=== PATIENT | female | born 1940 | race Caucasian/White ===

== ENCOUNTER 2019-01-04 10:35 | Outpatient (CLI) | payer MEDICARE, OTHER, SELFPAY ==
--- NOTE | 2019-01-04 10:29 | DI.RAD_ITS ---
SYMPTOMS/DIAGNOSIS: RT KNEE PAIN, LT KNEE PAIN LEFT KNEE: Three views. There is moderately severe narrowing of the medial femoral tibial joint space. Periarticular spurring is seen involving all three joint compartments. There is moderate narrowing of the patellofemoral joint. The bones are intact. No suspicious lytic or sclerotic lesions are seen. There does appear to be a small joint effusion. Vascular calcifications are present. IMPRESSION: Moderately severe osteoarthritis of the left knee. RIGHT KNEE: Three views. There is mild periarticular spurring seen in the femoral tibial joints. The joint spaces are otherwise well maintained. The bones are intact and normally mineralized. Vascular calcifications are seen in the soft tissues. IMPRESSION: Mild osteoarthritis of the right knee.
== END 2019-01-04 10:55 ==
PROVIDERS: PCP Physician Assistant; Referring Provider Physician Assistant; Visit Provider Student in an Organized Health Care Education/Training Program
DX: M25.561 Pain in right knee (principal); M17.11 Unilateral primary osteoarthritis, right knee; M25.562 Pain in left knee; M17.12 Unilateral primary osteoarthritis, left knee
CPT/HCPCS: 73562; 99203; 99213

== ENCOUNTER → 2019-02-01 10:21 | Outpatient (BNVA) | payer MEDICARE, OTHER, SELFPAY | PROVIDERS: PCP Physician Assistant; Referring Provider Physician Assistant; Visit Provider Student in an Organized Health Care Education/Training Program | DX: M25.562 Pain in left knee (principal); M17.12 Unilateral primary osteoarthritis, left knee | CPT/HCPCS: 20610; 99213; J1040 ==

== ENCOUNTER 2019-12-18 15:04 | Inpatient (IN) | payer MEDICARE, OTHER, SELFPAY ==
[2019-12-18] VITALS (28 sets, daily range): BP systolic 120–175; BP diastolic 63–95; PULSE 75–111; RESP 16–32; TEMP 36.7–40.2; O2SAT 93–97
[2019-12-18] MEDS: Normal Saline 250 ML IV (15:54)
[2019-12-18 15:56] LABS: Abs Immature Grans 0.02 k/cumm (0.0-0.09); Absolute Basophil Count 0.02 k/cumm (0.0-0.2); Absolute Lymphocyte Count 0.44 k/cumm (1.2-3.4); Absolute Monocyte Count 0.95 k/cumm (0.11-0.7); Basophils % 0.2; HCT 42.2 % (36.0-46.0); Immature Grans % 0.2 %; Lymphocytes % 3.8; Mean Corp. HGB Concentration 33.2 g/dL (32.0-36.0); Mean Corpuscular Hemoglobin 32.2 pg (27.0-33.0); Mean Platelet Volume 10.6 fL (8.0-11.0); Monocytes % 8.2; Neutrophils % 87.6; Platelet Count 177 x1000/uL (130-400); RBC 4.35 m/cumm (4.00-5.20); RBC Distribution Width 13.3 % (11.7-14.6); White Blood Cell Count 11.64 k/cumm (4.4-10.8)
--- NOTE | 2019-12-18 16:06 | ED.GENADUL_ITS ---
Discharge Plan Discharge Details Chief Complaint: Nk/Back Pain Primary Care Provider: Unknown,Unknown ED Provider: Bk Mancia Home Meds and New Rx's Prescriptions: No Action levothyroxine [Synthroid] 50 MCG tablet 50 mcg PO DAILY AM RF: 0 simvastatin 20 MG tablet 20 mg PO HS RF: 0 nitroglycerin [Nitrostat] 0.4 MG tablet, sublingual 0.4 mg Sublingual DIRECTED PRNRF: 0 omeprazole 20 MG capsule,delayed release(DR/EC) 20 mg PO DAILY AM RF: 0 aspirin 81 MG tablet,chewable 81 mg PO DAILY AM RF: 0 timolol maleate 15 ML drops 5 ml Ophthalmic DAILY AM RF: 0 mometasone 45 GM cream 15 gm Topical DAILY PRN PRNRF: 0 Gerber Multivitamin with Mineral 1 EACH tablet 1 ea PO HS RF: 0 celecoxib [Celebrex] 200 MG capsule 200 mg PO DAILY AM RF: 0 oxybutynin chloride 5 MG tablet extended release 24hr 5 mg PO HS RF: 0 venlafaxine 75 mg Tablet 75 mg PO DAILY AM RF: 0 acetaminophen [Tylenol Extra Strength] 500 mg Tablet 1,000 mg PO HS RF: 0 lisinopril 5 mg Tablet 5 mg PO HS RF: 0 metoclopramide HCl [Reglan] 10 mg Tablet 10 mg PO DAILY AM RF: 0 Medical Decision Making 79-year-old female presents complaining of low back pain for 4 days time. Worsened today while she was on route back to her home where she lives alone. She arrives afebrile, interactive, well-appearing. She has normal motor and sensory function of the lower extremity. She denies trauma or recent illness. After approximately 90 minutes in the emergency department, the patient appeared less responsive to the nurses and they found her to have spiked a temperature to 104 degrees. Differential diagnosis includes urinary tract infection, colitis, occult presentation of diverticulitis, as well as occult presentation of respiratory infection. Patient referred for laboratory testing, chest x-ray, CT scan of the abdomen. Urinalysis is notable for large leuk esterase, greater than 50 white blood cells per high-powered field and no epithelial cells. Consistent with pyuria. CT images: Reveal bilateral hydronephrosis, the left side appears chronic with some atrophic changes of the kidney. 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 See formal report. Labs HPI General Mode of arrival: ambulatory . Date/Time Provider Initiated Documentation: 12/18/19 15:05 . Limitations to Documentation: no limitations . Information obtained by: patient . History of Present Illness 79 year old F presents to the emergency department with the chief complaint of Low back pain for 4 days, worse when seated., described as moderate, Quality is described as dull and constant, and is localized to the back. Patient reports no radiation. Patient started experiencing this day(s) and it has been constant. Rest improves symptom(s), Other factors that worsen symptoms (Seems to be worse while sitting) . Patient notes other (No numbness, weakness, change to bowel or bladder habits). Patient did receive the following treatments prior to arrival, none Related Data Home Medications Medication Instructions Recorded Confirmed aspirin 81 mg PO DAILY AM 02/14/16 12/18/19 celecoxib [CeleBREX] 200 mg PO DAILY AM 02/14/16 12/18/19 levothyroxine [Synthroid] 50 mcg PO DAILY AM 02/14/16 12/18/19 mometasone 15 gm TOPICAL DAILY PRN PRN 02/14/16 12/18/19 mv,with [id number] 1 ea PO HS 02/14/16 12/18/19 [Gerber Multivit For Women Caplet] nitroglycerin [Nitrostat] 0.4 mg SUBLINGUAL DIRECTED PRN 02/14/16 12/18/19 omeprazole 20 mg PO DAILY AM 02/14/16 12/18/19 oxybutynin chloride 5 mg PO HS 02/14/16 12/18/19 simvastatin 20 mg PO HS 02/14/16 12/18/19 timolol maleate 5 ml OPHTHALMIC DAILY AM 02/14/16 12/18/19 acetaminophen [Tylenol Extra 1,000 mg PO HS 12/18/19 12/18/19 Strength] lisinopril 5 mg PO HS 12/18/19 12/18/19 metoclopramide HCl [Reglan] 10 mg PO DAILY AM 12/18/19 12/18/19 venlafaxine 75 mg PO DAILY AM 12/18/19 12/18/19 Allergies Allergy/AdvReac Type Severity Reaction Status Date / Time ibuprofen AdvReac Intermediate abd pain Unverified 12/18/19 15:19 General Stated Complaint: Nk/Back Pain HOLLAND: 3 Review of Systems Narrative: 6 systems reviewed and otherwise negative [facility] Social History Smoking/Tobacco Use Status: Never Alcohol Intake: current Alcohol Intake frequency: 3 or more drinks per day Alcohol type: wine Drug use: Never Substance use type: does not use Do you feel safe at home: Yes Do you feel safe in your relationship?: Yes Exam Narrative Exam Narrative: GEN: awake, alert, oriented 3. Pleasant, well groomed, interactive. HEAD: Normocephalic, atraumatic ENT: Mucous membranes moist, oropharynx unremarkable, External ear exam unremarkable EYES: PERRL, EOMI NECK: Full ROM, no LORRAINE, no menigismus CHEST/RESP: Nontender, clear to auscultation bilateral, no wheeze/rhonchi/rales CARDIOVASCULAR: RRR, no murmur, rub pramod. 2+ Rad pulse bilateral ABDOMEN: Soft, nontender, no mass. +Bowel sound Back: No midline step-off, tenderness, deformity, there is skin discoloration at the right superior gluteal cleft without fluctuance or tenderness EXT: Full ROM, no edema, no rash. Motor 5 out of 5, sensation intact throughout. Neuro: Grossly normal neurologic exam, conversant, interactive. Psych: Speech fluent, thoughts congruent, affect normal Course Vital Signs Vital signs: Vital Signs Temperature 36.7 C 12/18/19 15:15 Pulse 75 12/18/19 15:15 Respiratory Rate 18 12/18/19 15:15 Blood Pressure 144/88 H 12/18/19 15:15 Pulse Oximetry 95 12/18/19 15:15 Temperature 36.7 C 12/18/19 15:15 Temperature Source Temporal Artery Scan 12/18/19 15:15 Pulse 75 12/18/19 15:15 Respiratory Rate 18 12/18/19 15:15 Respiratory Effort Non-Labored 12/18/19 15:20 Blood Pressure 144/88 H 12/18/19 15:15 Blood Pressure Position Supine 12/18/19 15:15 Pulse Oximetry 95 12/18/19 15:15 Oxygen Delivery Method Room Air 12/18/19 15:15 Oxygen Flow Rate 0 12/18/19 15:15 Pain Level 5 12/18/19 15:15 Lab/Test Results Lab/Test Results: Laboratory Tests Range/Units 12/18/19 15:35 WBC (4.4-10.8) k/cumm 11.64 H RBC (4.00-5.20) m/cumm 4.35 Hgb (12.0-15.5) g/dL 14.0 Hct (36.0-46.0) % 42.2 MCV (80-95) fL 97.0 H MCH (27.0-33.0) pg 32.2 MCHC (32.0-36.0) g/dL 33.2 RDW (11.7-14.6) % 13.3 Plt Count (130-400) x1000/uL 177 MPV (8.0-11.0) fL 10.6 Immature Gran % % 0.2 Neutrophils % 87.6 Lymphocytes % 3.8 Monocytes % 8.2 Eosinophils % 0.0 Basophils % 0.2 Absolute Neutrophils (1.2-6.7) k/cumm 10.20 H Absolute Lymphocytes (1.2-3.4) k/cumm 0.44 L Absolute Monocytes (0.11-0.7) k/cumm 0.95 H Absolute Eosinophils (0.0-0.7) k/cumm 0.00 Absolute Basophils (0.0-0.2) k/cumm 0.02
[2019-12-18 16:09] LABS: ALT 38 U/L (14-59); AST 32 U/L (15-37); Albumin 3.6 g/dL (3.4-5.0); Alkaline Phosphatase 73 U/L (46-116); Anion Gap 8.4 mmol/L (3-11); BUN 27 mg/dL (7-18); Bilirubin, Total 0.4 mg/dL (0.2-1.0); CO2 26.6 mmol/L (21.0-32.0); CREATININE 1.67 mg/dL (0.55-1.02); Calcium 9.1 mg/dL (8.5-10.1); Chloride 104 mmol/L (98-107); Estimated GFR 29.67 (mL/min/1.73m2); Glucose 154 mg/dL (74-106); Potassium 4.2 mmol/L (3.5-5.1); Sodium 139 mmol/L (136-145)
--- NOTE | 2019-12-18 16:13 | DI.CT_ITS ---
EXAM: CT ABDOMEN PELVIS WO CLINICAL HISTORY: low back and groin pain. TECHNIQUE: Imaging Protocol: Axial computed tomography images with coronal and sagittal reformatted images were created and reviewed. Exam is limited by patient motion. The patient was unable to follow directions. There is artifact i n the pelvis from a right hip prosthesis. Oral: no COMPARISON: No exams were available for comparison FINDINGS: ABDOMEN: Lung Bases: Normal where visualized. Liver: Fatty infiltration. No measurable mass. Gallbladder and biliary tract: Status post cholecystectomy. No biliary dilation. Pancreas: Normal density, no abnormal calcifications or inflammatory process. Spleen: Normal. Kidneys: There is a 9 millimeter stone in the right ureteropelvic junction causing moderate hydroneph rosis. The right kidney is mildly edematous. There is mild perinephric stranding. There is a stone at the left ureteropelvic junction measuring 14 x 18 millimeters. There is mild left hydronephrosis . There are 2 nonobstructing stones seen at the lower pole of the left kidney. No masses seen. Adrenal glands: No masses seen. Lymph nodes: Within normal limits. Abdominal Aorta: Abdominal portion non-dilated. PELVIS: Bladder: Small amount of air is seen within the bladder which may be secondary to recent catheterizat ion. Symmetric distention, no gross wall thickening. Bowel: No obstruction or bowel wall thickening. Peritoneal cavity: No ascites, collection or mesenteric inflammatory response. Reproductive organs: Within normal limits. Bones: Degenerative changes, greatest at L5-S1. IMPRESSION: 9 millimeter stone at the right ureteropelvic junction causing moderate hydronephrosis.. [address] stone at the left ureteropelvic junction causing mild hydronephrosis. RADIATION DOSE DELIVERED: 900.68mGy.cm Total DLP DATA REPOSITORY: All CT scans at this facility are submitted to the National Radiology Data Registry (NRDR) Dose Index Registry (DIR) with the [employer] (ACR). RADIATION OPTIMIZATION: All CT scans at this facility use at least one of these dose optimization te chniques: automated exposure control; mA and/or kV adjustment per patient size (includes targeted exa ms where dose is matched to clinical indication); or iterative reconstruction.
[2019-12-18] MEDS: ACETAMINOPHEN 1,000 MG/100 ML BTL 400 MG IVPB (16:34)
--- NOTE | 2019-12-18 16:52 | DI.RAD_ITS ---
EXAM: XR CHEST 2V PA LATERAL CLINICAL HISTORY: fever TECHNIQUE: 2D digital imaging was performed. COMPARISON: CT CT ABDOMEN PELVIS WO from 12/18/2019 FINDINGS: The heart size is within normal limits. The aorta is ectatic. The right diaphragm is mildly elevat ed. The lungs appear clear. No infiltrate or effusion is seen. There are no thoracic compression f ractures. IMPRESSION: No acute abnormality.
[2019-12-18 17:19] LABS: Bilirubin Negative (Negative); Blood Moderate (Negative); Clarity Clear (Clear); Glucose Negative (Negative); Ketones Negative (Negative); Leukocyte Esterase Large (Negative); Nitrite Negative (Negative); Urobilinogen 0.2 EU/dL (Up TO 0.2); pH 7.5 (5-8)
[2019-12-18] MEDS: Normal Saline 1,000 ML 125 ML IV ×2 (17:21→23:16)
[2019-12-18 17:22] LABS: C & S Indicated? Yes
[2019-12-18 17:23] LABS: Bacteria Negative HPF (Negative); Crystals Negative HPF (Negative); Epithelial Cells Negative HPF (Negative); Mucus Negative (Negative); Other Cells Few Renal (Negative); RBC Negative HPF (0-2); WBC >50 HPF (0-5)
--- NOTE | 2019-12-18 18:11 | DI.VRAD_ITS ---
Addendum created by Howard Prince MD on 12/18/2019 6:14:21 PM EDT Findings were discussed with RACHEL PINA at 12/18/2019 6:14 PM EDT. Initial report created on 12/18/2019 6:10:59 PM EDT PROCEDURE INFORMATION: Exam: CT Abdomen And Pelvis Without Contrast Exam date and time: 12/18/2019 5:44 PM Age: 79 years old Clinical indication: Fever; Patient HX: PT AMS TECHNIQUE: Imaging protocol: Computed tomography of the abdomen and pelvis without contrast. COMPARISON: No relevant prior studies available. FINDINGS: Heart: There is some minimal pericardial thickening anteriorly likely representing a small pericardial effusion. Lungs: There is mild dependent atelectasis. Liver: There is a diffuse decrease in hepatic parenchymal density, consistent with severe fatty infiltration. Gallbladder and bile ducts: There has been a cholecystectomy. Pancreas: Normal. No ductal dilation. Spleen: The spleen is normal. Adrenals: Normal. No mass. Kidneys and ureters: There is mild right hydronephrosis with an obstructing 9 mm calculus (423 Hounsfield units) in the ureteropelvic junction. This calculus is faintly visualized on the plan checker view. There is a stone in the left ureteropelvic junction which measures 14 mm in maximal axial diameter and 18 mm longitudinally. This does not appear to be causing obstruction although there is minimal left hydronephrosis and proximal hydroureter. A stricture more distal in the left ureter cannot be excluded. This calculus is also visible on the plan checker view. There are tiny calculi and likely some gravel in the dependent calices of both kidneys. Stomach and bowel: Unremarkable. No obstruction. No mucosal thickening. Appendix: No evidence of appendicitis. Intraperitoneal space: Unremarkable. No free air. No significant fluid collection. Vasculature: Unremarkable. No abdominal aortic aneurysm. Lymph nodes: Unremarkable. No enlarged lymph nodes. Bladder: There is a small amount of gas in the urinary bladder. If there has not been recent instrumentation, gas-forming organism or, less likely fistula cannot be excluded. Reproductive: Unremarkable as visualized. Bones/joints: There is a partially visualized total right hip replacement. There is moderate to marked degenerative disc disease at L5-S1. There is mild anterior spondylolisthesis of L4 on L5 likely due to degenerative changes of the facet joints. No fracture is seen. The bones are diffusely demineralized. Soft tissues: There are periumbilical abdominal coils suggesting prior hernia repair. IMPRESSION: 1. Mild bilateral hydronephrosis. On the right this appears to be due to an obstructing 9 mm UPJ calculus. On the left there is also a UPJ calculus although for it does not appear to be obstructing. 2. Small amount of air in the urinary bladder which could reflect recent instrumentation, gas-forming organism, or less likely fistula. No apparent fistula is visible. 3. Marked fatty infiltration of the liver. Dictated and Authenticated by: Howard Prince MD. Ordering:RAYMUNDO Bourgeois MD
--- NOTE | 2019-12-18 18:18 | DI.VRAD_ITS ---
PROCEDURE INFORMATION: Exam: XR Chest, 2 Views Exam date and time: 12/18/2019 5:51 PM Age: 79 years old Clinical indication: Fever TECHNIQUE: Imaging protocol: XR of the chest Views: 2 views. COMPARISON: No relevant prior studies available. FINDINGS: Lungs: Unremarkable. No consolidation. Pleural space: Unremarkable. No pleural effusion. No pneumothorax. Heart/Mediastinum: Unremarkable. No cardiomegaly. Vasculature: The thoracic aorta is tortuous and ectatic. Prominent aortic shadow in the medial right lung base and posteriorly on the lateral view is shown to partly represent periaortic fat on earlier CT abdomen. Bones/joints: Unremarkable for age. IMPRESSION: No acute findings. Dictated and Authenticated by: Howard Prince MD. Ordering:RAYMUNDO Bourgeois MD
--- NOTE | 2019-12-18 19:08 | W.PM.HP.N ---
Date of service: 12/18/19 Time of Service: 19:08 Assessment and Plan Assessment and plan (1) UTI (urinary tract infection): Start date: 12/18/19 Status: Acute Assessment and plan: This is a 79-year-old lady presented to the ED with back pain and eventually having a significant fever spike while in the ED and found to have an obstructing ureteral stone on the right with hydronephrosis and possible pyelonephritis. Started on IV Rocephin after urine and blood cultures. Dr. Holman the urologist did consult from the ED and then placed a right ureteral stent brother patient coming to the [facility] floor. We will continue on IV Rocephin with increased oral hydration with follow-up on cultures and adjustment of medical therapy to oral therapy as appropriate. Dr. Holman will remain in consultation. Qualifiers: Urinary tract infection type: acute pyelonephritis Qualified Code(s): N10 - Acute pyelonephritis (2) Ureteral calculus: Start date: 12/18/19 Status: Acute Assessment and plan: Radiology no history of renal stones in the past but has chronic hydronephrosis with evidence of some scarring on the left. She was treated acutely by Dr. Holman the urologist in consultation and he will continue to follow with hospice. We may initiate IV hydration of the patient doing well with oral hydration. I will place her on Flomax. History of Present Illness History of Present Illness Chief Complaint: Low back pain for 4 days with acute onset fever Narrative: This is a 79-year-old female patient recently living alone brought in by her daughter who is a ICU nurse at this hospital. She had a 4-day history of low back pain which is not improving and was worse with sitting. In the ED she spiked a temperature up to 104 ?F and her urinalysis was positive for UTI as well as CT scan revealing hydronephrosis bilaterally but acutely on the right with a UPJ junction 9 mm renal stone obstructing the right side with some evidence of pyelonephritis. Patient was started on Rocephin after urine and blood cultures and Dr. Holman the urologist was consulted from the ED and brought the patient to the OR for stent into the right ureter prior to me seeing the patient. At the time I saw the patient she was slightly confused and a poor historian but comfortable appearing though she had diffuse sweating appeared to have just spiked another temperature. She was vague about her back pain and did not complain of any abdominal pain, nausea or vomiting. She denied any urinary symptoms. As stated she is a poor historian. She was not attended by her daughter at the time of my visit. Review of Systems Narrative: 13 point review of systems otherwise unrevealing or stable as best can be ascertained with patient being a poor historian. I am unsure whether she has early dementia but has had some stressors recently reported by the ED physician that she lost her within the last weeks. She does have a history of depression. She is not on any medications indicating dementia. [facility] Medical History (Updated 12/19/19 @ 00:18 by Grover Castro) CAD (coronary artery disease), elem coronary artery (Acute) Depression (Chronic) GERD (gastroesophageal reflux disease) (Chronic) Glaucoma (Chronic) HTN (hypertension) (Chronic) Hyperlipidemia (Acute) Hypothyroid (Chronic) OAB (overactive bladder) (Acute) Osteoarthritis (Chronic) Social History Smoking/Tobacco Use Status: Never Alcohol Intake: current Alcohol Intake frequency: 3 or more drinks per day Alcohol type: wine Drug use: Never Substance use type: does not use Do you feel safe at home: Yes Do you feel safe in your relationship?: Yes Meds Home Medications and Allergies Home Medications Medication Instructions Recorded Confirmed Type aspirin 81 mg PO DAILY AM 02/14/16 12/18/19 History celecoxib [CeleBREX] 200 mg PO DAILY AM 02/14/16 12/18/19 History levothyroxine [Synthroid] 50 mcg PO DAILY AM 02/14/16 12/18/19 History mometasone 15 gm TOPICAL DAILY PRN PRN 02/14/16 12/18/19 History mv,with [id number] 1 ea PO HS 02/14/16 12/18/19 History [Gerber Multivit For Women Caplet] nitroglycerin [Nitrostat] 0.4 mg SUBLINGUAL DIRECTED PRN 02/14/16 12/18/19 History omeprazole 20 mg PO DAILY AM 02/14/16 12/18/19 History oxybutynin chloride 5 mg PO HS 02/14/16 12/18/19 History simvastatin 20 mg PO HS 02/14/16 12/18/19 History timolol maleate 5 ml OPHTHALMIC DAILY AM 02/14/16 12/18/19 History acetaminophen [Tylenol Extra 1,000 mg PO HS 12/18/19 12/18/19 History Strength] lisinopril 5 mg PO HS 12/18/19 12/18/19 History metoclopramide HCl [Reglan] 10 mg PO DAILY AM 12/18/19 12/18/19 History venlafaxine 75 mg PO DAILY AM 12/18/19 12/18/19 History Allergies Allergy/AdvReac Type Severity Reaction Status Date / Time ibuprofen AdvReac Intermediate abd pain Unverified 12/18/19 15:19 Exam Narrative Exam Narrative: General: Patient has a flattened affect with fair eye contact and no variation. She is alert and oriented to place and person, not to time or purpose. She appears appropriate for age and is in no acute distress. Skin: Pale, warm and diaphoretic appearing to have just broken a fever. HEENT: Normocephalic, eyes with pupils equal and reactive light symmetrically, extraocular movement intact and sclera anicteric. Oral mucosa with pink moist mucosa. Neck: Supple without JVD. Lungs: Fair aeration, clear to auscultation and percussion. Back: Kyphotic with no CVA tenderness. Decreased range of motion. Heart: Regular rate and rhythm with quite systolic murmur left sternal border variable with inspiration. No gallops or rubs. Breast: Exam deferred. Abdomen: Obese contour, soft with no focalizing tenderness or guarding. No palpable hepatosplenomegaly. Bowel sounds positive all quadrants. Genitalia/rectal: Exam deferred. Extremities: Without clubbing, cyanosis or edema with diffuse bony osteoarthritic changes. Neuro: No focalizing motor deficits, cranial nerves II through XII grossly intact except for decreased hearing acuity, no tremors. Psych: Flattened affect with depressed mood at the time of visit the patient. Remote memory intact. Recent memory may have some deficits. Patient is a poor historian. Results Imaging Imaging Studies: PROCEDURE INFORMATION: Exam: CT Abdomen And Pelvis Without Contrast Exam date and time: 12/18/2019 5:44 PM Age: 79 years old Clinical indication: Fever; Patient HX: PT AMS TECHNIQUE: Imaging protocol: Computed tomography of the abdomen and pelvis without contrast. COMPARISON: No relevant prior studies available. FINDINGS: Heart: There is some minimal pericardial thickening anteriorly likely representing a small pericardial effusion. Lungs: There is mild dependent atelectasis. Liver: There is a diffuse decrease in hepatic parenchymal density, consistent with severe fatty infiltration. Gallbladder and bile ducts: There has been a cholecystectomy. Pancreas: Normal. No ductal dilation. Spleen: The spleen is normal. Adrenals: Normal. No mass. Kidneys and ureters: There is mild right hydronephrosis with an obstructing 9 mm calculus (423 Hounsfield units) in the ureteropelvic junction. This calculus is faintly visualized on the construction job cost estimator view. There is a stone in the left ureteropelvic junction which measures 14 mm in maximal axial diameter and 18 mm longitudinally. This does not appear to be causing obstruction although there is minimal left hydronephrosis and proximal hydroureter. A stricture more distal in the left ureter cannot be excluded. This calculus is also visible on the construction job cost estimator view. There are tiny calculi and likely some gravel in the dependent calices of both kidneys. Stomach and bowel: Unremarkable. No obstruction. No mucosal thickening. Appendix: No evidence of appendicitis. Intraperitoneal space: Unremarkable. No free air. No significant fluid collection. Vasculature: Unremarkable. No abdominal aortic aneurysm. Lymph nodes: Unremarkable. No enlarged lymph nodes. Bladder: There is a small amount of gas in the urinary bladder. If there has not been recent instrumentation, gas-forming organism or, less likely fistula cannot be excluded. Reproductive: Unremarkable as visualized. Bones/joints: There is a partially visualized total right hip replacement. There is moderate to marked degenerative disc disease at L5-S1. There is mild anterior spondylolisthesis of L4 on L5 likely due to degenerative changes of the facet joints. No fracture is seen. The bones are diffusely demineralized. Soft tissues: There are periumbilical abdominal coils suggesting prior hernia repair. IMPRESSION: 1. Mild bilateral hydronephrosis. On the right this appears to be due to an obstructing 9 mm UPJ calculus. On the left there is also a UPJ calculus although for it does not appear to be obstructing. 2. Small amount of air in the urinary bladder which could reflect recent instrumentation, gas-forming organism, or less likely fistula. No apparent fistula is visible. 3. Marked fatty infiltration of the liver. Dictated and Authenticated by: Howard Prince MD PROCEDURE INFORMATION: Exam: XR Chest, 2 Views Exam date and time: 12/18/2019 5:51 PM Age: 79 years old Clinical indication: Fever TECHNIQUE: Imaging protocol: XR of the chest Views: 2 views. COMPARISON: No relevant prior studies available. FINDINGS: Lungs: Unremarkable. No consolidation. Pleural space: Unremarkable. No pleural effusion. No pneumothorax. Heart/Mediastinum: Unremarkable. No cardiomegaly. Vasculature: The thoracic aorta is tortuous and ectatic. Prominent aortic shadow in the medial right lung base and posteriorly on the lateral view is shown to partly represent periaortic fat on earlier CT abdomen. Bones/joints: Unremarkable for age. IMPRESSION: No acute findings. Dictated and Authenticated by: Howard Prince MD. Labs Result diagrams: 12/18/19 15:35 12/18/19 15:35 Labs: Laboratory Results - last 24 hr 12/18/19 12/18/19 12/18/19 15:35 15:35 17:00 WBC 11.64 H RBC 4.35 Hgb 14.0 Hct 42.2 MCV 97.0 H MCH 32.2 MCHC 33.2 RDW 13.3 Plt Count 177 MPV 10.6 Immature Gran % 0.2 Neutrophils % 87.6 Lymphocytes % 3.8 Monocytes % 8.2 Eosinophils % 0.0 Basophils % 0.2 Absolute Neutrophils 10.20 H Absolute Lymphocytes 0.44 L Absolute Monocytes 0.95 H Absolute Eosinophils 0.00 Absolute Basophils 0.02 Sodium 139 Potassium 4.2 Chloride 104 Carbon Dioxide 26.6 Anion Gap 8.4 BUN 27 H Creatinine 1.67 H Estimated GFR/1.73 m2 29.67 Glucose 154 H Calcium 9.1 Total Bilirubin 0.4 AST 32 ALT 38 Alkaline Phosphatase 73 Total Protein 8.0 Albumin 3.6 Urine Color Yellow Urine Clarity Clear Urine pH 7.5 Ur Specific [place] 1.020 Urine Protein 100 H Urine Ketones Negative Urine Blood Moderate H Urine Nitrite Negative Urine Bilirubin Negative Urine Urobilinogen 0.2 Ur Leukocyte Esterase Large H Urine RBC Negative Urine WBC >50 H Ur Epithelial Cells Negative Urine Crystals Negative Urine Bacteria Negative Urine Mucus Negative Urine Other Few renal Ur Culture Indicated? Yes Urine Glucose Negative Last Vital Signs Temp 36.7 C 12/18/19 18:16 Pulse 106 H 12/18/19 18:16 Resp 31 H 12/18/19 18:20 BP 175/90 H 12/18/19 18:16 Pulse Ox 95 12/18/19 18:16 COVID-19 Screening In the past 14 days, have you traveled outside of [place] or [place]?: NO Had IN PERSON contact w/suspected or confirmed C-19 person: No
[2019-12-18] MEDS: cefTRIAXone 1 GM/50 ML BAG IVPB (19:11)
--- NOTE | 2019-12-18 19:32 | W.UROLOGYCON ---
Date of service: 12/18/19 Time of Service: 19:32 Assessment and Plan Assessment and plan (1) Sepsis syndrome: Status: Acute Assessment and plan: We will plan on placing a right ureteral stent to allow any infected urine to drain while awaiting her blood and urine cultures and giving her broad-spectrum antibiotics. Once her infection has been cleared, we will be able to plan ureteroscopy with holmium laser of the stone on an elective basis rather than an emergent one. (2) Ureteral calculus: Status: Acute History of Present Illness History of Present Illness Chief Complaint: Ureteral stones Narrative: This is a 79-year-old woman who has been complaining of back pain for the past 5 to 7 days. This morning, she began having pain in the lower quadrants as well. She describes an overall feeling of just not feeling well. She was visiting with her daughter when she asked to be brought back home. On the way home, since she was feeling poorly, she asked to be brought to the emergency room. While in the emergency room, she spiked a temperature over 40. She [address] scanning which showed a right proximal ureteral stone with marked hydronephrosis and perinephric stranding. There is a left UPJ stone with some renal atrophy on the left and dilation. There is no stranding on the left side. She is being admitted for IV antibiotics and drainage of her presumed infected right kidney. She has no prior history of kidney stones. Review of Systems Constitutional Constitutional: Reports chills, Reports fever(s) and Reports weakness Cardiovascular Cardiovascular: Denies chest pain, Denies irregular heart rhythm and Denies dyspnea Respiratory Respiratory: Denies cough and Denies dyspnea Gastrointestinal Gastrointestinal: Reports abdominal pain and Denies vomiting Musculoskeletal Musculoskeletal: Reports myalgias Neurologic Neurologic: Denies convulsions and Reports weakness Hematologic/Lymphatic Hematologic/Lymphatic: Denies easy bleeding and Denies easy bruising [facility] Social History Smoking/Tobacco Use Status: Never Alcohol Intake: current Alcohol Intake frequency: 3 or more drinks per day Alcohol type: wine Drug use: Never Substance use type: does not use Do you feel safe at home: Yes Do you feel safe in your relationship?: Yes Exam Narrative Exam Narrative: She is cooperative. She does not look flushed at this time. Neck Neck: supple Resp Effort & Inspection: normal respiratory effort Auscultation: clear to auscultation bilaterally Cardio Rate: regular rate Rhythm: regular rhythm GI Palpation: soft and no guarding Neuro General: patient alert and patient awake Results Last Vital Signs Temp 36.7 C 12/18/19 18:16 Pulse 106 H 12/18/19 18:16 Resp 31 H 12/18/19 18:20 BP 175/90 H 12/18/19 18:16 Pulse Ox 95 12/18/19 18:16 Labs Result diagrams: 12/18/19 15:35 12/18/19 15:35 Labs: Laboratory Results - last 24 hr 12/18/19 12/18/19 12/18/19 15:35 15:35 17:00 WBC 11.64 H RBC 4.35 Hgb 14.0 Hct 42.2 MCV 97.0 H MCH 32.2 MCHC 33.2 RDW 13.3 Plt Count 177 MPV 10.6 Immature Gran % 0.2 Neutrophils % 87.6 Lymphocytes % 3.8 Monocytes % 8.2 Eosinophils % 0.0 Basophils % 0.2 Absolute Neutrophils 10.20 H Absolute Lymphocytes 0.44 L Absolute Monocytes 0.95 H Absolute Eosinophils 0.00 Absolute Basophils 0.02 Sodium 139 Potassium 4.2 Chloride 104 Carbon Dioxide 26.6 Anion Gap 8.4 BUN 27 H Creatinine 1.67 H Estimated GFR/1.73 m2 29.67 Glucose 154 H Calcium 9.1 Total Bilirubin 0.4 AST 32 ALT 38 Alkaline Phosphatase 73 Total Protein 8.0 Albumin 3.6 Urine Color Yellow Urine Clarity Clear Urine pH 7.5 Ur Specific [place] 1.020 Urine Protein 100 H Urine Ketones Negative Urine Blood Moderate H Urine Nitrite Negative Urine Bilirubin Negative Urine Urobilinogen 0.2 Ur Leukocyte Esterase Large H Urine RBC Negative Urine WBC >50 H Ur Epithelial Cells Negative Urine Crystals Negative Urine Bacteria Negative Urine Mucus Negative Urine Other Few renal Ur Culture Indicated? Yes Urine Glucose Negative
[2019-12-18 19:51] LABS: TSH (W/Ref FT4) 2.74 uIU/mL (0.36-3.74)
--- NOTE | 2019-12-18 20:00 | DI.RAD_ITS ---
EXAM: XR RETROGRADE IN OR CLINICAL HISTORY: Ureteral calculus, sepsis. TECHNIQUE: 2D and realtime digital imaging was performed. CONTRAST MATERIAL: Please see procedure note COMPARISON: No exams were available for comparison FINDINGS: Fluoroscopy was provided in the OR. Some contrast is seen within the left kidney. A stent is seen. Please see procedure note for details. FLUORO TIME: 30.9 seconds RADIATION DOSE DELIVERED:
[2019-12-18] MEDS: Lidocaine 2% Jelly 6 ML SYR (20:46)
[2019-12-18] MEDS: Omnipaque 300 MG/ML 50 ML BTL (20:54)
--- NOTE | 2019-12-18 21:05 | ROE_ITS ---
Date of service: 12/18/19 Time of Service: 21:05 Operative Note Operative Note DATE OF PROCEDURE: 12/18/19 PRE-OP DIAGNOSIS: Right ureteral stone, left kidney stone POST-OP DIAGNOSIS: same PROCEDURE: Cystoscopy, bilateral retrograde pyelogram, insert bilateral ureteral stents SURGEON: Kiran Holman ANESTHESIA: MAC ESTIMATED BLOOD LOSS: 0 PATHOLOGY: none sent COMPLICATIONS: None Patient was transported to: floor Patient's condition: stable Implants: Bilateral 6 [place] 22 x 30 cm stents Indications: This is a 79-year-old woman who presented to the emergency room with back pain and weakness. While she was in the emergency room, she spiked a fever to [address] scan she was found to have bilateral urolithiasis. The right stone was in the proximal ureter and there was associated hydronephrosis and perinephric stranding. The left stone was at the ureteropelvic junction and had some atrophic changes in the kidney along with dilation of the collecting system but no perinephric stranding. Because of her presumed sepsis and obstructing stone, she presents for stent placement Procedure Description: The patient was brought to the operating room on 12/18/2019. She is placed in the dorsal lithotomy position and given monitored anesthesia care. Her genitalia is prepped and draped. 2% Xylocaine jelly was instilled into the urethra to act as a local anesthetic. A 22 [place] rigid cystoscope was passed through the urethra into the bladder. The bladder was inspected with a 30 degree lens. The bladder mucosa appeared somewhat hyperemic. The right ureteral orifice was visualized and a 6 [place] access catheter was passed through the cystoscope into the right ureteral orifice. Retrograde film was obtained by injecting Omnipaque through the access catheter under fluoroscopic guidance. Large filling defect was seen in the proximal ureter. The guidewire was then passed through the access catheter and maneuvered up the right ureter. The access catheter was removed and a 6 [place] variable length stent was advanced over the wire. The proximal end of the stent was seen curled in the renal pelvis and the distal end was seen curled within the bladder. Murky urine was seen draining from the right kidney. The same procedure was then performed on the patient's left side. The left orifice was cannulated and a retrograde film showed a filling defect in the renal pelvis. A Glidewire was advanced and the access catheter was removed. A 6 [place] variable length stent was then advanced over the wire. In this case, the proximal end of the stent was placed into the upper pole calyx and the distal end was curled within the bladder. The positioning of the stents was confirmed both fluoroscopically and cystoscopically. The cystoscope was removed a 16 [place] Oropeza catheter was then passed through the urethra into the bladder. The catheter balloon was inflated with 10 cc of sterile water and the catheter was hooked to gravity drainage. The patient tolerated this procedure well. She will be taken upstairs to her room [facility] unit.
[2019-12-18] MEDS: Acetaminophen 500 MG TAB 1000 MG PO (22:11)
[2019-12-18] MEDS: Oxybutynin-CR 5 MG TABCR PO (22:11)
[2019-12-18] MEDS: Heparin 5,000 UNITS/ML VIAL 5000 UNITS SC (22:12)
[2019-12-18] MEDS: Simvastatin 20 MG TAB PO (22:12)
[2019-12-18] MEDS: Lisinopril 5 MG TAB PO (22:12)
[2019-12-19] VITALS (8 sets, daily range): BP systolic 104–136; BP diastolic 67–74; PULSE 58–88; RESP 17–20; TEMP 36.8–38; O2SAT 95–98
[2019-12-19] MEDS: Levothyroxine 50 MCG TAB PO (06:16)
[2019-12-19] MEDS: Omeprazole 20 MG CAPCR PO (06:16)
[2019-12-19] MEDS: Heparin 5,000 UNITS/ML VIAL 5000 UNITS SC ×3 (06:17→20:17)
[2019-12-19 07:25] LABS: HCT 36.4 % (36.0-46.0); HGB 11.9 g/dL (12.0-15.5); Mean Corp. HGB Concentration 32.7 g/dL (32.0-36.0); Mean Corpuscular Hemoglobin 32.2 pg (27.0-33.0); Mean Corpuscular Volume 98.4 fL (80-95); Platelet Count 186 x1000/uL (130-400); RBC Distribution Width 13.7 % (11.7-14.6); White Blood Cell Count 12.78 k/cumm (4.4-10.8)
[2019-12-19] MEDS: Normal Saline 1,000 ML 100 ML IV ×2 (07:39→20:04)
[2019-12-19 07:40] LABS: ALT 44 U/L (14-59); AST 49 U/L (15-37); Albumin 2.7 g/dL (3.4-5.0); Alkaline Phosphatase 70 U/L (46-116); Anion Gap 9.5 mmol/L (3-11); BUN 25 mg/dL (7-18); Bilirubin, Total 0.3 mg/dL (0.2-1.0); CO2 24.5 mmol/L (21.0-32.0); CREATININE 1.51 mg/dL (0.55-1.02); Chloride 107 mmol/L (98-107); Estimated GFR 33.33 (mL/min/1.73m2); Glucose 144 mg/dL (74-106); Potassium 3.7 mmol/L (3.5-5.1); Sodium 141 mmol/L (136-145); Total Protein 6.5 g/dL (6.4-8.2)
[2019-12-19] MEDS: Venlafaxine 75 MG TAB PO (08:20)
[2019-12-19] MEDS: Tamsulosin 0.4 MG CAPCR PO (08:21)
[2019-12-19] MEDS: Celecoxib 200 MG CAP PO (08:21)
[2019-12-19] MEDS: Aspirin 81 MG CHEW PO (08:21)
[2019-12-19 09:18] LABS: C-Reactive Protein 17.05 mg/dL (0.0-0.3)
[2019-12-19] MEDS: cefTRIAXone 1 GM/50 ML BAG IVPB (09:32)
[2019-12-19 09:35] LABS: Procalcitonin 35.8 ng/mL
--- NOTE | 2019-12-19 11:45 | PGE_ITS ---
Date of Service Date of service: 12/19/19 Time of Service: 11:45 Assessment and Plan Assessment and plan (1) UTI (urinary tract infection): Start date: 12/19/19 Start time: 11:56 Status: Acute Assessment and plan: Pain is improved. Blood cultures growing gram negative bacteria. Afebrile, leukocytosis. urine cx with gram negative rods Increase ceftriaxone to 2 gm q 24 hours. Echo for Friday d/ hol weekend Urology to follow patient. Continue whitaker Qualifiers: Urinary tract infection type: acute pyelonephritis Qualified Code(s): N10 - Acute pyelonephritis (2) Ureteral calculus: Start date: 12/19/19 Start time: 11:58 Status: Acute Assessment and plan: Radiology no history of renal stones in the past but has chronic hydronephrosis with evidence of some scarring on the left. She was treated acutely by Dr. Holman the urologist in consultation and he will continue to follow. initiate IV hydration of the patient doing well with oral hydration. continue Flomax. (3) Esophageal abnormality: Start date: 12/19/19 Start time: 11:59 Status: Acute Assessment and plan: Vomited this morning after drinking water. Also states vomits after eating foods when trying to understand history of this she states it depends on the situation, if I am eating fast. However she then states she has had two esophegeal dilations in the past the last one being last month. Will obtain records from [facility]. consider consulting surgery if continues overnight. (4) Hyperlipidemia: Start date: 12/19/19 Start time: 11:59 Status: Acute Assessment and plan: Continue simivastitin (5) HTN (hypertension): Start date: 12/19/19 Start time: 12:03 Status: Chronic Assessment and plan: Elevated upon admission, likely from pain, normotensive today. Hold lisinopril at this time due to possible DACIA, unsure without previous labs but given severity of UTI with pyleo likely. Will monitor bp and consider alternatives. (6) Hypothyroid: Start date: 12/19/19 Start time: 12:05 Status: Chronic Assessment and plan: continue levothyroxine (7) DVT prophylaxis: Start date: 12/19/19 Start time: 12:05 Status: Acute Assessment and plan: Heparin subcu. Above case discussed with Dr. Hu who is in agreement. Subjective Subjective Patient reports: no new complaints and feels better Interval history since last seen: Sitting up in bed. AAOx3. Vague in answers. States she only drinks every couple of days because she does not want to become addicted. Denies pain. She is feeling better today. She does states she has had two esophegeal dilations in the past the last one being last month. Concern she continues to choke and vomit when drinking water. She states she drinks nagi lovely and apple juice fine but struggles with water. Will consult surgery is she continues to choke for possible dilitation, will also request records from [facility]. She denies SOB, and chest pain. Exam Narrative Exam Narrative: General: Patient has a flattened affect with fair eye contact and no variation. She is alert and oriented to place and person, not to time or purpose. She appears appropriate for age and is in no acute distress. Skin: Pale, warm and diaphoretic appearing to have just broken a fever. HEENT: Normocephalic, eyes with pupils equal and reactive light symmetrically, extraocular movement intact and sclera anicteric. Oral mucosa with pink moist mucosa. Neck: Supple without JVD. Lungs: Fair aeration, clear to auscultation and percussion. Back: Kyphotic with no CVA tenderness. Decreased range of motion. Heart: Regular rate and rhythm with quite systolic murmur left sternal border variable with inspiration. No gallops or rubs. Breast: Exam deferred. Abdomen: Obese contour, soft with no focalizing tenderness or guarding. No palpable hepatosplenomegaly. Bowel sounds positive all quadrants. Genitalia/rectal: Exam deferred. Extremities: Without clubbing, cyanosis or edema with diffuse bony osteoarthritic changes. Neuro: No focalizing motor deficits, cranial nerves II through XII grossly intact except for decreased hearing acuity, no tremors. Psych: Flattened affect with depressed mood at the time of visit the patient. Remote memory intact. Recent memory may have some deficits. Patient is a poor historian. Objective Objective Clinical Data: Abnormal lab results 12/18/19 12/18/19 12/18/19 Range/Units 15:35 15:35 17:00 WBC 11.64 H (4.4-10.8) k/cumm RBC (4.00-5.20) m/cumm Hgb (12.0-15.5) g/dL MCV 97.0 H (80-95) fL Absolute Neutrophils 10.20 H (1.2-6.7) k/cumm Absolute Lymphocytes 0.44 L (1.2-3.4) k/cumm Absolute Monocytes 0.95 H (0.11-0.7) k/cumm BUN 27 H (7-18) mg/dL Creatinine 1.67 H (0.55-1.02) mg/dL Glucose 154 H (74-106) mg/dL Calcium (8.5-10.1) mg/dL AST (15-37) U/L C-Reactive Protein (0.0-0.3) mg/dL Albumin (3.4-5.0) g/dL Urine Protein 100 H (Negative) mg/dL Urine Blood Moderate H (Negative) Ur Leukocyte Esterase Large H (Negative) Urine WBC >50 H (0-5) HPF 12/19/19 12/19/19 Range/Units 06:28 06:28 WBC 12.78 H (4.4-10.8) k/cumm RBC 3.70 L (4.00-5.20) m/cumm Hgb 11.9 L D (12.0-15.5) g/dL MCV 98.4 H (80-95) fL Absolute Neutrophils (1.2-6.7) k/cumm Absolute Lymphocytes (1.2-3.4) k/cumm Absolute Monocytes (0.11-0.7) k/cumm BUN 25 H (7-18) mg/dL Creatinine 1.51 H (0.55-1.02) mg/dL Glucose 144 H (74-106) mg/dL Calcium 8.0 L (8.5-10.1) mg/dL AST 49 H (15-37) U/L C-Reactive Protein 17.05 H (0.0-0.3) mg/dL Albumin 2.7 L (3.4-5.0) g/dL Urine Protein (Negative) mg/dL Urine Blood (Negative) Ur Leukocyte Esterase (Negative) Urine WBC (0-5) HPF Vital Signs Temperature 37.4 C 12/19/19 07:30 Temperature Source Tympanic 05/24/20 07:30 Pulse 68 12/19/19 07:30 Pulse Rhythm Regular 12/19/19 08:00 Pulse 88 12/18/19 20:01 Respiratory Rate 20 12/19/19 07:30 Respiratory Effort Non-Labored 12/19/19 08:00 Respiratory Depth Normal 12/19/19 08:00 Respiratory Pattern Normal 12/19/19 08:00 Blood Pressure 118/74 12/19/19 07:30 Blood Pressure Mean 79 12/18/19 20:01 Blood Pressure Position Supine 12/18/19 15:15 Pulse Oximetry 98 12/19/19 07:30 Oxygen Delivery Method Room Air 12/19/19 07:30 Oxygen Flow Rate 0 12/19/19 07:30 Pain Level 0 12/19/19 02:50 Intake & Output 12/18/19 12/18/19 12/19/19 11:59 23:59 11:59 Intake Total 1664.583 / 8025.225 6981.500 / 1077.500 Output Total 750 / 750 Balance 1664.583 / 1664.583 327.500 / 327.500 Weight 75.296 kg Intake: IV 1314.583 / 1314.583 877.500 / 877.500 Oral 350 / 350 200 / 200 Output: Urine 750 / 750 Other: Urine Color Light Rose [place] Urine Appearance Hematuria Clear Comment placed in OR Alyssa colored urine, some small clots present. Laboratory Results WBC 12.78 k/cumm (4.4-10.8) H 12/19/19 06:28 RBC 3.70 m/cumm (4.00-5.20) L 12/19/19 06:28 Hgb 11.9 g/dL (12.0-15.5) L D 12/19/19 06:28 Hct 36.4 % (36.0-46.0) 12/19/19 06:28 MCV 98.4 fL (80-95) H 12/19/19 06:28 MCH 32.2 pg (27.0-33.0) 12/19/19 06:28 MCHC 32.7 g/dL (32.0-36.0) 12/19/19 06:28 RDW 13.7 % (11.7-14.6) 12/19/19 06:28 Plt Count 186 x1000/uL (130-400) 12/19/19 06:28 MPV 11.0 fL (8.0-11.0) 12/19/19 06:28 Immature Gran % 0.2 % 12/18/19 15:35 Neutrophils % 87.6 12/18/19 15:35 Lymphocytes % 3.8 12/18/19 15:35 Monocytes % 8.2 12/18/19 15:35 Eosinophils % 0.0 12/18/19 15:35 Basophils % 0.2 12/18/19 15:35 Absolute Neutrophils 10.20 k/cumm (1.2-6.7) H 12/18/19 15:35 Absolute Lymphocytes 0.44 k/cumm (1.2-3.4) L 12/18/19 15:35 Absolute Monocytes 0.95 k/cumm (0.11-0.7) H 12/18/19 15:35 Absolute Eosinophils 0.00 k/cumm (0.0-0.7) 12/18/19 15:35 Absolute Basophils 0.02 k/cumm (0.0-0.2) 12/18/19 15:35 Sodium 141 mmol/L (136-145) 12/19/19 06:28 Potassium 3.7 mmol/L (3.5-5.1) 12/19/19 06:28 Chloride 107 mmol/L (98-107) 12/19/19 06:28 Carbon Dioxide 24.5 mmol/L (21.0-32.0) 12/19/19 06:28 Anion Gap 9.5 mmol/L (3-11) 12/19/19 06:28 BUN 25 mg/dL (7-18) H 12/19/19 06:28 Creatinine 1.51 mg/dL (0.55-1.02) H 12/19/19 06:28 Estimated GFR/1.73 m2 33.33 (mL/min/1.73m2) 12/19/19 06:28 Glucose 144 mg/dL (74-106) H 12/19/19 06:28 Calcium 8.0 mg/dL (8.5-10.1) L 12/19/19 06:28 Total Bilirubin 0.3 mg/dL (0.2-1.0) 12/19/19 06:28 AST 49 U/L (15-37) H 12/19/19 06:28 ALT 44 U/L (14-59) 12/19/19 06:28 Alkaline Phosphatase 70 U/L (46-116) 12/19/19 06:28 C-Reactive Protein 17.05 mg/dL (0.0-0.3) H 12/19/19 06:28 Total Protein 6.5 g/dL (6.4-8.2) 12/19/19 06:28 Albumin 2.7 g/dL (3.4-5.0) L 12/19/19 06:28 Procalcitonin 35.8 ng/mL 12/19/19 06:28 TSH 2.74 uIU/mL (0.36-3.74) 12/18/19 15:30 Urine Color Yellow (Yellow) 12/18/19 17:00 Urine Clarity Clear (Clear) 12/18/19 17:00 Urine pH 7.5 (5-8) 12/18/19 17:[address] 1.020 (1.005-1.025) 12/18/19 17:00 Urine Protein 100 mg/dL (Negative) H 12/18/19 17:00 Urine Ketones Negative mg/dL (Negative) 12/18/19 17:00 Urine Blood Moderate (Negative) H 12/18/19 17:00 Urine Nitrite Negative (Negative) 12/18/19 17:00 Urine Bilirubin Negative (Negative) 12/18/19 17:00 Urine Urobilinogen 0.2 EU/dL (Up TO 0.2) 12/18/19 17:00 Ur Leukocyte Esterase Large (Negative) H 12/18/19 17:00 Urine RBC Negative HPF (0-2) 12/18/19 17:00 Urine WBC >50 HPF (0-5) H 12/18/19 17:00 Ur Epithelial Cells Negative HPF (Negative) 12/18/19 17:00 Urine Crystals Negative HPF (Negative) 12/18/19 17:00 Urine Bacteria Negative HPF (Negative) 12/18/19 17:00 Urine Mucus Negative (Negative) 12/18/19 17:00 Urine Other Few renal (Negative) 12/18/19 17:00 Ur Culture Indicated? Yes 12/18/19 17:00 Urine Glucose Negative mg/dL (Negative) 12/18/19 17:00
--- NOTE | 2019-12-19 11:58 | PDOC.CMIN ---
- If Service Date Differs Date of service: 12/19/19 Time of Service: 11:58 Care Management Initial Assess REASON FOR HOSPITALIZATION:: Obstructing ureteral stone on the right with hydronephrosis and possible pyelonephritis. PAST MEDICAL HISTORY/PAST SURGICAL HISTORY:: CAD (coronary artery disease), [place] coronary artery (Acute). Depression (Chronic). GERD (gastroesophageal reflux disease) (Chronic). Glaucoma (Chronic). HTN (hypertension) (Chronic). Hyperlipidemia (Acute). Hypothyroid (Chronic). OAB (overactive bladder) (Acute). Osteoarthritis (Chronic) PREVIOUS FUNCTIONAL STATUS/SOCIAL/FAMILY SUPPORTS:: Charity lives at home in [place], [place] her daughter Kristy is her primary support person. Charity's spouse October 2016. Charity can be forgetful per her daughters report. She has difficulty managing her own medications. Charity does continue to drive however over the past three weeks she has driven much less due to blind spots in her eyes. She had a workup by her primary care over the last thirty days including carotid ultra sound, head CT, and Echo all per report negitive. She has a cardiology consult pending with . Her primary care is at [facility] and her primary is JOHNY Elliott. CURRENT FUNCTIONAL STATUS:: Charity is sitting up in bed she is alert and engaged. She is confused at times per her daugther this is her baseline. CM contacted her daughter and reviewed home and supports. Charity is pretty independent. Her daughter states she has difficulty with her medications at times. Recently she found that she was taking 225mg of Venlafaxine and she was only support to be taking 75 mg. She also was just recently started on Lisinopril for HTN by the primary care. ADVANCE DIRECTIVES:: None on file Kristy states she has a copy however would like Charity to see for palliative care and compelte a COLST or new Advance Directive with her. CM will request consult. Has patient been provided with information about the portal?: Yes Did the patient sign up for the portal?: No CODE STATUS:: Full Code INSURANCE COVERAGE / FINANCIAL ISSUES:: [employer], Medicaid, [employer] CURRENT HOME/COMMUNITY SERVICES/EQUIPMENT:: No current services, Charity has the support of her daughter at home. PRIMARY CARE PHYSICIAN:: Maximilian Elliott NP at [facility] [phone] POTENTIAL DISCHARGE NEEDS:: Follow up with [facility] and urology as directed. PATIENT/FAMILY EDUCATION NEEDS:: Discharge education, limitations and follow up plan of care including ask me three. ANTICIPATED BARRIERS TO DISCHARGE:: No anticipated barriers identified. TRANSPORTATION:: Via private car with daughter at time of discharge. PLAN:: Charity is receiving IV abx, for positive blood cultures, status post right uretral stent placement on 12/18/19 by . Anticipate she will be discharged home when medically ready with continue support by her daughter and family. CM to continue to assess for ongoing discharge needs and services.
--- NOTE | 2019-12-19 13:35 | PHA.REVIEW ---
Pharmacy Admission Review - Admission Clinical Review (Last Updated 12/19/19 @ 00:18 by Grover Castro) Esophageal abnormality (Acute) DVT prophylaxis (Acute) Hyperlipidemia (Acute) Sepsis syndrome (Acute) UTI (urinary tract infection) (Acute) Ureteral calculus (Acute) ibuprofen Adverse Reaction (Intermediate, Unverified 12/18/19 15:19) abd pain Height 5 ft 3 in Weight 75.296 kg - Renal Dosing Renal Dosing: BUN 25 mg/dL (7-18) H 12/19/19 06:28 Creatinine 1.51 mg/dL (0.55-1.02) H 12/19/19 06:28 Medications needing adjustments: Reviewed (crcl ~25ml/min) - Anticoagulation Anticoagulation: Hgb 11.9 g/dL (12.0-15.5) L D 12/19/19 06:28 Hct 36.4 % (36.0-46.0) 12/19/19 06:28 Plt Count 186 x1000/uL (130-400) 12/19/19 06:28 Creatinine 1.51 mg/dL (0.55-1.02) H 12/19/19 06:28 DVT Prohphylaxis: Reviewed Medications: Heparin Therapeutic Anticoagulation: N/A - Opiate Usage Scheduled Bowel Reg ordered if on Opiates?: No - Relevant Labs Sodium 141 mmol/L (136-145) 12/19/19 06:28 Potassium 3.7 mmol/L (3.5-5.1) 12/19/19 06:28 Chloride 107 mmol/L (98-107) 12/19/19 06:28 C-Reactive Protein 17.05 mg/dL (0.0-0.3) H 12/19/19 06:28 Electrolytes, C-Reactive P, ESR: Reviewed - DM Control DM Control: Glucose 144 mg/dL (74-106) H 12/19/19 06:28 - BP Control BP Control: Blood Pressure 120/71 Blood Pressure 118/74 Blood Pressure 104/67 If elevated: N/A - IV to PO Switch IV Medications: Reviewed (iv antibiotics, IVF) - Home Meds Home Med List reviewed: Reviewed - Current meds Current Medication Order Review: Intervened (from home med rx list venlafaxine order updated to the xr formulation , ceftriaxone order for 2 gram q12h clarified and changed to q24h) - Comments Comments/Follow Ups: UTI. septic from kidney stone, surgery last night. repeat BC ordered for tomorrow
[2019-12-19] MEDS: Acetaminophen 325 MG TAB 650 MG PO ×2 (15:24→20:04)
[2019-12-19] MEDS: cefTRIAXone 2 GM/50 ML BAG IVPB (20:14)
[2019-12-19] MEDS: Polyethylene Glycol 3350 17 GM PACKET PO (20:15)
[2019-12-19] MEDS: Simvastatin 20 MG TAB PO (20:15)
[2019-12-19] MEDS: Oxybutynin-CR 5 MG TABCR PO (20:16)
[2019-12-19 22:44] LABS: COVID-19 RT-PCR UVMMC Result Negative (Negative)
[2019-12-19] MEDS: Acetaminophen 500 MG TAB 1000 MG PO (23:42)
[2019-12-20 04:05] VITALS: BP 121/68; PULSE 60; RESP 17; TEMP 37.5; O2SAT 96
[2019-12-20] MEDS: Heparin 5,000 UNITS/ML VIAL 5000 UNITS SC ×3 (05:36→21:02)
[2019-12-20] MEDS: Levothyroxine 50 MCG TAB PO (05:36)
[2019-12-20] MEDS: Normal Saline 1,000 ML 100 ML IV ×2 (05:40→17:33)
[2019-12-20 06:05] LABS: Abs Immature Grans 0.02 k/cumm (0.0-0.09); Absolute Basophil Count 0.01 k/cumm (0.0-0.2); Absolute Eosinophil Count 0.05 k/cumm (0.0-0.7); Absolute Lymphocyte Count 0.51 k/cumm (1.2-3.4); Absolute Monocyte Count 0.69 k/cumm (0.11-0.7); Absolute Neutrophil Count 6.55 k/cumm (1.2-6.7); Basophils % 0.1; Eosinophils % 0.6; HGB 11.3 g/dL (12.0-15.5); Immature Grans % 0.3 %; Lymphocytes % 6.5; Mean Corp. HGB Concentration 33.2 g/dL (32.0-36.0); Mean Corpuscular Hemoglobin 32.4 pg (27.0-33.0); Mean Corpuscular Volume 97.4 fL (80-95); Monocytes % 8.8; Neutrophils % 83.7; Platelet Count 160 x1000/uL (130-400); RBC 3.49 m/cumm (4.00-5.20); RBC Distribution Width 13.5 % (11.7-14.6); White Blood Cell Count 7.83 k/cumm (4.4-10.8)
[2019-12-20 06:17] LABS: Anion Gap 6.8 mmol/L (3-11); BUN 19 mg/dL (7-18); CO2 25.2 mmol/L (21.0-32.0); CREATININE 1.23 mg/dL (0.55-1.02); Calcium 8.1 mg/dL (8.5-10.1); Chloride 107 mmol/L (98-107); Estimated GFR 42.23 (mL/min/1.73m2); Glucose 127 mg/dL (74-106); Magnesium 1.7 mg/dL (1.8-2.4); Potassium 3.7 mmol/L (3.5-5.1); Sodium 139 mmol/L (136-145)
[2019-12-20 07:21] VITALS: BP 136/76; PULSE 61; RESP 17; TEMP 36.1; O2SAT 95
[2019-12-20] MEDS: Celecoxib 200 MG CAP PO (08:15)
[2019-12-20] MEDS: Aspirin 81 MG CHEW PO (08:15)
[2019-12-20] MEDS: Multivitamin TAB 1 TAB PO (08:15)
[2019-12-20] MEDS: Thiamine 100 MG TAB PO (08:15)
[2019-12-20] MEDS: Folic Acid 1 MG TAB PO (08:15)
[2019-12-20] MEDS: Venlafaxine 37.5 MG CAPCR 75 MG PO (08:15)
[2019-12-20] MEDS: Omeprazole 20 MG CAPCR PO (08:15)
[2019-12-20] MEDS: Tamsulosin 0.4 MG CAPCR PO (08:15)
--- NOTE | 2019-12-20 09:26 | CMPROGNOTE_ITS ---
- If Service Date Differs Date of service: 12/20/19 Time of Service: 09:26 Care Management Progress Note S/O: Charity was reviewed at interdisciplinary rounds. Per provider, additional records have been requested regarding her previous esophegeal dilations. She awaits an echo, as well as a palliative care consult, which was faxed to the palliative office by CM. Charity was sleeping when CM attempted to meet with her. As her plan has not changed, CM did not disturb her. CM will continue to follow. A: Charity is a 79 year old female admitted to [facility] on 12/18/19 for Obstructing ureteral stone on the right with hydronephrosis and possible pyelonephritis. P: Anticipate Charity will return home with continued support from her daughter and family once medically cleared. Evaluations needed to determine additional support/services upon discharge. She will be transported by family via private vehicle, when ready. She will follow up with her PCP, and Urology, as recommended. CM will continue to follow and support discharge planning considerations.
[2019-12-20] MEDS: MAGNESIUM SULFATE 2 GM/50 ML BAG IVPB (09:41)
--- NOTE | 2019-12-20 10:03 | PGE_ITS ---
Date of Service Date of service: 12/20/19 Time of Service: 10:03 Assessment and Plan Assessment and plan (1) UTI (urinary tract infection): Start date: 12/20/19 Start time: 10:12 Status: Acute Assessment and plan: Pain is improved. Blood cultures growing gram negative chavo bacteria. Febrile over night no leukocytosis. urine cx with gram negative rods Cont ceftriaxone 2 gm q 24 hours. Echo for Friday d/ hol weekend Urology to follow patient. Continue whitaker Qualifiers: Urinary tract infection type: acute pyelonephritis Qualified Code(s): N10 - Acute pyelonephritis (2) Ureteral calculus: Start date: 12/20/19 Start time: 10:20 Status: Acute Assessment and plan: Radiology no history of renal stones in the past but has chronic hydronephrosis with evidence of some scarring on the left. She was treated acutely by Dr. Holman the urologist in consultation and he will continue to follow. initiate IV hydration of the patient doing well with oral hydration. continue Flomax. (3) Esophageal abnormality: Start date: 12/20/19 Start time: 10:20 Status: Acute Assessment and plan: Currently on reglan, possible dismotility, requesting charts from [facility], states she thought esophegeal dilation last month, however unsure. Await records. As long as she drinks slow she is able to swallow ok. Possible surgery consult for dilitation (4) Hyperlipidemia: Start date: 12/20/19 Start time: 10:22 Status: Acute Assessment and plan: Continue simivastitin (5) HTN (hypertension): Start date: 12/20/19 Start time: 10:23 Status: Chronic Assessment and plan: Elevated upon admission, likely from pain, normotensive today. Hold lisinopril at this time due to possible DACIA, unsure without previous labs but given severity of UTI with pyleo likely. Will monitor bp and consider alternatives. BUN and creatinine improving. Continue to monitor. (6) DACIA (acute kidney injury): Start date: 12/20/19 Start time: 10:24 Status: Acute Assessment and plan: In setting of pyleo. Improving continue to monitor. (7) Hypothyroid: Start date: 12/20/19 Start time: 10:25 Status: Chronic Assessment and plan: continue levothyroxine (8) DVT prophylaxis: Start date: 12/20/19 Start time: 10:25 Status: Acute Assessment and plan: Heparin subcu. Above case discussed with Dr. Hu who is in agreement. Subjective Subjective Patient reports: no new complaints Interval history since last seen: States she is feeling better. Sitting up in chair. Wants to go home. Catheter in place. Denies CP, SOB, N/V/D. Exam Const General: cooperative and healthy appearing Nutritional Appearance: overweight Orientation: alert, awake and oriented x3 Eyes Pupils: PERRL EOM: EOM intact bilaterally Neck Thyroid: thyroid normal Resp Effort & Inspection: normal respiratory effort and able to speak in complete sentences Auscultation: clear to auscultation bilaterally Cardio Jugular venous pressure: no JVD Rate: regular rate Rhythm: regular rhythm Heart Sounds: S1 normal and S2 normal GI Inspection: normal to inspection Palpation: soft and no hepatosplenomegaly Auscultation: normal bowel sounds Skin General skin exam: no rashes or lesions noted Neuro General: patient alert, patient awake and patient oriented x3 Extrem General: normal to inspection, full ROM and no clubbing, cyanosis or edema Objective Objective Clinical Data: Abnormal lab results 12/20/19 12/20/19 Range/Units 05:30 05:30 RBC 3.49 L (4.00-5.20) m/cumm Hgb 11.3 L (12.0-15.5) g/dL Hct 34.0 L (36.0-46.0) % MCV 97.4 H (80-95) fL Absolute Lymphocytes 0.51 L (1.2-3.4) k/cumm BUN 19 H D (7-18) mg/dL Creatinine 1.23 H (0.55-1.02) mg/dL Glucose 127 H (74-106) mg/dL Calcium 8.1 L (8.5-10.1) mg/dL Magnesium 1.7 L (1.8-2.4) mg/dL Vital Signs Temperature 36.1 C L 12/20/19 07:21 Temperature Source Tympanic 12/20/19 07:21 Pulse 61 12/20/19 07:21 Pulse Rhythm Regular 12/20/19 05:35 Pulse 88 12/18/19 20:01 Respiratory Rate 17 12/20/19 07:21 Respiratory Effort Non-Labored 12/20/19 05:35 Respiratory Depth Normal 12/20/19 05:35 Respiratory Pattern Normal 12/20/19 05:35 Blood Pressure 136/76 12/20/19 07:21 Blood Pressure Mean 79 12/18/19 20:01 Blood Pressure Position Supine 12/18/19 15:15 Pulse Oximetry 95 12/20/19 07:21 Oxygen Delivery Method Room Air 12/20/19 07:21 Oxygen Flow Rate 0 12/20/19 07:21 Pain Level 0 12/20/19 07:21 Intake & Output 12/19/19 12/19/19 12/20/19 11:59 23:59 11:59 Intake Total 1077.500 / 2097.500 1020 / 2097.500 798.333 / 798.333 Output Total 750 / 1450 700 / 1450 450 / 450 Balance 327.500 / 647.500 320 / 647.500 348.333 / 348.333 Weight 79.3 kg Intake: IV 877.500 / 5684.356 4647 / 1897.500 798.333 / 798.333 Oral 200 / 200 Output: Urine 750 / 1450 700 / 1450 450 / 450 Other: Urine Color [place] Yellow [place] Rose Urine Appearance Clear Clear Clear Comment Alyssa colored urine, some small clots present. Laboratory Results WBC 7.83 k/cumm (4.4-10.8) D 12/20/19 05:30 RBC 3.49 m/cumm (4.00-5.20) L 12/20/19 05:30 Hgb 11.3 g/dL (12.0-15.5) L 12/20/19 05:30 Hct 34.0 % (36.0-46.0) L 12/20/19 05:30 MCV 97.4 fL (80-95) H 12/20/19 05:30 MCH 32.4 pg (27.0-33.0) 12/20/19 05:30 MCHC 33.2 g/dL (32.0-36.0) 12/20/19 05:30 RDW 13.5 % (11.7-14.6) 12/20/19 05:30 Plt Count 160 x1000/uL (130-400) 12/20/19 05:30 MPV 11.0 fL (8.0-11.0) 12/20/19 05:30 Immature Gran % 0.3 % 12/20/19 05:30 Neutrophils % 83.7 12/20/19 05:30 Lymphocytes % 6.5 12/20/19 05:30 Monocytes % 8.8 12/20/19 05:30 Eosinophils % 0.6 12/20/19 05:30 Basophils % 0.1 12/20/19 05:30 Absolute Neutrophils 6.55 k/cumm (1.2-6.7) 12/20/19 05:30 Absolute Lymphocytes 0.51 k/cumm (1.2-3.4) L 12/20/19 05:30 Absolute Monocytes 0.69 k/cumm (0.11-0.7) 12/20/19 05:30 Absolute Eosinophils 0.05 k/cumm (0.0-0.7) 12/20/19 05:30 Absolute Basophils 0.01 k/cumm (0.0-0.2) 12/20/19 05:30 Sodium 139 mmol/L (136-145) 12/20/19 05:30 Potassium 3.7 mmol/L (3.5-5.1) 12/20/19 05:30 Chloride 107 mmol/L (98-107) 12/20/19 05:30 Carbon Dioxide 25.2 mmol/L (21.0-32.0) 12/20/19 05:30 Anion Gap 6.8 mmol/L (3-11) 12/20/19 05:30 BUN 19 mg/dL (7-18) H D 12/20/19 05:30 Creatinine 1.23 mg/dL (0.55-1.02) H 12/20/19 05:30 Estimated GFR/1.73 m2 42.23 (mL/min/1.73m2) 12/20/19 05:30 Glucose 127 mg/dL (74-106) H 12/20/19 05:30 Calcium 8.1 mg/dL (8.5-10.1) L 12/20/19 05:30 Magnesium 1.7 mg/dL (1.8-2.4) L 12/20/19 05:30 Total Bilirubin 0.3 mg/dL (0.2-1.0) 12/19/19 06:28 AST 49 U/L (15-37) H 12/19/19 06:28 ALT 44 U/L (14-59) 12/19/19 06:28 Alkaline Phosphatase 70 U/L (46-116) 12/19/19 06:28 C-Reactive Protein 17.05 mg/dL (0.0-0.3) H 12/19/19 06:28 Total Protein 6.5 g/dL (6.4-8.2) 12/19/19 06:28 Albumin 2.7 g/dL (3.4-5.0) L 12/19/19 06:28 Procalcitonin 35.8 ng/mL 12/19/19 06:28 TSH 2.74 uIU/mL (0.36-3.74) 12/18/19 15:30 Urine Color Yellow (Yellow) 12/18/19 17:00 Urine Clarity Clear (Clear) 12/18/19 17:00 Urine pH 7.5 (5-8) 12/18/19 17:00 Ur Specific [place] 1.020 (1.005-1.025) 12/18/19 17:00 Urine Protein 100 mg/dL (Negative) H 12/18/19 17:00 Urine Ketones Negative mg/dL (Negative) 12/18/19 17:00 Urine Blood Moderate (Negative) H 12/18/19 17:00 Urine Nitrite Negative (Negative) 12/18/19 17:00 Urine Bilirubin Negative (Negative) 12/18/19 17:00 Urine Urobilinogen 0.2 EU/dL (Up TO 0.2) 12/18/19 17:00 Ur Leukocyte Esterase Large (Negative) H 12/18/19 17:00 Urine RBC Negative HPF (0-2) 12/18/19 17:00 Urine WBC >50 HPF (0-5) H 12/18/19 17:00 Ur Epithelial Cells Negative HPF (Negative) 12/18/19 17:00 Urine Crystals Negative HPF (Negative) 12/18/19 17:00 Urine Bacteria Negative HPF (Negative) 12/18/19 17:00 Urine Mucus Negative (Negative) 12/18/19 17:00 Urine Other Few renal (Negative) 12/18/19 17:00 Ur Culture Indicated? Yes 12/18/19 17:00 Urine Glucose Negative mg/dL (Negative) 12/18/19 17:00 Salicylates Cancelled 12/20/19 09:14 COVID-19 PCR Negative (Negative) 12/18/19 19:46 Nasopharyn COVID-19 PCR Not Applicable 12/18/19 19:46 Ref Test Perform Site [facility] lab 12/18/19 19:46
[2019-12-20] MEDS: Metoclopramide 10 MG TAB PO (10:11)
[2019-12-20 11:23] VITALS: BP 131/82; PULSE 64; RESP 18; TEMP 37.5; O2SAT 98
[2019-12-20 16:30] VITALS: BP 138/81; PULSE 57; RESP 18; TEMP 36.7; O2SAT 97
[2019-12-20] MEDS: Acetaminophen 325 MG TAB 650 MG PO (20:38)
[2019-12-20] MEDS: cefTRIAXone 2 GM/50 ML BAG IVPB (20:39)
[2019-12-20] MEDS: Normal Saline Flush 10 ML SYR IVP (20:39)
[2019-12-20 20:49] VITALS: BP 174/84; PULSE 71; RESP 16; TEMP 36.7; O2SAT 97
[2019-12-20] MEDS: Simvastatin 20 MG TAB PO (21:02)
[2019-12-20] MEDS: Oxybutynin-CR 5 MG TABCR PO (21:02)
[2019-12-20 23:42] VITALS: BP 148/72; PULSE 65; RESP 19; TEMP 37.2; O2SAT 98
[2019-12-21] VITALS (9 sets, daily range): BP systolic 130–179; BP diastolic 74–89; PULSE 64–76; RESP 16–18; TEMP 36.7–37.7; O2SAT 94–99
[2019-12-21] MEDS: Normal Saline 1,000 ML 100 ML IV (02:07)
[2019-12-21] MEDS: Levothyroxine 50 MCG TAB PO (05:43)
[2019-12-21] MEDS: Heparin 5,000 UNITS/ML VIAL 5000 UNITS SC ×3 (05:44→22:46)
[2019-12-21] MEDS: Acetaminophen 325 MG TAB 650 MG PO ×2 (05:44→18:00)
--- NOTE | 2019-12-21 06:47 | PGE_ITS ---
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 Struvite stones would also explain why the patient has had recurrent UTI s over the past 2 years or so. I would not be surprised if each of her previous cultures also grew Proteus. Because this type of stone harbors bacteria, I would prefer to wait until the end of her antibiotic course before attempting any type of stone manipulation. Given the size and location of the stones, I would propose flexible ureteroscopy with holmium laser lithotripsy. I would expect that the patient would need a general anesthetic and that the procedure would take 2 hours or so. The patient's daughter describes the patient having some issues with temporary loss of vision in the past month or so. Apparently, she has had a head CT, carotid ultrasound and echocardiogram up in [facility]. There was talk of doing a stress test. The patient was referred to a optics manufacturing technician in [place] but the appointment has not yet been accomplished. We will attempt to get a hold of her records. We will talk to our anesthesia providers to gauge their level of comfort providing a general anesthetic for this patient and whether or not she will need additional testing prior to a longer, elective surgery. Subjective Subjective Interval history since last seen: She tells me she is feeling much better than on admission. She no longer has flank pain. She has been able to ambulate but feels a bit weak when she gets back to her room. Exam Narrative Exam Narrative: She does not appear septic or toxic Her vital signs are documented elsewhere She is awake and alert Objective Objective Clinical Data: Vital Signs Temperature 37.5 C 12/21/19 05:42 Temperature Source Temporal Artery Scan 12/21/19 05:42 Pulse 72 12/21/19 05:42 Pulse Rhythm Regular 12/21/19 05:46 Pulse 88 12/18/19 20:01 Respiratory Rate 18 12/21/19 05:42 Respiratory Effort Non-Labored 12/21/19 05:46 Respiratory Depth Normal 12/21/19 05:46 Respiratory Pattern Normal 12/21/19 05:46 Blood Pressure 179/81 H 12/21/19 05:42 Blood Pressure Mean 79 12/18/19 20:01 Blood Pressure Position Supine 12/18/19 15:15 Pulse Oximetry 96 12/21/19 05:42 Oxygen Delivery Method Room Air 12/21/19 05:42 Oxygen Flow Rate 0 12/21/19 05:42 Pain Level 5 12/21/19 05:42 Comment 12/21/19 05:42 Intake & Output 12/20/19 12/20/19 12/21/19 11:59 23:59 11:59 Intake Total 1038.333 / 2328.333 1290 / 2328.333 856.667 / 856.667 Output Total 450 / 1900 1450 / 1900 1150 / 1150 Balance 588.333 / 428.333 -160 / 428.333 -293.333 / -293.333 Weight 79.3 kg Intake: IV 798.333 / 8623.387 3523 / 1848.333 856.667 / 856.667 Oral 240 / 480 240 / 480 Output: Urine 450 / 1900 1450 / 1900 1150 / 1150 Other: Urine Color Light Rose Light Rose Light Rose Urine Appearance Clear Clear Cloudy Stool Size Copious Large Stool Characteristics Soft Soft Formed Brown Brown Laboratory Results WBC 7.83 k/cumm (4.4-10.8) D 12/20/19 05:30 RBC 3.49 m/cumm (4.00-5.20) L 12/20/19 05:30 Hgb 11.3 g/dL (12.0-15.5) L 12/20/19 05:30 Hct 34.0 % (36.0-46.0) L 12/20/19 05:30 MCV 97.4 fL (80-95) H 12/20/19 05:30 MCH 32.4 pg (27.0-33.0) 12/20/19 05:30 MCHC 33.2 g/dL (32.0-36.0) 12/20/19 05:30 RDW 13.5 % (11.7-14.6) 12/20/19 05:30 Plt Count 160 x1000/uL (130-400) 12/20/19 05:30 MPV 11.0 fL (8.0-11.0) 12/20/19 05:30 Immature Gran % 0.3 % 12/20/19 05:30 Neutrophils % 83.7 12/20/19 05:30 Lymphocytes % 6.5 12/20/19 05:30 Monocytes % 8.8 12/20/19 05:30 Eosinophils % 0.6 12/20/19 05:30 Basophils % 0.1 12/20/19 05:30 Absolute Neutrophils 6.55 k/cumm (1.2-6.7) 12/20/19 05:30 Absolute Lymphocytes 0.51 k/cumm (1.2-3.4) L 12/20/19 05:30 Absolute Monocytes 0.69 k/cumm (0.11-0.7) 12/20/19 05:30 Absolute Eosinophils 0.05 k/cumm (0.0-0.7) 12/20/19 05:30 Absolute Basophils 0.01 k/cumm (0.0-0.2) 12/20/19 05:30 Sodium 139 mmol/L (136-145) 12/20/19 05:30 Potassium 3.7 mmol/L (3.5-5.1) 12/20/19 05:30 Chloride 107 mmol/L (98-107) 12/20/19 05:30 Carbon Dioxide 25.2 mmol/L (21.0-32.0) 12/20/19 05:30 Anion Gap 6.8 mmol/L (3-11) 12/20/19 05:30 BUN 19 mg/dL (7-18) H D 12/20/19 05:30 Creatinine 1.23 mg/dL (0.55-1.02) H 12/20/19 05:30 Estimated GFR/1.73 m2 42.23 (mL/min/1.73m2) 12/20/19 05:30 Glucose 127 mg/dL (74-106) H 12/20/19 05:30 Calcium 8.1 mg/dL (8.5-10.1) L 12/20/19 05:30 Magnesium 1.7 mg/dL (1.8-2.4) L 12/20/19 05:30 Total Bilirubin 0.3 mg/dL (0.2-1.0) 12/19/19 06:28 AST 49 U/L (15-37) H 12/19/19 06:28 ALT 44 U/L (14-59) 12/19/19 06:28 Alkaline Phosphatase 70 U/L (46-116) 12/19/19 06:28 C-Reactive Protein 17.05 mg/dL (0.0-0.3) H 12/19/19 06:28 Total Protein 6.5 g/dL (6.4-8.2) 12/19/19 06:28 Albumin 2.7 g/dL (3.4-5.0) L 12/19/19 06:28 Procalcitonin 35.8 ng/mL 12/19/19 06:28 TSH 2.74 uIU/mL (0.36-3.74) 12/18/19 15:30 Urine Color Yellow (Yellow) 12/18/19 17:00 Urine Clarity Clear (Clear) 12/18/19 17:00 Urine pH 7.5 (5-8) 12/18/19 17:00 Ur Specific [place] 1.020 (1.005-1.025) 12/18/19 17:00 Urine Protein 100 mg/dL (Negative) H 12/18/19 17:00 Urine Ketones Negative mg/dL (Negative) 12/18/19 17:00 Urine Blood Moderate (Negative) H 12/18/19 17:00 Urine Nitrite Negative (Negative) 12/18/19 17:00 Urine Bilirubin Negative (Negative) 12/18/19 17:00 Urine Urobilinogen 0.2 EU/dL (Up TO 0.2) 12/18/19 17:00 Ur Leukocyte Esterase Large (Negative) H 12/18/19 17:00 Urine RBC Negative HPF (0-2) 12/18/19 17:00 Urine WBC >50 HPF (0-5) H 12/18/19 17:00 Ur Epithelial Cells Negative HPF (Negative) 12/18/19 17:00 Urine Crystals Negative HPF (Negative) 12/18/19 17:00 Urine Bacteria Negative HPF (Negative) 12/18/19 17:00 Urine Mucus Negative (Negative) 12/18/19 17:00 Urine Other Few renal (Negative) 12/18/19 17:00 Ur Culture Indicated? Yes 12/18/19 17:00 Urine Glucose Negative mg/dL (Negative) 12/18/19 17:00 Salicylates Cancelled 12/20/19 09:14 COVID-19 PCR Negative (Negative) 12/18/19 19:46 Nasopharyn COVID-19 PCR Not Applicable 12/18/19 19:46 Ref Test Perform Site [facility] lab 12/18/19 19:46
[2019-12-21 07:14] LABS: Abs Immature Grans 0.01 k/cumm (0.0-0.09); Absolute Basophil Count 0.01 k/cumm (0.0-0.2); Absolute Eosinophil Count 0.15 k/cumm (0.0-0.7); Absolute Lymphocyte Count 0.74 k/cumm (1.2-3.4); Absolute Neutrophil Count 5.14 k/cumm (1.2-6.7); Basophils % 0.1; Eosinophils % 2.2; HCT 34.8 % (36.0-46.0); HGB 11.3 g/dL (12.0-15.5); Immature Grans % 0.1 %; Mean Corp. HGB Concentration 32.5 g/dL (32.0-36.0); Mean Corpuscular Hemoglobin 31.3 pg (27.0-33.0); Mean Corpuscular Volume 96.4 fL (80-95); Mean Platelet Volume 11.6 fL (8.0-11.0); Monocytes % 10.4; Neutrophils % 76.2; Platelet Count 168 x1000/uL (130-400); RBC 3.61 m/cumm (4.00-5.20); RBC Distribution Width 13.5 % (11.7-14.6); White Blood Cell Count 6.75 k/cumm (4.4-10.8)
[2019-12-21 07:20] LABS: Anion Gap 6.6 mmol/L (3-11); BUN 14 mg/dL (7-18); CO2 26.4 mmol/L (21.0-32.0); CREATININE 1.09 mg/dL (0.55-1.02); Calcium 8.7 mg/dL (8.5-10.1); Chloride 104 mmol/L (98-107); Estimated GFR 48.55 (mL/min/1.73m2); Glucose 104 mg/dL (74-106); Magnesium 1.9 mg/dL (1.8-2.4); Potassium 3.8 mmol/L (3.5-5.1); Sodium 137 mmol/L (136-145)
[2019-12-21] MEDS: Celecoxib 200 MG CAP PO (09:05)
[2019-12-21] MEDS: Venlafaxine 37.5 MG CAPCR 75 MG PO (09:05)
[2019-12-21] MEDS: Aspirin 81 MG CHEW PO (09:05)
[2019-12-21] MEDS: Omeprazole 20 MG CAPCR PO (09:05)
[2019-12-21] MEDS: Multivitamin TAB 1 TAB PO (09:05)
[2019-12-21] MEDS: Folic Acid 1 MG TAB PO (09:06)
[2019-12-21] MEDS: Tamsulosin 0.4 MG CAPCR PO (09:06)
[2019-12-21] MEDS: Thiamine 100 MG TAB PO (09:06)
[2019-12-21] MEDS: Metoclopramide 10 MG TAB PO (09:06)
--- NOTE | 2019-12-21 09:30 | DI.US_ITS ---
APPROVED REPORT EXAM: Comprehensive 2D, Doppler, and color-flow Echocardiogram Patient Location: In-Patient Room/Bed: [facility] [employer] Manager: Kelly Downs RDCS (AE) Indications: Bacteremia Other Information Study Quality: Adequate Conclusion Left Ventricle : The left ventricle is normal size. The left ventricular systolic function is normal. The left ventricular ejection fraction is within the normal range. There is normal left ventricular wall thickness. There is normal LV segmental wall motion. The left ventricular diastolic function is normal. LVEF is 60%. Right Ventricle : The right ventricle is normal size. The right ventricular systolic function is norm al. The RVSP is 29.6mmHg. Atria : The left atrium size is normal. The right atrium size is normal. Valves: There are no hemodynamically significant valvular lesions. There is no evidence of valvular vegetation. Great Vessels : IVC is normal in size and collapses >50% with inspiration. There is no prior study available for comparison. Wall motion Left Ventricle The left ventricle is normal size. The left ventricular systolic function is normal. The left ventric ular ejection fraction is within the normal range. There is normal left ventricular wall thickness. T here is normal LV segmental wall motion. The left ventricular diastolic function is normal. There is no ventricular septal defect visualized. LVEF is 60%. Right Ventricle The right ventricle is normal size. The right ventricular systolic function is normal. The RVSP is 29 .6mmHg. Atria The left atrium size is normal. The right atrium size is normal. The interatrial septum is intact wit h no evidence for an atrial septal defect. Aortic Valve The Aortic valve is sclerotic. Aortic valve is trileaflet. There is no aortic valvular stenosis. Trac e aortic regurgitation. There is no aortic valvular vegetation. Mitral Valve There is mitral annular calcification. No evidence of mitral valve stenosis. Mild mitral regurgitatio n. There is no evidence of mitral valve vegetations. Tricuspid Valve The tricuspid valve is normal in structure. There is no tricuspid valve stenosis. Mild tricuspid regu rgitation. There is no tricuspid valve vegetations. Pulmonic Valve Pulmonic valve is not well visualized. There is no pulmonic valvular stenosis. Trace pulmonic regurgi tation. Great Vessels The aortic root is normal in size. The ascending aorta is mildly dilated. Aortic arch is not well vis ualized. IVC is normal in size and collapses >50% with inspiration. Pericardium There is no pericardial effusion. There is no pleural effusion. 2D Dimensions IVSD d PLAX 1.00 cm F: 0.6-1.0 LV Vol A2C d MOD 54.7 mL LVPW d PLAX 1.04 cm F: 0.6 - 1.0 LV Vol A4C d MOD 68.5 mL LVID d PLAX 4.45 cm F: 3.8 - 5.2 LA vol/ BSA A2C s A-L 16.4 mL/m2 LVDs 2.85 cm F: 2.2 - 3.5 LA vol/ BSA A4C s A-L 22.9 mL/m2 Ao Root d 2.24 cm F: 2.7 - 3.3 LA Vol/ BSA Biplane s A-L 19.5 mL/m2 RA Area A4C 14.13 cm2 LA Area A4C s MOD 15.44 cm2 RA Vol/ BSA A4C s A-L 19.2 mL/m2 LA Area A2C s MOD 12.94 cm2 Ao Asc Diam d 3.62 cm F: 2.3 - 3.1 LV EF A4C MOD 60.7 % LV EF Teichholz 64.4 % LV EF A2C MOD 63.7 % LVEF (Goldberg's) 62.60 % F: 54 - 74 LV EF Biplane MOD 62.6 % LV Volume 48.38 mL F: 46 - 106 SV 39.11 mL LV Volume Index 26.58 mL/m2 F: 29 - 61 SV Index 21.46 mL/m2 LV Vol Biplane MOD 62.5 mL FS 34.95 % M-Mode TAPSE 2.17 cm (M/F) >1.7 LV Diastology MV E' medial 0.097 (>0.07 m/s) E/A Ratio 1.0 LV E/e MED 9.50 (<14) MV E Vmax 0.92 (0.4-1.3 m/s) MV E' lateral 0.100 (>0.1 m/s) MV A Vmax 0.95 (0.4-1.3 m/s) LV E/e LAT 9.15 (<14) MV E/A Ratio 0.94 MV E/E' medial 9.52 MV E/E' lateral 9.17 Aortic Valve LVOT Area 2.81 cm2 AoV Area Vmax 2.47 cm2 LVOT Vmax 1.53 m/s AoV Area/ BSA (Vmax) 1.35 cm2/m2 LVOT Mean Jovon. 0.98 m/s AMILCAR Mean Jovon. 2.43 cm2 LVOT Peak Grad 9.4 mmHg AMILCAR Mean Jovon. Index 1.33 cm2/m2 LVOT Mean Grad 4.5 mmHg AR DT 2110 msec LVOT VTI 0.297 m AR PHT 612 msec LVOT Diam s 1.85 cm AoV Vmax 1.74 m/s Velocity Ratio 0.87 AoV Mean Jovon. 1.13 m/s AoV Peak Grad 12.2 mmHg LVOT SV 83.54 mL AoV Mean Grad 5.8 mmHg AoV VTI 0.316 m AoV Area VTI 2.64 cm2 AoV Area/ BSA (VTI) 1.45 cm/m2 Mitral Valve MV DT 188 (160-240 msec) MR PISA Radius 0.40 cm MV PHT 55 msec MR Aliasing Velocity 0.35 m/s MV Area PHT 4.04 cm2 MR PISA 1.02 cm2 Pulmonary Valve PV Vmax 1.26 (0.5-1.5 m/s) RVOT Peak Gr. 2.75 mmHg PV Peak Grad 6.4 mmHg RVOT Mean Gr. 1.45 mmHg PV Mean Grad 3.3 mmHg RVOT VTI 0.148 m PV VTI 0.228 m RVOT Vmax 0.83 m/s Tricuspid Valve TR Peak Grad 26.6 mmHg TR Vmax 2.58 m/s RA Pressure 3.00 mmHg RVSP (TR) 29.6 mmHg
--- NOTE | 2019-12-21 13:10 | PGE_ITS ---
Date of Service Date of service: 12/21/19 Time of Service: 13:10 Assessment and Plan Assessment and plan (1) UTI (urinary tract infection): Start date: 12/21/19 Start time: 13:23 Status: Acute Assessment and plan: Pain is improved. Blood cultures growing gram negative chavo bacteria. aFebrile over night no leukocytosis. urine cx with gram negative rods revealing proteus mirabilis sensitive to ceftrixone, second set blood cx with NGTD Cont ceftriaxone 2 gm q 24 hours per ID recommendations, receive 5 day course of IV antbx then recommend keflex x 1 week after stone retrieval. Unfortunately patient is forget full with taking medications and would benefit from a twice daily regimen. Will discuss with Dr. Holman. Also Option to keep on IV as well and place in swingbed until stone retrieval. Echo done 60% EF. no valvular lesions or vegetation Urology to follow patient. Continue whitaker Qualifiers: Urinary tract infection type: acute pyelonephritis Qualified Code(s): N10 - Acute pyelonephritis (2) Ureteral calculus: Start date: 12/21/19 Start time: 13:27 Status: Acute Assessment and plan: Radiology no history of renal stones in the past but has chronic hydronephrosis with evidence of some scarring on the left. She was treated acutely by Dr. Holman the urologist in consultation and he will continue to follow. initiate IV hydration of the patient doing well with oral hydration. continue Flomax. (3) Esophageal abnormality: Start date: 12/21/19 Start time: 13:27 Status: Acute Assessment and plan: Currently on reglan, possible dismotility, requesting charts from [facility], states she thought esophegeal dilation last month, however unsure. As long as she drinks slow she is able to swallow ok. Possible surgery consult for dilitation Speech to evaluate (4) Hyperlipidemia: Start date: 12/21/19 Start time: 13:28 Status: Acute Assessment and plan: Continue simivastitin (5) HTN (hypertension): Start date: 12/21/19 Start time: 13:28 Status: Chronic Assessment and plan: Elevated upon admission, likely from pain, normotensive today. Hold lisinopril at this time due to possible DACIA, unsure without previous labs but given severity of UTI with pyleo likely. Will monitor bp and consider alternatives. BUN and creatinine improving. Continue to monitor BP (6) DACIA (acute kidney injury): Start date: 12/21/19 Start time: 13:28 Status: Acute Assessment and plan: In setting of pyleo. Improving continue to monitor. (7) Hypothyroid: Start date: 12/21/19 Start time: 13:29 Status: Chronic Assessment and plan: continue levothyroxine (8) DVT prophylaxis: Start date: 12/21/19 Start time: 13:29 Status: Acute Assessment and plan: Heparin subcu. Above case discussed with Dr. Hu who is in agreement. Subjective Subjective Patient reports: feels better Interval history since last seen: Sitting up in chair doing well. Spoke with ID at [facility], recommends 5 days of IV ceftriaxone with oral of keflex up to 1 week after stone retrieval. Will speak with Dr. Holman regarding recommendations. Last day of IV for 5 day administration would be 12/22/2019. She is eating and drinking without difficulty. Denies CP, SOB, N/V/D. Exam Const General: cooperative and healthy appearing Nutritional Appearance: overweight Orientation: alert, awake and oriented x3 Eyes Pupils: PERRL EOM: EOM intact bilaterally Neck Thyroid: thyroid normal Resp Effort & Inspection: normal respiratory effort and able to speak in complete sentences Auscultation: clear to auscultation bilaterally Cardio Jugular venous pressure: no JVD Rate: regular rate Rhythm: regular rhythm Heart Sounds: S1 normal and S2 normal GI Inspection: normal to inspection Palpation: soft and no hepatosplenomegaly Auscultation: normal bowel sounds Skin General skin exam: no rashes or lesions noted Neuro General: patient alert, patient awake and patient oriented x3 Extrem General: normal to inspection, full ROM and no clubbing, cyanosis or edema Objective Objective Clinical Data: Abnormal lab results 12/21/19 12/21/19 Range/Units 06:05 06:05 RBC 3.61 L (4.00-5.20) m/cumm Hgb 11.3 L (12.0-15.5) g/dL Hct 34.8 L (36.0-46.0) % MCV 96.4 H (80-95) fL MPV 11.6 H (8.0-11.0) fL Absolute Lymphocytes 0.74 L (1.2-3.4) k/cumm Creatinine 1.09 H (0.55-1.02) mg/dL Vital Signs Temperature 36.7 C 12/21/19 11:32 Temperature Source Tympanic 12/21/19 11:32 Pulse 72 12/21/19 11:32 Pulse Rhythm Regular 12/21/19 05:46 Pulse 88 12/18/19 20:01 Respiratory Rate 17 12/21/19 11:32 Respiratory Effort Non-Labored 12/21/19 05:46 Respiratory Depth Normal 12/21/19 05:46 Respiratory Pattern Normal 12/21/19 05:46 Blood Pressure 130/84 12/21/19 11:32 Blood Pressure Mean 79 12/18/19 20:01 Blood Pressure Position Supine 12/18/19 15:15 Pulse Oximetry 98 12/21/19 11:32 Oxygen Delivery Method Room Air 12/21/19 11:32 Oxygen Flow Rate 0 12/21/19 11:32 Pain Level 0 12/21/19 11:32 Comment 12/21/19 05:42 Intake & Output 12/20/19 12/21/19 12/21/19 23:59 11:59 23:59 Intake Total 1530 / 2568.333 1546.667 / 1786.667 240 / 1786.667 Output Total 1450 / 1900 1150 / 1150 Balance 80 / 668.333 396.667 / 636.667 240 / 636.667 Weight 76.4 kg Intake: IV 1050 / 1848.333 856.667 / 856.667 Oral 480 / 720 690 / 930 240 / 930 Output: Urine 1450 / 1900 1150 / 1150 Other: Urine Color Light [place] Urine Appearance Clear Cloudy Stool Size Copious Large Stool Characteristics Soft Soft Formed Brown Brown Laboratory Results WBC 6.75 k/cumm (4.4-10.8) 12/21/19 06:05 RBC 3.61 m/cumm (4.00-5.20) L 12/21/19 06:05 Hgb 11.3 g/dL (12.0-15.5) L 12/21/19 06:05 Hct 34.8 % (36.0-46.0) L 12/21/19 06:05 MCV 96.4 fL (80-95) H 12/21/19 06:05 MCH 31.3 pg (27.0-33.0) 12/21/19 06:05 MCHC 32.5 g/dL (32.0-36.0) 12/21/19 06:05 RDW 13.5 % (11.7-14.6) 12/21/19 06:05 Plt Count 168 x1000/uL (130-400) 12/21/19 06:05 MPV 11.6 fL (8.0-11.0) H 12/21/19 06:05 Immature Gran % 0.1 % 12/21/19 06:05 Neutrophils % 76.2 12/21/19 06:05 Lymphocytes % 11.0 12/21/19 06:05 Monocytes % 10.4 12/21/19 06:05 Eosinophils % 2.2 12/21/19 06:05 Basophils % 0.1 12/21/19 06:05 Absolute Neutrophils 5.14 k/cumm (1.2-6.7) 12/21/19 06:05 Absolute Lymphocytes 0.74 k/cumm (1.2-3.4) L 12/21/19 06:05 Absolute Monocytes 0.70 k/cumm (0.11-0.7) 12/21/19 06:05 Absolute Eosinophils 0.15 k/cumm (0.0-0.7) 12/21/19 06:05 Absolute Basophils 0.01 k/cumm (0.0-0.2) 12/21/19 06:05 Sodium 137 mmol/L (136-145) 12/21/19 06:05 Potassium 3.8 mmol/L (3.5-5.1) 12/21/19 06:05 Chloride 104 mmol/L (98-107) 12/21/19 06:05 Carbon Dioxide 26.4 mmol/L (21.0-32.0) 12/21/19 06:05 Anion Gap 6.6 mmol/L (3-11) 12/21/19 06:05 BUN 14 mg/dL (7-18) 12/21/19 06:05 Creatinine 1.09 mg/dL (0.55-1.02) H 12/21/19 06:05 Estimated GFR/1.73 m2 48.55 (mL/min/1.73m2) 12/21/19 06:05 Glucose 104 mg/dL (74-106) 12/21/19 06:05 Calcium 8.7 mg/dL (8.5-10.1) 12/21/19 06:05 Magnesium 1.9 mg/dL (1.8-2.4) 12/21/19 06:05 Total Bilirubin 0.3 mg/dL (0.2-1.0) 12/19/19 06:28 AST 49 U/L (15-37) H 12/19/19 06:28 ALT 44 U/L (14-59) 12/19/19 06:28 Alkaline Phosphatase 70 U/L (46-116) 12/19/19 06:28 C-Reactive Protein 17.05 mg/dL (0.0-0.3) H 12/19/19 06:28 Total Protein 6.5 g/dL (6.4-8.2) 12/19/19 06:28 Albumin 2.7 g/dL (3.4-5.0) L 12/19/19 06:28 Procalcitonin 35.8 ng/mL 12/19/19 06:28 TSH 2.74 uIU/mL (0.36-3.74) 12/18/19 15:30 Urine Color Yellow (Yellow) 12/18/19 17:00 Urine Clarity Clear (Clear) 12/18/19 17:00 Urine pH 7.5 (5-8) 12/18/19 17:00 Ur Specific [place] 1.020 (1.005-1.025) 12/18/19 17:00 Urine Protein 100 mg/dL (Negative) H 12/18/19 17:00 Urine Ketones Negative mg/dL (Negative) 12/18/19 17:00 Urine Blood Moderate (Negative) H 12/18/19 17:00 Urine Nitrite Negative (Negative) 12/18/19 17:00 Urine Bilirubin Negative (Negative) 12/18/19 17:00 Urine Urobilinogen 0.2 EU/dL (Up TO 0.2) 12/18/19 17:00 Ur Leukocyte Esterase Large (Negative) H 12/18/19 17:00 Urine RBC Negative HPF (0-2) 12/18/19 17:00 Urine WBC >50 HPF (0-5) H 12/18/19 17:00 Ur Epithelial Cells Negative HPF (Negative) 12/18/19 17:00 Urine Crystals Negative HPF (Negative) 12/18/19 17:00 Urine Bacteria Negative HPF (Negative) 12/18/19 17:00 Urine Mucus Negative (Negative) 12/18/19 17:00 Urine Other Few renal (Negative) 12/18/19 17:00 Ur Culture Indicated? Yes 12/18/19 17:00 Urine Glucose Negative mg/dL (Negative) 12/18/19 17:00 Salicylates Cancelled 12/20/19 09:14 COVID-19 PCR Negative (Negative) 12/18/19 19:46 Nasopharyn COVID-19 PCR Not Applicable 12/18/19 19:46 Ref Test [facility] 12/18/19 19:46
--- NOTE | 2019-12-21 14:22 | PDOC.CMPRO ---
- If Service Date Differs Date of service: 12/21/19 Time of Service: 14:22 Care Management Progress Note S/O: Charity was sitting up in her chair when CM met with her. She reported that she is feeling better today. Per provider, Charity will need to finish her abx course prior to having the stone removed. She may be able to return home to complete oral abx vs SWB for IV abx. Charity reported that CM should talk to her daughter, Kristy when deciding on a plan of care, as she relies on her to assist with medical decisions. CM will continue to follow. A: Charity is a 79 year old female admitted to [facility] on 12/18/19 for Obstructing ureteral stone on the right with hydronephrosis and possible pyelonephritis. P: Anticipate Charity will return home with continued support from her daughter and family once medically cleared. Evaluations needed to determine additional support/services upon discharge. She will be transported by family via private vehicle, when ready. She will follow up with her PCP, and Urology, as recommended. CM will continue to follow and support discharge planning considerations.
--- NOTE | 2019-12-21 14:49 | TELEFU_ITS ---
Date of service: 12/21/19 Time of Service: 14:49 Nutritional Follow up NOTE: 79 year old female admitted with UTI, DACIA with esophageal abnormality leading to frequent coughing at meals. PMH: HTN, CAD, hyperlipidemia. VETERINARY MEDICINE DOCTOR consult pending. Met with Charity today, she appears well nourished, BMI indicates mild obesity, following Heart Healthy Diet with excellent intake (>75% of meals ), not at risk for nutritional decline at this time. Diet texture to be adjusted per VETERINARY MEDICINE DOCTOR recommendations. Time Spent in Nutritional Counseling and Treatment: 10 min spent face to face
[2019-12-21] MEDS: cefTRIAXone 2 GM/50 ML BAG IVPB (19:40)
[2019-12-21] MEDS: Normal Saline Flush 10 ML SYR IVP (19:41)
[2019-12-21] MEDS: Oxybutynin-CR 5 MG TABCR PO (22:46)
[2019-12-21] MEDS: Simvastatin 20 MG TAB PO (22:46)
[2019-12-22] VITALS (8 sets, daily range): BP systolic 161–190; BP diastolic 81–106; PULSE 38–96; RESP 18–19; TEMP 36.3–37.6; O2SAT 95–97
--- NOTE | 2019-12-22 | DI.MRI_ITS ---
CLINICAL HISTORY: CVA. TECHNIQUE: Multiplanar multisequence MRA of the brain was performed. IV Contrast: mL of Magnevist contrast administered. COMPARISON: None. FINDINGS: Carotid Arteries: Petrous: Normal. Cavernous: Normal. Cerebral: Normal. Middle Cerebral Arteries: Right: No aneurysm or significant stenosis. Left: No aneurysm or significant stenosis. Anterior Cerebral Arteries: Right: No aneurysm or significant stenosis. Left: No aneurysm or significant stenosis. Vertebral Arteries: Right: No aneurysm or significant stenosis. Left: No aneurysm or significant stenosis. . Basilar Artery: No aneurysm or significant stenosis. Small Vessels: No evidence of beading. IMPRESSION: Normal MRA examination of the [place]. DATA REPOSITORY:
--- NOTE | 2019-12-22 | DI.MRI_ITS ---
EXAM: MR ANGIO NECK WO CLINICAL HISTORY: CVA. TECHNIQUE: 2D and 3D time of flight sequences were performed. COMPARISON: No exams were available for comparison FINDINGS: Common Carotid: There is artifact at the proximal common carotid arteries. Right: Normal. Left: Normal. External Carotid: Right: Normal. Left: Normal. Internal Carotid: There is tortuosity of the distal internal carotid arteries and some flow artifact. No significant plaque is identified. Vertebral Artery: Right: Normal. Left: Normal. IMPRESSION: Somewhat limited exam due to pulsation artifact and vascular tortuosity. No significant plaque or st enosis is visible.. DATA REPOSITORY:
--- NOTE | 2019-12-22 | DI.MRI_ITS ---
EXAM: MR BRAIN WO CLINICAL HISTORY: CVA. TECHNIQUE: Multiplanar multisequence MRI of the brain was performed. CONTRAST MATERIAL: Noncontrast COMPARISON: CT CT HEAD WO from 12/22/2019 FINDINGS: VENTRICLES AND EXTRA AXIAL SPACES: Normal in size and morphology for the patient's age. HEMORRHAGE: None. CEREBRAL PARENCHYMA: There is mild to moderate atrophy. There are patchy areas of high signal in the white matter consistent with sequela of chronic microvascular ischemia. There is a small focus of r estricted diffusion in the posterior right frontal lobe near the right lateral ventricle consistent w ith an acute infarct. No additional areas of restricted diffusion are seen. No space-occupying lesi on identified. MIDLINE SHIFT: None. BRAINSTEM/CEREBELLUM: Normal. VISUALIZED PARANASAL SINUSES/MASTOIDS: Mild mucous retention in the sphenoid sinuses.. OTHER FINDINGS: The vascular flow voids appear intact. The orbits are unremarkable as visualized. T he pituitary is normal in size. IMPRESSION: Small area of acute or subacute an infarction in the periventricular white matter of the posterior ri ght frontal lobe. DATA REPOSITORY:
[2019-12-22] MEDS: Aspirin 81 MG CHEW PO ×2 (04:15→08:38)
--- NOTE | 2019-12-22 04:35 | DI.CT_ITS ---
EXAM: CT HEAD WO CLINICAL HISTORY: numbness L hand/arm. weakness legs. TECHNIQUE: Imaging Protocol: Axial computed tomography images with coronal and sagittal reformatted images were created and reviewed COMPARISON: No exams were available for comparison FINDINGS: Ventricles and Extra axial spaces: Normal in size and morphology for the patient's age. Hemorrhage: None. Cerebral parenchyma: Age-related atrophy and white matter changes microvascular disease are noted.. Midline shift: None. Brainstem/Cerebellum: Normal. Calvarium: Normal. Visualized Paranasal sinuses/Mastoids: Clear. Soft Tissues: Unremarkable. IMPRESSION: No acute intracranial process. RADIATION DOSE DELIVERED: 589.38mGy.cm Total DLP DATA REPOSITORY: All CT scans at this facility are submitted to the National Radiology Data Registry (NRDR) Dose Index Registry (DIR) with the [employer] (ACR). RADIATION OPTIMIZATION: All CT scans at this facility use at least one of these dose optimization te chniques: automated exposure control; mA and/or kV adjustment per patient size (includes targeted exa ms where dose is matched to clinical indication); or iterative reconstruction.
--- NOTE | 2019-12-22 04:47 | DI.VRAD_ITS ---
PROCEDURE INFORMATION: Exam: CT Head Without Contrast Exam date and time: 12/22/2019 4:35 AM Age: 79 years old Clinical indication: Weakness, extremity; Patient HX: Weakness in legs and numbness in left arm and hand, PT states she feels funny TECHNIQUE: Imaging protocol: Computed tomography of the head without contrast. Radiation optimization: All CT scans at this facility use at least one of these dose optimization techniques: automated exposure control; mA and/or kV adjustment per patient size (includes targeted exams where dose is matched to clinical indication); or iterative reconstruction. Other technique: STROKE PROTOCOL was implemented. COMPARISON: No relevant prior studies available. FINDINGS: Brain: Age- related chronic microvascular changes are noted within the white matter. Ventricles: The ventricles and sulci are prominent compatible with age-appropriate atrophy. Bones/joints: Unremarkable. No acute fracture. Sinuses: Visualized sinuses are unremarkable. No fluid levels. Mastoid air cells: Visualized mastoid air cells are well aerated. Soft tissues: Unremarkable. IMPRESSION: Age-appropriate atrophy and chronic microvascular change. ASSESSMENT: ASPECTS ([place] Stroke Program Early CT Score) is 10. Dictated and Authenticated by: Jamaal Burrell MD. Ordering:[facility] Ava Aparicio MD
--- NOTE | 2019-12-22 05:36 | PGE_ITS ---
Date of Service Date of service: 12/22/19 Time of Service: 05:36 Assessment and Plan Assessment and plan (1) Ischemic cerebrovascular accident (CVA): Status: Acute Assessment and plan: Patient seems to have some residual sensory and motor abnormalities on the left side. CT scan of the head was performed without contrast and showed age-appropriate atrophy and chronic microvascular changes but no cerebral bleed. Patient was given aspirin 81 mg when I got the phone call about her neurologic symptoms. She usually takes aspirin 81 mg daily. Charlene get an MRI and MRA of the brain and MRA of the cervical vessels. Patient already had an echocardiogram that showed no valvular abnormalities and no LV or RV wall motion abnormalities. I will also get a carotid duplex scan. I discussed her case with Dr. Estrada, neurology fellow on-call at [facility]. After she reviewed the CT scan and discussed the case with me she felt there is still possibility that her neurologic symptoms may be related to her gram-negative sepsis although I explained to Dr. Estrada that the acute septic picture seems to be resolving with repeat blood cultures from December 20, 2019 showing no growth and the patient being hemodynamically stable. She agreed with getting an MRI and MRA of the brain and cervical vessels. She recommended the addition of Plavix with a loading dose of 300 mg now on 75 mg daily. If the MRI is negative for acute CVA she recommend just keeping her on her aspirin. She agreed with checking glycohemoglobin A1c and lipid profile to try to work on reducing her risk factors for future cardiovascular events. At this time the patient is not a candidate for TPA secondary to recent surgery, i.e. her cystoscopy and ureteral stents. (2) HTN (hypertension): Status: Chronic Assessment and plan: Present time were going to allow the patient some passive hypertension for the next 48 hours and then gradually work on bringing her blood pressure under control with a goal of systolic blood pressure less than 140 over the next several days. In light of her stroke and her elevated blood pressures I am going to discontinue her Celebrex Qualifiers: Hypertension type: essential hypertension Qualified Code(s): I10 - Essential (primary) hypertension (3) Proteus septicemia: Status: Acute Assessment and plan: Continue current antibiotic treatment for her septicemia (4) Hyperlipidemia: Status: Acute Assessment and plan: Continue current Zocor dose but check her lipid levels and adjust medications accordingly Qualifiers: Hyperlipidemia type: unspecified Qualified Code(s): E78.5 - Hy perlipidemia, unspecified Subjective Subjective Interval history since last seen: 79-year-old female with history of hypertension, hypothyroidism, hyperlipidemia who is currently hospitalized for complicated UTI with by lateral nephrolithiasis underwent cystoscopy and bilateral ureteral stenting on December 18, 2019 with gram-negative bacteremia currently growing Proteus mirabilis in both her urine and blood cultures from December 17 but with repeat blood cultures from December 19 showing no growth. She is currently treated with ceftriaxone 2 g IV daily. Hyperlipidemia is treated with Zocor 20 mg nightly and she is on aspirin 81 mg daily. Yesterday evening around 630 she had a mechanical fall landing on her left knee but had no complaints of numbness or weakness and no acute mental status change. She did not hit her head and she was symptomatically treated with Tylenol and ice pack. Around 1:30 in the morning she had to get up to the bathroom and her nurse noticed that she seemed to be little unsteady on her gait but the patient was able to ambulate under her own power. Nurse attributed this due to her fall earlier in the evening. However her 330 this morning when the patient had to get up to the bathroom patient was a maximal assist of 2 people because she was unsteady in her gait and was listing to the left side and seemed to be dragging her left foot. At that time the patient was also complaining of numbness in her left forearm down to her left hand. No associated headaches or nausea or vomiting and no acute visual symptoms nor any dysarthric speech. I was notified of these changes at 4:06 AM and ordered a stat CT scan of her head without contrast and proceeded to come into the hospital to evaluate her. See my examination for details. At this time the patient denies any acute visual symptoms although she has chronic visual acuity problems her left eye from previous cataract surgery for which she had complications. She denies a headache at this time but continues to have numbness in her left forearm down to her left hand and she has some noticeable weakness in her left arm as well as her left leg. Exam Narrative Exam Narrative: Elderly obese female lying in bed in no apparent distress. She is alert and oriented person place and time and circumstance, HEENT reveals no facial asymmetry no dysarthric speech. Extraocular motion is intact. Pupils are asymmetric with the left pupil slanted and elliptical. Oropharynx is noninjected she has normal movement of her tongue or palate gag reflex is intact. Neck is supple nontender no appreciable bruits no JVD normal carotid pulses. Lungs are clear to auscultation Heart is regular rate and rhythm without murmur rub or gallop Abdomen is obese soft and nontender normal active bowel sounds. Neurologic exam: Cranial nerves grossly intact. Specifically visual acuity is intact to finger counting in all foley. No facial asymmetry. No dysarthric speech. Auditory grossly intact. Motor exam patient has difficulty holding her left arm up in the air and maintaining it with it drifting downward in less than 10 seconds. She also has drifting of her left leg but is able to hold up in the air. She has some slight but appreciable weakness in her left hand and left arm with hand band master strength and extension and flexion at the elbow with normal shoulder shrug. Strength in her left leg is 4 out of 5 with dorsiflexion and plantarflexion of the left foot and flexion extension at the knee and 5 out of 5 in the right side. Right upper extremity strength is normal. Sensation is slightly impaired to pinprick over the left humerus and left forearm compared to the right as well as of the left thigh and left lower leg compared to the right. Babinski exam was not able to be assessed secondary to withdrawal bilaterally. There was no extinction or inattention when bilateral testing of her upper and lower extremities. I scored her on the NIHSS scale is a 4 Objective Objective Clinical Data: Abnormal lab results 12/21/19 12/21/19 Range/Units 06:05 06:05 RBC 3.61 L (4.00-5.20) m/cumm Hgb 11.3 L (12.0-15.5) g/dL Hct 34.8 L (36.0-46.0) % MCV 96.4 H (80-95) fL MPV 11.6 H (8.0-11.0) fL Absolute Lymphocytes 0.74 L (1.2-3.4) k/cumm Creatinine 1.09 H (0.55-1.02) mg/dL Vital Signs Temperature 37.1 C 12/22/19 03:51 Temperature Source Tympanic 12/22/19 03:51 Pulse 69 12/22/19 03:51 Pulse Rhythm Regular 12/22/19 01:33 Pulse 88 12/18/19 20:01 Respiratory Rate 19 12/22/19 03:51 Respiratory Effort Non-Labored 12/22/19 01:33 Respiratory Depth Normal 12/22/19 01:33 Respiratory Pattern Normal 12/22/19 01:33 Blood Pressure 170/100 H 12/22/19 03:51 Blood Pressure Mean 79 12/18/19 20:01 Blood Pressure Position Supine 12/18/19 15:15 Pulse Oximetry 96 12/22/19 03:51 Oxygen Delivery Method Room Air 12/22/19 03:51 Oxygen Flow Rate 0 12/22/19 03:51 Pain Level 0 12/21/19 18:50 Comment 12/21/19 05:42 Intake & Output 12/21/19 12/21/19 12/22/19 11:59 23:59 11:59 Intake Total 1546.667 / 2906.667 1360 / 2906.667 480 / 480 Output Total 1650 / 2600 950 / 2600 450 / 450 Balance -103.333 / 306.667 410 / 306.667 30 / 30 Weight 76.4 kg Intake: IV 856.667 / 3022.751 3592 / 1856.667 Oral 690 / 1050 360 / 1050 480 / 480 Output: Urine 1650 / 2600 950 / 2600 450 / 450 Other: Urine Color [place] Yellow [place] Urine Appearance Hematuria Clear Clear Stool Size Large Moderate Stool Characteristics Soft Soft Brown Liquid Brown Laboratory Results WBC 6.75 k/cumm (4.4-10.8) 12/21/19 06:05 RBC 3.61 m/cumm (4.00-5.20) L 12/21/19 06:05 Hgb 11.3 g/dL (12.0-15.5) L 12/21/19 06:05 Hct 34.8 % (36.0-46.0) L 12/21/19 06:05 MCV 96.4 fL (80-95) H 12/21/19 06:05 MCH 31.3 pg (27.0-33.0) 12/21/19 06:05 MCHC 32.5 g/dL (32.0-36.0) 12/21/19 06:05 RDW 13.5 % (11.7-14.6) 12/21/19 06:05 Plt Count 168 x1000/uL (130-400) 12/21/19 06:05 MPV 11.6 fL (8.0-11.0) H 12/21/19 06:05 Immature Gran % 0.1 % 12/21/19 06:05 Neutrophils % 76.2 12/21/19 06:05 Lymphocytes % 11.0 12/21/19 06:05 Monocytes % 10.4 12/21/19 06:05 Eosinophils % 2.2 12/21/19 06:05 Basophils % 0.1 12/21/19 06:05 Absolute Neutrophils 5.14 k/cumm (1.2-6.7) 12/21/19 06:05 Absolute Lymphocytes 0.74 k/cumm (1.2-3.4) L 12/21/19 06:05 Absolute Monocytes 0.70 k/cumm (0.11-0.7) 12/21/19 06:05 Absolute Eosinophils 0.15 k/cumm (0.0-0.7) 12/21/19 06:05 Absolute Basophils 0.01 k/cumm (0.0-0.2) 12/21/19 06:05 Sodium 137 mmol/L (136-145) 12/21/19 06:05 Potassium 3.8 mmol/L (3.5-5.1) 12/21/19 06:05 Chloride 104 mmol/L (98-107) 12/21/19 06:05 Carbon Dioxide 26.4 mmol/L (21.0-32.0) 12/21/19 06:05 Anion Gap 6.6 mmol/L (3-11) 12/21/19 06:05 BUN 14 mg/dL (7-18) 12/21/19 06:05 Creatinine 1.09 mg/dL (0.55-1.02) H 12/21/19 06:05 Estimated GFR/1.73 m2 48.55 (mL/min/1.73m2) 12/21/19 06:05 Glucose 104 mg/dL (74-106) 12/21/19 06:05 Calcium 8.7 mg/dL (8.5-10.1) 12/21/19 06:05 Magnesium 1.9 mg/dL (1.8-2.4) 12/21/19 06:05 Total Bilirubin 0.3 mg/dL (0.2-1.0) 12/19/19 06:28 AST 49 U/L (15-37) H 12/19/19 06:28 ALT 44 U/L (14-59) 12/19/19 06:28 Alkaline Phosphatase 70 U/L (46-116) 12/19/19 06:28 C-Reactive Protein 17.05 mg/dL (0.0-0.3) H 12/19/19 06:28 Total Protein 6.5 g/dL (6.4-8.2) 12/19/19 06:28 Albumin 2.7 g/dL (3.4-5.0) L 12/19/19 06:28 Procalcitonin 35.8 ng/mL 12/19/19 06:28 TSH 2.74 uIU/mL (0.36-3.74) 12/18/19 15:30 Urine Color Yellow (Yellow) 12/18/19 17:00 Urine Clarity Clear (Clear) 12/18/19 17:00 Urine pH 7.5 (5-8) 12/18/19 17:00 Ur Specific [place] 1.020 (1.005-1.025) 12/18/19 17:00 Urine Protein 100 mg/dL (Negative) H 12/18/19 17:00 Urine Ketones Negative mg/dL (Negative) 12/18/19 17:00 Urine Blood Moderate (Negative) H 12/18/19 17:00 Urine Nitrite Negative (Negative) 12/18/19 17:00 Urine Bilirubin Negative (Negative) 12/18/19 17:00 Urine Urobilinogen 0.2 EU/dL (Up TO 0.2) 12/18/19 17:00 Ur Leukocyte Esterase Large (Negative) H 12/18/19 17:00 Urine RBC Negative HPF (0-2) 12/18/19 17:00 Urine WBC >50 HPF (0-5) H 12/18/19 17:00 Ur Epithelial Cells Negative HPF (Negative) 12/18/19 17:00 Urine Crystals Negative HPF (Negative) 12/18/19 17:00 Urine Bacteria Negative HPF (Negative) 12/18/19 17:00 Urine Mucus Negative (Negative) 12/18/19 17:00 Urine Other Few renal (Negative) 12/18/19 17:00 Ur Culture Indicated? Yes 12/18/19 17:00 Urine Glucose Negative mg/dL (Negative) 12/18/19 17:00 Salicylates Cancelled 12/20/19 09:14 COVID-19 PCR Negative (Negative) 12/18/19 19:46 Nasopharyn COVID-19 PCR Not Applicable 12/18/19 19:46 Ref Test Perform Site [facility] lab 12/18/19 19:46
[2019-12-22] MEDS: Heparin 5,000 UNITS/ML VIAL 5000 UNITS SC ×3 (05:42→21:35)
[2019-12-22] MEDS: Levothyroxine 50 MCG TAB PO (05:42)
[2019-12-22] MEDS: Normal Saline 1,000 ML 85 ML IV ×2 (06:12→21:36)
[2019-12-22] MEDS: Clopidogrel 300 MG TAB PO (06:12)
[2019-12-22 06:52] LABS: Abs Immature Grans 0.03 k/cumm (0.0-0.09); Absolute Basophil Count 0.01 k/cumm (0.0-0.2); Absolute Eosinophil Count 0.25 k/cumm (0.0-0.7); Absolute Lymphocyte Count 0.92 k/cumm (1.2-3.4); Absolute Monocyte Count 0.73 k/cumm (0.11-0.7); Absolute Neutrophil Count 4.54 k/cumm (1.2-6.7); Basophils % 0.2; Eosinophils % 3.9; HCT 34.5 % (36.0-46.0); HGB 11.6 g/dL (12.0-15.5); Immature Grans % 0.5 %; Lymphocytes % 14.2; Mean Corp. HGB Concentration 33.6 g/dL (32.0-36.0); Mean Platelet Volume 10.8 fL (8.0-11.0); Monocytes % 11.3; Neutrophils % 69.9; Platelet Count 198 x1000/uL (130-400); RBC 3.63 m/cumm (4.00-5.20); RBC Distribution Width 13.3 % (11.7-14.6); White Blood Cell Count 6.48 k/cumm (4.4-10.8)
[2019-12-22 07:05] LABS: Anion Gap 7.7 mmol/L (3-11); BUN 15 mg/dL (7-18); CO2 26.3 mmol/L (21.0-32.0); CREATININE 0.98 mg/dL (0.55-1.02); Calcium 8.9 mg/dL (8.5-10.1); Chloride 104 mmol/L (98-107); Estimated GFR 54.89 (mL/min/1.73m2); Glucose 111 mg/dL (74-106); Magnesium 1.7 mg/dL (1.8-2.4); Potassium 3.8 mmol/L (3.5-5.1); Sodium 138 mmol/L (136-145)
[2019-12-22 07:46] LABS: Procalcitonin 8.4 ng/mL
[2019-12-22] MEDS: Omeprazole 20 MG CAPCR PO (08:31)
[2019-12-22] MEDS: Metoclopramide 10 MG TAB PO (08:37)
[2019-12-22 08:38] LABS: Calculated LDL 87 mg/dL (<100); Cholesterol 141 mg/dL (<200); HDL Cholesterol 23 mg/dL (40-60); Triglyceride 155 mg/dL (<150)
[2019-12-22] MEDS: Thiamine 100 MG TAB PO (08:38)
[2019-12-22] MEDS: Venlafaxine 37.5 MG CAPCR 75 MG PO (08:38)
[2019-12-22] MEDS: Tamsulosin 0.4 MG CAPCR PO (08:38)
[2019-12-22] MEDS: Folic Acid 1 MG TAB PO (08:38)
[2019-12-22] MEDS: Multivitamin TAB 1 TAB PO (08:38)
[2019-12-22 08:43] LABS: Hemoglobin A1C 6.4 % (3.8-5.6)
--- NOTE | 2019-12-22 09:30 | IN_ITS ---
Date of service: 12/22/19 Time of Service: 09:30 PT Notes Visit Reasons: PYELONEPHRITIS POST OBSTRUCTIVE WITH URETEROLITHIA Physical Therapy Inpatient Initial Evaluation Date: 12/22/2019 Referring Doctor: Markus Figueredo MD PT Orders: PT CONSULT: Fall safety assessment. Evaluate and treat left hemiparesis, status post ischemic CVA. Precautions: Fall. Standard. Activity as tolerated. Patient Profile/Admitting Diagnosis: Charity is a 79-year-old female who presented to the ED on 12/18/2019 with chief complaints of low back pain that has worsened 4 days prior to admission. She developed acute fever while at the ED and became less responsive. Patient is diagnosed with urinary tract infection, ureteral calculus and is status post cystoscopy with bilateral retrograde pyelogram and insertion of bilateral ureteral stents. She is also found to have proteus septicemia, hyperlipidemia, and esophageal abnormality as of 12/19/2019. Patient had a fall the previous night and was also diagnosed with ischemic CVA with referral for skilled services in order to address functional mobility decline and facilitate discharge to home. PMHX: Medical History (Updated 12/22/19 @ 15:33 by Iman Brooke MD) Bilateral kidney stones (Acute) CAD (coronary artery disease), [place] coronary artery (Acute) Depression (Chronic) DNI (do not intubate) (Acute) DNR (do not resuscitate) (Acute) Fatty infiltration of liver (Acute) GERD (gastroesophageal reflux disease) (Chronic) Glaucoma (Chronic) Goals of care, counseling/discussion (Acute) HTN (hypertension) (Chronic) Hyperlipidemia (Acute) Hypothyroid (Chronic) OAB (overactive bladder) (Acute) Obesity (BMI 30.0-34.9) (Acute) Osteoarthritis (Chronic) Palliative care patient (Chronic) POLST (Physician Orders for Life-Sustaining Treatment) (Acute) done 12/22/19 Proteus septicemia (Acute) Right frontal lobe lesion (Chronic) stroke 12/21/19 Surgical History (Updated 12/22/19 @ 15:10 by Iman Brooke MD) Nephrostomy status (Acute) Social History/Home Situation: Patient lives alone in her private home in [place], [place]. She has 1 step to enter her house and has no other steps once inside as it is just 1 level. Daughter Hayde is an ICU nurse at this hospital. Charity is independent with all aspects of ADLs prior to admission. She stated that she has had more than 5 falls in the past 12 months due to some balance issues. Equipment Owned/DME: None Subjective: Patient reports being very tired from last night's events. She stated that she was trying to put on her shoes wanting to go use the bathroom. She stated that she ran for help but decided to go on her own as she could not wait. She denies hitting her head when she fell. Objective: General Observation: Telemetry monitoring in place. Oropeza catheter in place. Bilateral knee-high TEDS on. Mental Status: Alert and oriented as to person, place, time, and purpose Pain: None reported ROM: Right Upper Extremity: Shoulder Flexion WFL. Shoulder abduction WFL. Elbow flexion WFL. Wrist flexion WFL. Opening and closing of hand WFL. Left Upper Extremity: Shoulder Flexion allows about 0-30 degrees. Shoulder abduction allows about 0-30 degrees. Elbow flexion WFL. Unable to actively make a fist. Opening and closing of hand severely impaired. Right Lower Extremity: Hip flexion WFL. Hip abduction WFL. Knee flexion WFL. Ankle dorsiflexion WFL. Ankle plantarflexion WFL. Left Lower Extremity: Hip flexion about 10 degrees while seated at edge of bed. Hip abduction about 10 degrees on gravity?eliminated plane. Knee flexion about 30 degrees. Knee extension -20 degrees. Ankle dorsiflexion absent. Minimal foot slap seen during transfer activity. Strength: Right Upper Extremity: Shoulder flexors 4/5. Shoulder abductors 4/5. Elbow flexors 4/5. Elbow extensors 4/5. Privacy Manager strong. Left Upper Extremity: Shoulder flexors 3-/5. Shoulder abductors 3-/5. Elbow flexors 3/5. Elbow extensors 3-/5. Privacy Manager absent. Right Lower Extremity: Hip flexors 5/5. Hip abductors 5/5. Knee flexors 5/5. Knee extensors 5/5. Ankle dorsiflexors 5/5. Ankle plantarflexors 5/5. Left Lower Extremity:Hip flexors 3-/5. Hip abductors 3/5. Knee flexors 4/5. Knee extensors 4/5. Ankle dorsiflexors 4/5. Ankle plantarflexors 4/5. Sensation: Intact as to pain and pressure on R upper and lower extremities, diminished on L UE/LE. Bed Mobility/Transfers: Supine to sit moderate assist using right UEs for support Sit to supine moderate assist with support to B LE needed Sit to stand moderate assist with moderate verbal cueing for sequence and safety using front wheeled walker Stand to sit moderate assist with moderate verbal cueing for sequence and safety Bed to chair moderate assist with moderate verbal cueing for sequence and safety using front wheeled walker Chair to bed moderate assist with moderate verbal cueing for sequence and safety using front wheeled walker Gait: Patient tolerated short distance ambulation of only 5 steps using front wheeled walker with full weight bearing requiring moderate assist with moderate to maximal verbal cueing for sequence and overall safety. Hemiplegic gait seen. Balance: Static Sitting: Good Dynamic Sitting: Fair Static Standing: Poor Dynamic Standing: Poor Special Tests: Mobility Limitations Standardized Measure [facility] AM-PAC 6 clicks Basic Mobility Inpatient Short Form: Raw Score: 11 CMS Score: 73% deficit Informed Consent/Education: Patient instructed in purpose of PT consult and plan of care. Assessment: Patient demonstrates left-sided hemiparesis resulting to functional mobility decline, balance impairment, increased fall risk, and inability to thrive at home alone. She will highly benefit from skilled physical therapy services in order to mitigate existing impairment level finding and functional limitations listed below. Charity is a 79-year-old female who presented to the ED on 12/18/2019 with chief complaints of low back pain that has worsened 4 days prior to admission. She developed acute fever while at the ED and became less responsive. Patient is diagnosed with urinary tract infection, ureteral calculus and is status post cystoscopy with bilateral retrograde pyelogram and i nsertion of bilateral ureteral stents. She is also found to have pro to septicemia, hyperlipidemia, and esophageal abnormality as of 12/19/2019. Patient had a fall the previous night and was also diagnosed with ischemic CVA with referral for skilled services in order to address functional mobility decline and facilitate discharge to home. Patient presents with clinical signs and symptoms consistent with current/admitting diagnoses that have resulted to mobility limitations, gait instability, generalized weakness, and impairment of motor control as demonstrated by the following impairment level findings: 1. Decreased strength to L UE/LE major muscle groups 2. Impaired sitting/standing balance 3. Impaired activity tolerance 4. Limitation of joint range of motion in L UE/LE Impairments are contributing to the following functional limitations: 1. Dependent bed mobility skills 2. Increased dependence with transfers 3. Inability to safely ambulate without assistive device and physical assistance 4. Increase completion time for mobility ADL performance 5. Increased fall risk 6. Inability to negotiate steps alone safely Patient is assessed as a 31806 moderate complexity based on the following: History: 79-year-old female with impairment level findings, functional limitations, and past medical history as listed above Examination: Demonstrable impairment in strength, balance, and range of motion with underlying impairments and functional limitations as documented above Presentation: [id number] moderate complexity evolving Decision Making: Goals: Goals X1 week 1. Supine-Sit independent 2. Sit-Supine independent 3. Sit-Stand standby assist 4. Stand-Sit standby assist 5. Bed-Chair standby assist 6. Chair-Bed standby assist 7. Standby assist gait on level surface with use of least restrictive device for at least 300 feet without report of pain nor dyspnea 8. Standby assist stair negotiation while holding onto bilateral rails for at least 10 steps without report of pain nor dyspnea 9. Independent with home exercise program 10. Good static and dynamic standing balance/tolerance Plan of Care/Treatment Plan: 1-2x/day, 7 days/week x 1 week. Plan of care has been reviewed with the MECHANICAL ENGINEERING DIRECTOR providing the service under Physical Therapy direction. Initiate Physical Therapy intervention for strengthening, bed mobility, transfers, gait, stairs, balance training, use of assistive device. DISCHARGE RECOMMENDATIONS: Patient will benefit from detention facility placement for continued skilled physical therapy services in order to progress mobility level, strength, and balance in preparation for a safe discharge to home. TREATMENT CODE/TIME: [id number] x 27 minutes beginning at 9:30 AM. Thank you very much for this referral. Lyndsey Haile PT, DPT, CLT [facility] [place], [place]
--- NOTE | 2019-12-22 10:47 | W.PM.PROGNOT ---
Date of Service Date of service: 12/22/19 Time of Service: 08:00 Assessment and Plan Assessment and plan (1) Ischemic cerebrovascular accident (CVA): Status: Acute Assessment and plan: Suspected. Patient is on asa 81 mg PO daily, plavix, simvastatin 20 mg PO qhs. Awaiting MRI read, neurology consult, speech/PT/OT evals. Continue to monitor neurological status. Continue to monitor on tele. (2) HTN (hypertension): Status: Chronic Assessment and plan: Permissiver hypertension given new CVA Qualifiers: Hypertension type: essential hypertension Qualified Code(s): I10 - Essential (primary) hypertension (3) Proteus septicemia: Status: Acute Assessment and plan: Due to proteus UTI complicated by obstructive nephrolithiasis on R and nonobstructive on left, s/p cysto/B stent placement by Dr Holman on 12/18/2019. Repeat blood cultures negative. Case discussed with [facility] as well as with Dr Holman (not here today). Plan for now is to continue IV antibiotics through stone removal, planned for next week. Will discuss with both urology and anesthesia whether this should be done here considering this new suspected CVA and initiation of plavix - may require transfer to a tertiary care facility for this procedure. (4) Ureteral calculus: Status: Acute Assessment and plan: Bilateral. As above (5) Hyperlipidemia: Status: Acute Assessment and plan: Continue simvastatin Qualifiers: Hyperlipidemia type: unspecified Qualified Code(s): E78.5 - Hyperlipidemia, unspecified (6) Esophageal abnormality: Status: Chronic Assessment and plan: Patient has a history of esophageal dysmotility and esophageal stricture, previously requiring dilatation. It appears that in July of 2019, there was a dilatation performed at [facility]. It is unclear if the patient's dysphagia is oropharyngeal or esophageal-phase. In addition, she has a new R facial droop. Await speech consult. (7) Wenckebach block: Status: Acute Assessment and plan: While asleep, asymptomatic. Benign rhythm. Continue to monitor on tele. (8) DACIA (acute kidney injury): Status: Resolved Assessment and plan: Multifactorial - obstructive and due to sepsis. (9) DVT prophylaxis: Status: Acute Assessment and plan: Heparin SC (10) Discharge planning issues: Status: Acute Assessment and plan: Full code Palliative care consulted. Ultimately, further inpatient course depends on anesthesia/urology decision as to where the patient should have her stone retrieval. Subjective Subjective Interval history since last seen: Ms Joyner appears to have had an acute CVA overnight. I came to evaluate her this morning - she appears to have a subtle right facial droop. She has L hemiparesis, though I am more impressed with the sx in her LUE than LLE. On telemetry she was noted to be going from very prolonged 1st degree AV block into [facility] - reportedly, while resting with HR in high 30's-40s. Ms Joyner denies dizziness, headache, chest pain, shortness of breath, nausea, numbness/tingling. Exam Narrative Exam Narrative: General: Very pleasant obese female, laying comfortably in bed, A&Ox3, but elusive in her answers Neuro: A&Ox3, slight R facial droop, 4/5 strength LUE, 4+/5 strength LLE HEENT: EOMI, MMM, R facial droop Heart: RRR Lungs: CTAB Abdomen: soft, nontender, nondistended Extremities: no e/c/c BLE's Objective Objective Clinical Data: Abnormal lab results 12/22/19 12/22/19 12/22/19 Range/Units 06:40 06:40 06:40 RBC 3.63 L (4.00-5.20) m/cumm Hgb 11.6 L (12.0-15.5) g/dL Hct 34.5 L (36.0-46.0) % Absolute Lymphocytes 0.92 L (1.2-3.4) k/cumm Absolute Monocytes 0.73 H (0.11-0.7) k/cumm Glucose 111 H (74-106) mg/dL Hemoglobin A1c (3.8-5.6) % Magnesium 1.7 L (1.8-2.4) mg/dL C-Reactive Protein 9.70 H (0.0-0.3) mg/dL Triglycerides 155 H (<150) mg/dL HDL Cholesterol 23 L (40-60) mg/dL 12/22/19 Range/Units 06:40 RBC (4.00-5.20) m/cumm Hgb (12.0-15.5) g/dL Hct (36.0-46.0) % Absolute Lymphocytes (1.2-3.4) k/cumm Absolute Monocytes (0.11-0.7) k/cumm Glucose (74-106) mg/dL Hemoglobin A1c 6.4 H (3.8-5.6) % Magnesium (1.8-2.4) mg/dL C-Reactive Protein (0.0-0.3) mg/dL Triglycerides (<150) mg/dL HDL Cholesterol (40-60) mg/dL Vital Signs Temperature 37.1 C 12/22/19 09:31 Temperature Source Tympanic 12/22/19 09:31 Pulse 78 12/22/19 09:31 Pulse Rhythm Regular 12/22/19 03:31 Pulse 88 12/18/19 20:01 Respiratory Rate 18 12/22/19 09:31 Respiratory Effort 12/22/19 04:05 Respiratory Depth Normal 12/22/19 03:31 Respiratory Pattern Normal 12/22/19 03:31 Blood Pressure 170/87 H 12/22/19 09:31 Blood Pressure Mean 79 12/18/19 20:01 Blood Pressure Position Supine 12/18/19 15:15 Pulse Oximetry 97 12/22/19 09:31 Oxygen Delivery Method Room Air 12/22/19 09:31 Oxygen Flow Rate 0 12/22/19 09:31 Pain Level 0 12/22/19 09:31 Comment 12/21/19 05:42 Intake & Output 12/21/19 12/21/19 12/22/19 11:59 23:59 11:59 Intake Total 1546.667 / 2956.667 1410 / 2956.667 600 / 600 Output Total 1650 / 2600 950 / 2600 1125 / 1125 Balance -103.333 / 356.667 460 / 356.667 -525 / -525 Weight 76.4 kg 77 kg Intake: IV 856.667 / 1674.333 8534 / 1906.667 Oral 690 / 1050 360 / 1050 600 / 600 Output: Urine 1650 / 2600 950 / 2600 1125 / 1125 Other: Urine Color [place] Yellow Straw Urine Appearance [place]atur[place] Clear Cloudy Stool Size Large Large Stool Characteristics Soft Soft Brown Formed Brown Laboratory Results WBC 6.48 k/cumm (4.4-10.8) 12/22/19 06:40 RBC 3.63 m/cumm (4.00-5.20) L 12/22/19 06:40 Hgb 11.6 g/dL (12.0-15.5) L 12/22/19 06:40 Hct 34.5 % (36.0-46.0) L 12/22/19 06:40 MCV 95.0 fL (80-95) 12/22/19 06:40 MCH 32.0 pg (27.0-33.0) 12/22/19 06:40 MCHC 33.6 g/dL (32.0-36.0) 12/22/19 06:40 RDW 13.3 % (11.7-14.6) 12/22/19 06:40 Plt Count 198 x1000/uL (130-400) 12/22/19 06:40 MPV 10.8 fL (8.0-11.0) 12/22/19 06:40 Immature Gran % 0.5 % 12/22/19 06:40 Neutrophils % 69.9 12/22/19 06:40 Lymphocytes % 14.2 12/22/19 06:40 Monocytes % 11.3 12/22/19 06:40 Eosinophils % 3.9 12/22/19 06:40 Basophils % 0.2 12/22/19 06:40 Absolute Neutrophils 4.54 k/cumm (1.2-6.7) 12/22/19 06:40 Absolute Lymphocytes 0.92 k/cumm (1.2-3.4) L 12/22/19 06:40 Absolute Monocytes 0.73 k/cumm (0.11-0.7) H 12/22/19 06:40 Absolute Eosinophils 0.25 k/cumm (0.0-0.7) 12/22/19 06:40 Absolute Basophils 0.01 k/cumm (0.0-0.2) 12/22/19 06:40 Sodium 138 mmol/L (136-145) 12/22/19 06:40 Potassium 3.8 mmol/L (3.5-5.1) 12/22/19 06:40 Chloride 104 mmol/L (98-107) 12/22/19 06:40 Carbon Dioxide 26.3 mmol/L (21.0-32.0) 12/22/19 06:40 Anion Gap 7.7 mmol/L (3-11) 12/22/19 06:40 BUN 15 mg/dL (7-18) 12/22/19 06:40 Creatinine 0.98 mg/dL (0.55-1.02) 12/22/19 06:40 Estimated GFR/1.73 m2 54.89 (mL/min/1.73m2) 12/22/19 06:40 Glucose 111 mg/dL (74-106) H 12/22/19 06:40 Hemoglobin A1c 6.4 % (3.8-5.6) H 12/22/19 06:40 Calcium 8.9 mg/dL (8.5-10.1) 12/22/19 06:40 Magnesium 1.7 mg/dL (1.8-2.4) L 12/22/19 06:40 Total Bilirubin 0.3 mg/dL (0.2-1.0) 12/19/19 06:28 AST 49 U/L (15-37) H 12/19/19 06:28 ALT 44 U/L (14-59) 12/19/19 06:28 Alkaline Phosphatase 70 U/L (46-116) 12/19/19 06:28 C-Reactive Protein 9.70 mg/dL (0.0-0.3) H 12/22/19 06:40 Total Protein 6.5 g/dL (6.4-8.2) 12/19/19 06:28 Albumin 2.7 g/dL (3.4-5.0) L 12/19/19 06:28 Triglycerides 155 mg/dL (<150) H 12/22/19 06:40 Total Cholesterol 141 mg/dL (<200) 12/22/19 06:40 LDL Cholesterol, Calc 87 mg/dL (<100) 12/22/19 06:40 HDL Cholesterol 23 mg/dL (40-60) L 12/22/19 06:40 Procalcitonin 8.4 ng/mL 12/22/19 06:40 TSH 2.74 uIU/mL (0.36-3.74) 12/18/19 15:30 Urine Color Yellow (Yellow) 12/18/19 17:00 Urine Clarity Clear (Clear) 12/18/19 17:00 Urine pH 7.5 (5-8) 12/18/19 17:00 Ur Specific [place] 1.020 (1.005-1.025) 12/18/19 17:00 Urine Protein 100 mg/dL (Negative) H 12/18/19 17:00 Urine Ketones Negative mg/dL (Negative) 12/18/19 17:00 Urine Blood Moderate (Negative) H 12/18/19 17:00 Urine Nitrite Negative (Negative) 12/18/19 17:00 Urine Bilirubin Negative (Negative) 12/18/19 17:00 Urine Urobilinogen 0.2 EU/dL (Up TO 0.2) 12/18/19 17:00 Ur Leukocyte Esterase Large (Negative) H 12/18/19 17:00 Urine RBC Negative HPF (0-2) 12/18/19 17:00 Urine WBC >50 HPF (0-5) H 12/18/19 17:00 Ur Epithelial Cells Negative HPF (Negative) 12/18/19 17:00 Urine Crystals Negative HPF (Negative) 12/18/19 17:00 Urine Bacteria Negative HPF (Negative) 12/18/19 17:00 Urine Mucus Negative (Negative) 12/18/19 17:00 Urine Other Few renal (Negative) 12/18/19 17:00 Ur Culture Indicated? Yes 12/18/19 17:00 Urine Glucose Negative mg/dL (Negative) 12/18/19 17:00 Salicylates Cancelled 12/20/19 09:14 COVID-19 PCR Negative (Negative) 12/18/19 19:46 Nasopharyn COVID-19 PCR Not Applicable 12/18/19 19:46 Ref Test Perform Site [place] [facility] lab 12/18/19 19:46 MRI brain pending
--- NOTE | 2019-12-22 11:33 | W.PALLCONSUL ---
Date of service: 12/22/19 History of Present Illness History of Present Illness Chief Complaint: kidney stones, pyelonephritis, stroke Narrative: I met with Charity in person. Her daughter and DPOA Kristygiancarlo Geller RN was on the phone with us. I reviewed her chart and discussed her case with both care management and the hospitalist team. I was asked to establish care with Charity and address her goals of care, particularly her CODE STATUS. She and I filled out the first two decisions of the COLST form. She indicated she wishes to be DNR/DNI. She will meet with Leonela Trinh later this week to complete the form, i.e. discussion of feeding tubes, antibiotics, etc. She reports that she has surgery to remove her kidney stones next week. Currently, she has nephrostomy tubes placed on this admission by Dr Holman, urology. She was hoping she could stay inpatient until her surgery next week. Last night, she fell, and since then has had persistent mild to moderate left hemiparesis with some subtle facial droop and nasolabial fold flattening. She had an MRI/MRA of her brain done earlier in the am. Results were not back at the time of my visit with her. Results are back now: she had a small infarct in the posterior right frontal lobe. Consults Consult date: 12/22/19 Requesting physician: Yudi Hu Assessment and Plan Assessment and plan (1) Goals of care, counseling/discussion: Status: Acute Assessment and plan: Reviewed her goals of care. She witnessed her be coded, even though he was DNR/DNI. She does not want that for herself. She filled out the first 2 questions of the COLST form. She will finish the rest on Friday with Leonela Trinh NP as we ran out of time. Her code status was changed in our system to respect her wishes. Daughter Kristy was on the phone during our conversation and her mother's signing. She is Charity's medical DPOA/health care agent She does want to return home where she lives alone. She is willing to go for walks around the house, but not in her development as she is deathly afraid/phobic about the possible presences of rabid foxes or coyotes. Kristy has tried numerous times to get her to walk outside but she won't. She will accept PT at home; I explained that she MAY need additional PT in a rehab after her kidney surgery with Dr Holman. She would prefer not; she would like to go directly once released. (2) Bilateral kidney stones: Status: Acute Assessment and plan: Dr Holman following. Sepsis resolved. Continues on antibiotics. Feeling much better. Nephrostomy tubes draining. (3) Right frontal lobe lesion: Status: Chronic Assessment and plan: Stroke occurred night of 12/21/19. Working with PT. Explained importance of her being aggressive with her PT, especially since she wants to go home alone once discharged. Says she is motivated. Kristy worries more about what her mother will do once back at home. No cardiac arrhythmia identified yet. She is on tele. New diagnosis of HTN within the last month. Was on lisinopril 5 mg daily as of last week. Permissive HTN for now, given recent stroke. Dr Patel, neurology, to weigh in with advice shortly. (4) Palliative care patient: Status: Chronic Assessment and plan: Looks as if she will still live another few years. Not near dying. But has had a bad run of events lately. Wants guidance and translation of medical information. Will continue to follow. (5) HTN (hypertension): Status: Chronic Assessment and plan: Newly recognized by her PCP. Just started on BP meds a week before this stroke. Off medication for now, given need for permission HTN. Qualifiers: Hypertension type: essential hypertension Qualified Code(s): I10 - Essential (primary) hypertension Review of Systems Constitutional Constitutional: Reports weakness Comments: transient loss of vision twice 3 weeks ago, both times while she was driving. Eye exam wnl. Mildly elevated BP in outpatient clinic. just started last week of first hypertensive medication, lisinopril 5 mg daily Eyes Eyes: Reports loss of vision (transient twice while driving 3 wks ago) ENT Ears, Nose, Mouth, and Throat: Reports disequilibrium Cardiovascular Cardiovascular: Denies syncope, Denies irregular heart rhythm, Reports lightheadedness, Denies palpitations and Reports dyspnea on exertion Respiratory Respiratory: Reports dyspnea on exertion Gastrointestinal Gastrointestinal: Reports constipation Genitourinary Genitourinary: Reports difficulty voiding (prior to nephrostomy tubes placement) and Reports urinary incontinence Musculoskeletal Musculoskeletal: Reports abnormal gait and Reports muscle weakness Integumentary/Breasts Skin/Breast: Reports unusual bruising (from her fall) Neurologic Neurologic: Reports abnormal speech, Reports abnormal gait, Denies syncope, Reports lack of coordination, Reports loss of vision (transient twice while driving 3 wks ago), Reports memory loss (mild cognitive impairment), Reports disequilibrium and Reports weakness Psychiatric Psychiatric: Reports memory loss (mild cognitive impairment) Endocrine Endocrine: Reports heat intolerance and Denies palpitations [facility] Medical History (Updated 12/22/19 @ 15:33 by Iman Brooke MD) Bilateral kidney stones (Acute) CAD (coronary artery disease), [place] coronary artery (Acute) Depression (Chronic) DNI (do not intubate) (Acute) DNR (do not resuscitate) (Acute) Fatty infiltration of liver (Acute) GERD (gastroesophageal reflux disease) (Chronic) Glaucoma (Chronic) Goals of care, counseling/discussion (Acute) HTN (hypertension) (Chronic) Hyperlipidemia (Acute) Hypothyroid (Chronic) OAB (overactive bladder) (Acute) Obesity (BMI 30.0-34.9) (Acute) Osteoarthritis (Chronic) Palliative care patient (Chronic) POLST (Physician Orders for Life-Sustaining Treatment) (Acute) done 12/22/19 Proteus septicemia (Acute) Right frontal lobe lesion (Chronic) stroke 12/21/19 Surgical History (Updated 12/22/19 @ 15:10 by Iman Brooke MD) Nephrostomy status (Acute) Family History (Updated 12/22/19 @ 15:14 by Iman Brooke MD) Mother , age 82 on hospice from lung cancer Lung cancer Father , age 65 from acute [place] Myocardial infarction Daughter No problems noted. 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 Her sense of time around his is inaccurate. Still grieving. Lives alone in [place]. Daughter Kristy in [facility]. Kristy has encouraged her mother to be more active; she resists. Very afraid of getting rabies from foxes and coyotes; hates to go outside. Exam Narrative Exam Narrative: General: Very pleasant obese female, sitting up in her chair, just completed PT, A&Ox3, but states she has trouble understanding LEBANESE, her first language is ITALIAN, which she uses on a daily basis. Neuro: A&Ox3, slight R facial droop, 4/5 strength LUE, 4+/5 strength LLE Skin: bruises from IV Back: nephrostomy tubes in place x 2, draining clear urine HEENT: EOMI, MMM, R facial droop and flattening of nasolabial fold Heart: RRR, no murmur appreciated Lungs: CTAB, no increased WOB Psych: very independent woman, but having more cognitive issues lately. Scared, a bit anxious. Wishes we could speak [place]. Abdomen: soft, nontender, nondistended Extremities: no edema BLE, pulses present but reduced to 1+ bilateral LE Results Last Vital Signs Temp 98.8 F 12/22/19 09:31 Pulse 78 12/22/19 09:31 Resp 18 12/22/19 09:31 BP 170/87 H 12/22/19 09:31 Pulse Ox 97 12/22/19 09:31 Labs Result diagrams: 12/22/19 06:40 12/22/19 06:40 Labs: Laboratory Results - last 24 hr 12/22/19 12/22/19 12/22/19 06:40 06:40 06:40 WBC 6.48 RBC 3.63 L Hgb 11.6 L Hct 34.5 L MCV 95.0 MCH 32.0 MCHC 33.6 RDW 13.3 Plt Count 198 MPV 10.8 Immature Gran % 0.5 Neutrophils % 69.9 Lymphocytes % 14.2 Monocytes % 11.3 Eosinophils % 3.9 Basophils % 0.2 Absolute Neutrophils 4.54 Absolute Lymphocytes 0.92 L Absolute Monocytes 0.73 H Absolute Eosinophils 0.25 Absolute Basophils 0.01 Sodium 138 Potassium 3.8 Chloride 104 Carbon Dioxide 26.3 Anion Gap 7.7 BUN 15 Creatinine 0.98 Estimated GFR/1.73 m2 54.89 Glucose 111 H Hemoglobin A1c Calcium 8.9 Magnesium 1.7 L C-Reactive Protein 9.70 H Triglycerides Total Cholesterol LDL Cholesterol, Calc HDL Cholesterol Procalcitonin 8.4 12/22/19 12/22/19 06:40 06:40 WBC RBC Hgb Hct MCV MCH MCHC RDW Plt Count MPV Immature Gran % Neutrophils % Lymphocytes % Monocytes % Eosinophils % Basophils % Absolute Neutrophils Absolute Lymphocytes Absolute Monocytes Absolute Eosinophils Absolute Basophils Sodium Potassium Chloride Carbon Dioxide Anion Gap BUN Creatinine Estimated GFR/1.73 m2 Glucose Hemoglobin A1c 6.4 H Calcium Magnesium C-Reactive Protein Triglycerides 155 H Total Cholesterol 141 LDL Cholesterol, Calc 87 HDL Cholesterol 23 L Procalcitonin
[2019-12-22] MEDS: MAGNESIUM SULFATE 2 GM/50 ML BAG IVPB (11:58)
--- NOTE | 2019-12-22 15:18 | PTTR_ITS ---
Date of service: 12/22/19 Time of Service: 15:18 PT Notes Visit Reasons: PYELONEPHRITIS POST OBSTRUCTIVE WITH URETEROLITHIA Inpatient Physical Therapy Treatment Note [facility] Date: 12/22/2019 PRECAUTIONS: Fall. Standard. Activity as tolerated. Left-sided hemiparesis. SUBJECTIVE: Patient reports headache that started this afternoon which she states she has not had for a long time. She refused any out of bed activities because of such unusual headache. Nurse was updated right away. OBJECTIVE: Telemetry monitoring in place. Oropeza catheter in place IV in the right UE. PAIN: Patient reports headache at 4/10 BED MOBILITY/TRANSFERS Supine to sit moderate assist using right UEs for support Sit to supine moderate assist with support to B LE needed NEURO RE-ED and THERA EX: Patient agreed to perform dynamic sitting balance/tolerance activity while weight bearing through the left UE and bilateral pelvis working on weight shifting side to side and then forward to back for 10 minutes. Patient also performed long arc quads on both sides x10 reps, seated hip flexion x10 reps, and ankle dorsiflexion and plantarflexion just on the right side x10. Assessment: Patient demonstrates left-sided hemiparesis resulting to functional mobility decline, balance impairment, increased fall risk, and inability to thrive at home alone. She will highly benefit from skilled physical therapy services in order to mitigate existing impairment level finding and functional limitations listed below. Charity is a 79-year-old female who presented to the ED on 12/18/2019 with chief complaints of low back pain that has worsened 4 days prior to admission. She developed acute fever while at the ED and became less responsive. Patient is diagnosed with urinary tract infection, ureteral calculus and is status post cystoscopy with bilateral retrograde pyelogram and insertion of bilateral ureteral stents. She is also found to have pro to septicemia, hyperlipidemia, and esophageal abnormality as of 12/19/2019. Patient had a fall the previous night and was also diagnosed with ischemic CVA with referral for skilled services in order to address functional mobility decline and facilitate discharge to home. Plan of Care/Treatment Plan: 1-2x/day, 7 days/week x 1 week. Plan of care has been reviewed with the CRULLER MAKER MACHINE providing the service under Physical Therapy direction. Initiate Physical Therapy intervention for strengthening, bed mobility, transfers, gait, stairs, balance training, use of assistive device. DISCHARGE RECOMMENDATIONS: Patient will benefit from intermediate facility placement for continued skilled physical therapy services in order to progress mobility level, strength, and balance in preparation for a safe discharge to home. TREATMENT CODE/TIME: 56582 x 24 minutes beginning at 15:18 PM.
[2019-12-22] MEDS: Acetaminophen 325 MG TAB 650 MG PO ×2 (15:40→19:24)
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
--- NOTE | 2019-12-22 17:47 | PDOC.CMPRO ---
- If Service Date Differs Date of service: 12/22/19 Time of Service: 17:47 Care Management Progress Note S/O: Chartiy was lying in bed when CM met with her. She reported it has been a busy day, with multiple tests and consults. CM coordinated at palliative consult with Dr. Brooke today, and included Kristy, her daughter. Charity stated that she slept well last night, and was hoping to get good sleep tonight. CM will continue to follow. A: Charity is a 79 year old female admitted to [facility] on 12/18/19 for Obstructing ureteral stone on the right with hydronephrosis and possible pyelonephritis. P: Anticipate Charity will return home with continued support from her daughter and family once medically cleared. Evaluations needed to determine additional support/services upon discharge. She will be transported by family via private vehicle, when ready. She will follow up with her PCP, and Urology, as recommended. CM will continue to follow and support discharge planning considerations.
[2019-12-22] MEDS: cefTRIAXone 2 GM/50 ML BAG IVPB (19:24)
[2019-12-22] MEDS: Oxybutynin-CR 5 MG TABCR PO (21:35)
[2019-12-22] MEDS: Simvastatin 20 MG TAB PO (21:36)
[2019-12-23] VITALS (10 sets, daily range): BP systolic 152–180; BP diastolic 68–96; PULSE 65–76; RESP 16–18; TEMP 36.2–37.4; O2SAT 95–98
[2019-12-23] MEDS: Levothyroxine 50 MCG TAB PO (06:11)
[2019-12-23] MEDS: Heparin 5,000 UNITS/ML VIAL 5000 UNITS SC ×3 (06:11→21:52)
[2019-12-23 07:14] LABS: Abs Immature Grans 0.05 k/cumm (0.0-0.09); Absolute Basophil Count 0.02 k/cumm (0.0-0.2); Absolute Eosinophil Count 0.32 k/cumm (0.0-0.7); Absolute Monocyte Count 0.66 k/cumm (0.11-0.7); Absolute Neutrophil Count 3.89 k/cumm (1.2-6.7); Basophils % 0.3; Eosinophils % 5.2; HCT 33.4 % (36.0-46.0); HGB 11.2 g/dL (12.0-15.5); Immature Grans % 0.8 %; Lymphocytes % 19.5; Mean Corp. HGB Concentration 33.5 g/dL (32.0-36.0); Mean Corpuscular Volume 95.4 fL (80-95); Mean Platelet Volume 10.7 fL (8.0-11.0); Monocytes % 10.7; Neutrophils % 63.5; Platelet Count 238 x1000/uL (130-400); RBC Distribution Width 13.3 % (11.7-14.6); White Blood Cell Count 6.14 k/cumm (4.4-10.8)
[2019-12-23 07:28] LABS: Anion Gap 5.5 mmol/L (3-11); BUN 16 mg/dL (7-18); CO2 27.5 mmol/L (21.0-32.0); CREATININE 1.03 mg/dL (0.55-1.02); Calcium 8.9 mg/dL (8.5-10.1); Chloride 105 mmol/L (98-107); Estimated GFR 51.82 (mL/min/1.73m2); Glucose 105 mg/dL (74-106); Potassium 3.9 mmol/L (3.5-5.1); Sodium 138 mmol/L (136-145)
--- NOTE | 2019-12-23 07:45 | OTIE_ITS ---
Occupational Therapy Notes Inpatient Occupational Therapy Evaluation Date: 12/23/19 Referring Doctor: Yudi Hu MD OT Orders: Non-Urgent, Evaluate and Treat Precautions: Fall, Standard, DNR/DNI PATIENT PROFILE/ADMITTING DIAGNOSIS: Pt is a 79 year old female who presented to the ER on 12/18/19 with c/o neck and back pain for 4 days prior. She was seen for a urology consult at that time ad it was determined that she had sepsis syndrome and uretal calculus. She was admitted to [facility] for IV antibiotics and drainage of presumed infected (R) kidney with an operation performed by Dr. Holman on 12/18/19. It was determined that pt had an obstructing uretal stone on (R) with hydronephrosis and possible pyelonephritis. She was admitted with the following dx at the time; UTI, uretal calculus, esophageal abnormalty, hyperlipidemia, HTN, DACIA, hypothyroid, DVT prophylaxis. Pt had a fall recently and was also diagnosed with ischemic CVA with (L) hemiparesis. OT consult was requested for evaluation of pts functional (I) in regards to her ADL/IADL routines. Past Medical History- Medical History (Updated 12/22/19 @ 15:33 by Iman Brooke MD) Bilateral kidney stones (Acute) CAD (coronary artery disease), [place] coronary artery (Acute) Depression (Chronic) DNI (do not intubate) (Acute) DNR (do not resuscitate) (Acute) Fatty infiltration of liver (Acute) GERD (gastroesophageal reflux disease) (Chronic) Glaucoma (Chronic) Goals of care, counseling/discussion (Acute) HTN (hypertension) (Chronic) Hyperlipidemia (Acute) Hypothyroid (Chronic) OAB (overactive bladder) (Acute) Obesity (BMI 30.0-34.9) (Acute) Osteoarthritis (Chronic) Palliative care patient (Chronic) POLST (Physician Orders for Life-Sustaining Treatment) (Acute) done 12/22/19 Proteus septicemia (Acute) Right frontal lobe lesion (Chronic) stroke 12/21/19 Surgical History (Updated 12/22/19 @ 15:10 by Iman Brooke MD) Nephrostomy status (Acute) Social History/Home Situation: Pt lives alone in [place], [place]. Her daughter is her support person. She has been previously driving (I) but per daughters report she has noticed increased blind spots. PCP did do testing for pt which all came back negative at the time. Pt states that she has a neighbor who she is very close with. She notes that she has one step to enter her home. She has railings in place. She reports that she is (I) at baseline. She has a tub/shower with a shower bench. She has a raised toilet seat and a walker that she bought for her when he was alive. She notes that she has two daughters both of which work in the medical field. Equipment owned/DME: shower bench, FWW, raised toilet seat, shoe horn, sock aid. SUBJECTIVE: Pt was sitting in chair when OT arrived. She was agreeable to OT session and reports that she is feeling well today. OBJECTIVE: General Observation: [place], (R) UE IV, (R) hand dominant, (L) side neglect early stages, pleasant and cooperative, able to answer questions appropriately. Mental Status: A&Ox3 Pain: no c/o pain ROM: RUE AROM WFL L UE Actively pt is able to achieve 100* flexion, increased performance time and she can achieve elbow flexion and extension with decreased gross and fine motor control, when supported (I) with ideal wrist extension. STRENGTH: RUE 4/5 throughout LUE Shoulder flexion 2-/5, bicep/tricep 2/5, floor manager is weak SENSATION: Intact per pt report (B) FUNCTIONAL MOBILITY/ADLS: Transfers with FWW BATHING sitting in chair Bathing UE Hair was mod (A), pt denies all other bathing routine at this time reporting that she was washed last night and is not interested at this time. DRESSING Sitting in chair Dressing LE Max (A) don and doffing (B) socks and shoes. GROOMING Able to (I) brush her hair in seated position with (R) UE, can touch hair with (L) with decreased gross and fine motor control. TOILETING NT BALANCE: Static sitting Normal Dynamic Sitting Good SPECIAL TESTS: Daily Activity Limitations Standardized Measure [facility] AM -PAC ?6 clicks? Daily Activity Inpatient Short Form: Raw score: 17 Standardized score: 37.26 CMS score: 50.11% INFORMED CONSENT/EDUCATION: Pt instructed in purpose of OT Consult and plan of care. ASSESSMENT: Patient is a 79-year-old female referred to occupational therapy services with diagnosis of UTI, uretal calculus, esophageal abnormalty, hyperlipidemia, HTN, DACIA, hypothyroid, DVT prophylaxis. Pt had a fall recently and was also diagnosed with ischemic CVA with (L) hemiparesis. Patient presents with clinical signs and symptoms consistent with dx, as demonstrated by the [facility] impairment level findings: (L) side neglect, decreased gross and fine motor control of (L) UE, decreased functional activity tolerance, decreased functional mobility required for ADL/IADL performance. Impairments are contributing to the following functional limitations: Impairments in ADL/IADL and leisure activities, unable to (I) perform LE dressing, not able to perform LE bathing (I), requires vc for use of (L) UE, early stages of (L) side neglect. AMPAC score 17 Patient is assessed as a Moderate [id number] complexity based on the following: History: See above Examination: see functional limitations as noted above Presentation: Evolving Decision Making: AMPAC score 17 GOALS Goals x1 week 1. Transfers with FWW (S) 2. Dressing mod (I) with don and doffing (B) socks, (I) don and doffing hospital gown 3. Bathing seated position (I) UE with min (A) (B) LE 4. Toileting on toilet min (A) 5. Eating (I) PLAN OF CARE/TREATMENT PLAN: 1x/day, 5 days/ week x 1week Initiate Occupational Therapy Services for bathing, dressing, grooming, toileting, eating, transfer training. DISCHARGE RECOMMENDATIONS Based on pts current level of functional and demonstration of (L) side neglect pt will require (A) in order to perform her ADL/IADLs at this time. OT recommends that pt go to SNF for short term stay, if pt does return home she will require HH services and (A) in order to perform her ADLs/IADLs in the home setting. TREATMENT TIME/MINUTES/CODES [id number], [id number] Archana Feliciano OTR/[facility] [place], [place]
[2019-12-23] MEDS: Tamsulosin 0.4 MG CAPCR PO (07:51)
[2019-12-23] MEDS: Omeprazole 20 MG CAPCR PO (07:51)
[2019-12-23] MEDS: Venlafaxine 37.5 MG CAPCR 75 MG PO (07:52)
[2019-12-23] MEDS: Metoclopramide 10 MG TAB PO (07:52)
[2019-12-23] MEDS: Folic Acid 1 MG TAB PO (07:52)
[2019-12-23] MEDS: Multivitamin TAB 1 TAB PO (07:52)
[2019-12-23] MEDS: Aspirin 81 MG CHEW PO (07:52)
[2019-12-23] MEDS: Thiamine 100 MG TAB PO (07:52)
[2019-12-23] MEDS: Clopidogrel 75 MG TAB PO (07:53)
[2019-12-23] MEDS: Normal Saline 1,000 ML 85 ML IV (09:13)
--- NOTE | 2019-12-23 13:01 | PT.INTREAT ---
Date of service: 12/23/19 Time of Service: 13:01 PT Notes Visit Reasons: PYELONEPHRITIS POST OBSTRUCTIVE WITH URETEROLITHIA Inpatient Physical Therapy Treatment Note [facility] Date: 12/23/2019 PRECAUTIONS: Fall. Standard. Activity as tolerated. Left-sided hemiparesis. SUBJECTIVE: Patient denies headache at time of PT visit but did indicate that earlier this morning she had some minimal headache. Patient is agreeable to doing edge of bed activities and standing activities at bedside. She voices that she is able to read the writing on the white board in her room from her bed. She is agreeable to doing bed level exercises that were written for her. OBJECTIVE: Telemetry monitoring in place. Oropeza catheter in place. IV in the right UE. PAIN: None reported BED MOBILITY/TRANSFERS Supine to sit with HOB at 25 degrees standby assist with minimal verbal cueing for safe technique Sit to supine standby assist with minimal verbal cueing for safe technique Sit to stand minimal assist with minimal verbal cues needed for B hand placement, left hand is secured to the walker handle using ETHAN wraps Stand to sit minimal assist with minimal verbal cues needed for B hand placement, left hand is secured to the walker handle using ETHAN wraps Bed to chair minimal assist with minimal verbal cues needed for B hand placement, left hand is secured to the walker handle using ETHAN wraps Chair to bed minimal assist with minimal verbal cues needed for B hand placement, left hand is secured to the walker handle using ETHAN wraps GAIT: Patient tolerated level surface ambulation of 50 feet +60 feet +100 feet using utilizing front wheeled walker with full weightbearing requiring moderate assist of PT and wheelchair follow of [facility] Radha. 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 Left lateral push significant but is able to correct with verbal cueing for short while and then returns to increasing pushing on left with fatigue. NEURO RE-ED and THERA EX: Patient tolerated static and dynamic sitting balance and tolerance activities with weight bearing encouraged through the left upper extremity with the elbow extended and the fingers flat on the bed, minimal assist provided to facilitate elbow extension during weight shifting activities. Patient tolerated this for 15 minutes while performing lower extremity range of motion exercises consisting of long arc quads for 20?2, seated hip flexion 20?2, ankle pumps 20?2. Patient also performed shoulder flexion with hands clasped together for 10?2 and bringing clasped hands together forward for 10?2. Patient also stood up 3 times for 2 to 3 minutes each tolerating weight shifting right to left and facilitating trunk extension while standing statically with minimal assist of PT. 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 She does demonstrate significant sensorimotor recovery on the left UE and LE compared to yesterday. However she her gait pattern remains unsafe at this time which increases risk for falling. She is more motivated to participate in therapy today and denies headache. Plan of Care/Treatment Plan: 1-2x/day, 7 days/week x 1 week. Plan of care has been reviewed with the SPECIAL SERVICE REPRESENTATIVE providing the service under Physical Therapy direction. Initiate Physical Therapy intervention for strengthening, bed mobility, transfers, gait, stairs, balance training, use of assistive device. DISCHARGE RECOMMENDATIONS: Patient will benefit from half-way facility placement (or swing bed level 1) placement for continued skilled physical therapy services in order to progress mobility level, strength, and balance in preparation for a safe discharge to home. TREATMENT CODE/TIME: Session 1??9711 0 x 10 minutes, 25643 x15 minutes, and 49547 x 23 minutes beginning at 9:58 AM. Session 2??[id number] 0 x 53 minutes beginning at 13:01 PM.
--- NOTE | 2019-12-23 14:23 | W.SPEECHNOTE ---
Date of service: 12/23/19 Time of Service: 14:05 Speech Therapy Visit Note Note: Swallow Screen/Swallow Evaluation Attempted Pt was in bed sleeping upon arrival but easily awoken. ORTHO NURSE explained rationale for evaluation. Pt reports no difficulty with foods or fluids but that she feels very anxious at times (prior to doctors appts etc) and this causes her body to tense up which then feels like difficulty swallowing but she denies true dysphagia. Pt does have a h/o esophageal dysmotility and dilation She states she takes small bites and chews well since this. Discussed swallow evaluation procedure and other objective measures such as Barium Swallow study and Modified Barium Swallow study however pt stating she does not want any more procedures done and does not want to find out if anything is wrong. Pt declining food/fluids with ORTHO NURSE, requesting to shut off lights and go back to sleep. ORTHO NURSE informed Dr. Hu of the above. No further ORTHO NURSE needs at this time however marely/ to notify ORTHO NURSE if things change.
[2019-12-23 14:46] LABS: Vitamin D 25 Total 19.3 ng/ml (30-100)
--- NOTE | 2019-12-23 14:55 | CHAPLAIN ---
Charity was in bed when I visited. She shared some personal information, telling me that she lives alone in [place]. When I asked if she's lived alone a long time she said yes, and then said her three years ago. She talked about that being a difficult transition for her to living alone and we talked about how life isn't even the same after a spouse dies. She also said her brother, Humberto, to whom she was very close, a few weeks ago. Charity said she has the same thing that Humberto had, but not so bad. Humberto's service is scheduled for January 16, which is Charity's wedding anniverary date. She is not sure if she will go to the service. Charity said she and Humberto spent a lot of time together [place], and that he was a good man. We talked about how significant it is to lose a sibling, even when we're older. Charity said her life has been difficult lately and that she has had times of lows in her life, and that it seems to go like that. now She didn't identify what helps her through difficult times, but said she keeps going. Charity talked about the strong support she receives from her daughter, Kristy, who is an [employer] [facility] nurse. She relies on Kristy for transportation of any distance, but Charity said she will drive herself short distances, or just drive around because she likes to get out. she doesn't have friends how live nearby, she said, except for one neighbor. Her other daughter, and two grandchildren, live in [facility].
--- NOTE | 2019-12-23 15:56 | PCPN_ITS ---
Date of service: 12/23/19 Time of Service: 11:30 Assessment and Plan Assessment and plan (1) DNR (do not resuscitate): Status: Acute (2) DNI (do not intubate): Status: Acute (3) Thrombotic stroke involving right middle cerebral artery: Status: Acute Assessment and plan: She is being followed by Dr. Patel. Continue cardiac monitoring. Continue dual antiplatelet therapy as recommended by Dr. Patel. (4) Left hemiparesis: Status: Acute Assessment and plan: Related to acute CVA. (5) Bilateral kidney stones: Status: Acute Assessment and plan: She is being followed by Dr. Holman, continue current plan of care, below. (6) POLST (Physician Orders for Life-Sustaining Treatment): Status: Acute Assessment and plan: Form started with Dr. Brooke, completed today. She is clear that she is a DNR/DNI, she would not want a feeding tube and she has named Kristy Brown, her daughter, as her agent to make decisions for her if she is unable to do so. (7) Palliative care patient: Status: Chronic Assessment and plan: Charity is being treated for kidney stones with pyelone phritis, she has ureteral stents in place. The plan is for her to go to the OR with Dr. Holman for stone extraction next week. Unfortunately, she suffered a CVA 2 days ago. She has some residual left hemiparesis. She is gaining motor ability. She is working with physical therapy. She would benefit from continuing to be seen by palliative care. She will have outpatient follow-up scheduled for 2 to 3 months after her discharge home. Subjective Subjective Interval history since last seen: Charity reports that she is feeling better, she is gaining some motor abilities on her left side after the acute CVA. She started a COLST form with Dr. Brooke yesterday and indicated that she wished to be a DNR/DNI. We continued to discuss her wishes today. She has named her daughter, Kristy Brown, to make decisions for her if she is unable to do so. She does not want a feeding tube. She would prefer care directed toward her comfort. We completed the COLST form. We discussed her goals, she wants to return home, she knows that she needs physical therapy. She described how her at home 3 years ago, she believes he did it the right way. She would prefer to be at home when she dies. She was able to describe the plan for the short term. She has bilateral ureteral stents in place. She is being followed by Dr. Holman, urology. The plan will be for him to retrieve the stone next week. She denies pain at present. She is eating and drinking and tolerating her diet without nausea or vomiting. She denies shortness of breath, coughing, wheezing, chest pain/pressure, palpitations. She denies any other concerns. Exam Narrative Exam Narrative: General: Very pleasant female, laying in bed with HOB elevated. She is A&Ox3, answers questions appropriately. Calm and making jokes, does not appear to be in any distress. Neuro: A&Ox3, slight left nasolabial fold flatening, Lifts left arm against gravity 4/5 strength LUE, 4+/5 strength LLE. Right hand grasp slightly stronger than left. Skin: bruises to left upper arm distally, ? r/t fall. HEENT: Left pupil larger than right, EOMI, moist mucous membranes, slight left nasolabial fold flatening noted. Heart: Heart has regular rate and rhythm, no murmur appreciated Respiratory: Respirations appear even and unlabored, lung sounds clear bilaterally. Abdomen: +BS, abdomen soft, nontender on palpation, nondistended. Extremities: no edema BLE, faint pedal pulses bilaterally. Objective Objective Clinical Data: Abnormal lab results 12/22/19 12/23/19 12/23/19 Range/Units 06:40 06:30 06:30 RBC 3.50 L (4.00-5.20) m/cumm Hgb 11.2 L (12.0-15.5) g/dL Hct 33.4 L (36.0-46.0) % MCV 95.4 H (80-95) fL Creatinine 1.03 H (0.55-1.02) mg/dL 25-OH Vitamin D Total 19.3 L (30-100) ng/ml Vital Signs Temperature 37.4 C 12/23/19 11:09 Temperature Source Tympanic 12/23/19 11:09 Pulse 70 12/23/19 11:09 Pulse Rhythm Regular 12/23/19 14:25 Pulse 88 12/18/19 20:01 Respiratory Rate 17 12/23/19 11:09 Respiratory Effort Non-Labored 12/23/19 14:25 Respiratory Depth Normal 12/23/19 14:25 Respiratory Pattern Normal 12/23/19 14:25 Blood Pressure 152/76 H 12/23/19 11:09 Blood Pressure Mean 79 12/18/19 20:01 Blood Pressure Position Supine 12/18/19 15:15 Pulse Oximetry 96 12/23/19 11:09 Oxygen Delivery Method Room Air 12/23/19 11:09 Oxygen Flow Rate 0 12/23/19 11:09 Pain Level 0 12/23/19 11:09 Comment 12/22/19 19:42 Intake & Output 12/22/19 12/23/19 12/23/19 23:59 11:59 23:59 Intake Total 1530 / 2130 1227.417 / 1227.417 Output Total 1300 / 2425 1550 / 1550 Balance 230 / -295 -322.583 / -322.583 Weight 77.2 kg Intake: IV 1050 / 1050 987.417 / 987.417 Oral 480 / 1080 240 / 240 Output: Urine 1300 / 2425 1550 / 1550 Other: Urine Color Light Rose Light Rose Urine Appearance Clear Clear Clear Stool Size Large Large Stool Characteristics Soft Soft Formed Formed Brown Brown Laboratory Results WBC 6.14 k/cumm (4.4-10.8) 12/23/19 06:30 RBC 3.50 m/cumm (4.00-5.20) L 12/23/19 06:30 Hgb 11.2 g/dL (12.0-15.5) L 12/23/19 06:30 Hct 33.4 % (36.0-46.0) L 12/23/19 06:30 MCV 95.4 fL (80-95) H 12/23/19 06:30 MCH 32.0 pg (27.0-33.0) 12/23/19 06:30 MCHC 33.5 g/dL (32.0-36.0) 12/23/19 06:30 RDW 13.3 % (11.7-14.6) 12/23/19 06:30 Plt Count 238 x1000/uL (130-400) 12/23/19 06:30 MPV 10.7 fL (8.0-11.0) 12/23/19 06:30 Immature Gran % 0.8 % 12/23/19 06:30 Neutrophils % 63.5 12/23/19 06:30 Lymphocytes % 19.5 12/23/19 06:30 Monocytes % 10.7 12/23/19 06:30 Eosinophils % 5.2 12/23/19 06:30 Basophils % 0.3 12/23/19 06:30 Absolute Neutrophils 3.89 k/cumm (1.2-6.7) 12/23/19 06:30 Absolute Lymphocytes 1.20 k/cumm (1.2-3.4) 12/23/19 06:30 Absolute Monocytes 0.66 k/cumm (0.11-0.7) 12/23/19 06:30 Absolute Eosinophils 0.32 k/cumm (0.0-0.7) 12/23/19 06:30 Absolute Basophils 0.02 k/cumm (0.0-0.2) 12/23/19 06:30 Sodium 138 mmol/L (136-145) 12/23/19 06:30 Potassium 3.9 mmol/L (3.5-5.1) 12/23/19 06:30 Chloride 105 mmol/L (98-107) 12/23/19 06:30 Carbon Dioxide 27.5 mmol/L (21.0-32.0) 12/23/19 06:30 Anion Gap 5.5 mmol/L (3-11) 12/23/19 06:30 BUN 16 mg/dL (7-18) 12/23/19 06:30 Creatinine 1.03 mg/dL (0.55-1.02) H 12/23/19 06:30 Estimated GFR/1.73 m2 51.82 (mL/min/1.73m2) 12/23/19 06:30 Glucose 105 mg/dL (74-106) 12/23/19 06:30 Hemoglobin A1c 6.4 % (3.8-5.6) H 12/22/19 06:40 Calcium 8.9 mg/dL (8.5-10.1) 12/23/19 06:30 Magnesium 2.0 mg/dL (1.8-2.4) 12/23/19 06:30 Total Bilirubin 0.3 mg/dL (0.2-1.0) 12/19/19 06:28 AST 49 U/L (15-37) H 12/19/19 06:28 ALT 44 U/L (14-59) 12/19/19 06:28 Alkaline Phosphatase 70 U/L (46-116) 12/19/19 06:28 C-Reactive Protein 9.70 mg/dL (0.0-0.3) H 12/22/19 06:40 Total Protein 6.5 g/dL (6.4-8.2) 12/19/19 06:28 Albumin 2.7 g/dL (3.4-5.0) L 12/19/19 06:28 Triglycerides 155 mg/dL (<150) H 12/22/19 06:40 Total Cholesterol 141 mg/dL (<200) 12/22/19 06:40 LDL Cholesterol, Calc 87 mg/dL (<100) 12/22/19 06:40 HDL Cholesterol 23 mg/dL (40-60) L 12/22/19 06:40 25-OH Vitamin D Total 19.3 ng/ml (30-100) L 12/22/19 06:40 Procalcitonin 8.4 ng/mL 12/22/19 06:40 TSH 2.74 uIU/mL (0.36-3.74) 12/18/19 15:30 Urine Color Yellow (Yellow) 12/18/19 17:00 Urine Clarity Clear (Clear) 12/18/19 17:00 Urine pH 7.5 (5-8) 12/18/19 17:00 Ur Specific [place] 1.020 (1.005-1.025) 12/18/19 17:00 Urine Protein 100 mg/dL (Negative) H 12/18/19 17:00 Urine Ketones Negative mg/dL (Negative) 12/18/19 17:00 Urine Blood Moderate (Negative) H 12/18/19 17:00 Urine Nitrite Negative (Negative) 12/18/19 17:00 Urine Bilirubin Negative (Negative) 12/18/19 17:00 Urine Urobilinogen 0.2 EU/dL (Up TO 0.2) 12/18/19 17:00 Ur Leukocyte Esterase Large (Negative) H 12/18/19 17:00 Urine RBC Negative HPF (0-2) 12/18/19 17:00 Urine WBC >50 HPF (0-5) H 12/18/19 17:00 Ur Epithelial Cells Negative HPF (Negative) 12/18/19 17:00 Urine Crystals Negative HPF (Negative) 12/18/19 17:00 Urine Bacteria Negative HPF (Negative) 12/18/19 17:00 Urine Mucus Negative (Negative) 12/18/19 17:00 Urine Other Few renal (Negative) 12/18/19 17:00 Ur Culture Indicated? Yes 12/18/19 17:00 Urine Glucose Negative mg/dL (Negative) 12/18/19 17:00 Salicylates Cancelled 12/20/19 09:14 COVID-19 PCR Negative (Negative) 12/18/19 19:46 Nasopharyn COVID-19 PCR Not Applicable 12/18/19 19:46 Ref Test Perform Site [facility] lab 12/18/19 19:46
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
--- NOTE | 2019-12-23 17:44 | W.PM.PROGNOT ---
Date of Service Date of service: 12/23/19 Time of Service: 17:44 Assessment and Plan Assessment and plan (1) Ischemic cerebrovascular accident (CVA): Status: Acute Assessment and plan: Continue asa 81 mg PO daily, plavix, simvastatin 20 mg PO qhs. Continue to monitor on tele. Continue PT/OT. However, patient was not interested in a swallow eval. Plavix may have to be discontinued in light of upcoming stone retrieval - awaiting Dr Holman's recommendations. (2) HTN (hypertension): Status: Chronic Assessment and plan: D/c IVF. Qualifiers: Hypertension type: essential hypertension Qualified Code(s): I10 - Essential (primary) hypertension (3) Proteus septicemia: Status: Acute Assessment and plan: Due to proteus UTI complicated by obstructive nephrolithiasis on R and nonobstructive on left, s/p cysto/B stent placement by Dr Holman on 12/18/2019. Repeat blood cultures negative. Case discussed with [facility] as well as with Dr Holman: continue IV ceftriaxone 2 grams through stone removal, planned for next week. However, we need to decide re where the surgery will be and how long plavix will need to be held for. (4) Ureteral calculus: Status: Acute Assessment and plan: Bilateral. As above (5) Hyperlipidemia: Status: Acute Assessment and plan: Continue simvastatin Qualifiers: Hyperlipidemia type: unspecified Qualified Code(s): E78.5 - Hyperlipidemia, unspecified (6) Esophageal abnormality: Status: Chronic Assessment and plan: Patient has a history of esophageal dysmotility and esophageal stricture, previously requiring dilatation. It appears that in July of 2019, there was a dilatation performed at [facility]. It is unclear if the patient's dysphagia is oropharyngeal or esophageal-phase. In addition, she has a new R facial droop. Patient was not interested in speech therapy/swallowing evaluation today. (7) Wenckebach block: Status: Acute Assessment and plan: While asleep, asymptomatic. Benign rhythm. Continue to monitor on tele. (8) DACIA (acute kidney injury): Status: Resolved Assessment and plan: Multifactorial - obstructive and due to sepsis. D/c IVF. Recheck Cr in am (9) DVT prophylaxis: Status: Acute Assessment and plan: Heparin SC (10) Discharge planning issues: Status: Acute Assessment and plan: DNR/DNI Palliative care saw patient for COLST form completion Ultimately, further inpatient course depends on anesthesia/urology decision as to where the patient should have her stone retrieval. Subjective Subjective Interval history since last seen: Ms Joyner continues to report LUE weakness. Denies headache now, but states had a little one earlier. Denies dizziness, chest pain, shortness of breath, nausea, numbness/tingling. Was not interested in participating in a swallow eval or a modified barrium swallow. We talked about the importance of walking/exercising - she verbalized understanding. Exam Narrative Exam Narrative: General: Very pleasant obese female, laying comfortably in bed, A&Ox3 Neuro: A&Ox3, slight R nasolabial fold flattening, 4/5 strength LUE, 4+/5 strength LLE HEENT: EOMI, MMM, R facial droop Heart: RRR Lungs: CTAB Abdomen: soft, nontender, nondistended Extremities: no e/c/c BLE's Objective Objective Clinical Data: Abnormal lab results 12/22/19 12/23/19 12/23/19 Range/Units 06:40 06:30 06:30 RBC 3.50 L (4.00-5.20) m/cumm Hgb 11.2 L (12.0-15.5) g/dL Hct 33.4 L (36.0-46.0) % MCV 95.4 H (80-95) fL Creatinine 1.03 H (0.55-1.02) mg/dL 25-OH Vitamin D Total 19.3 L (30-100) ng/ml Vital Signs Temperature 37.2 C 12/23/19 15:30 Temperature Source Tympanic 12/23/19 15:30 Pulse 68 12/23/19 15:30 Pulse Rhythm Regular 12/23/19 14:25 Pulse 88 12/18/19 20:01 Respiratory Rate 18 12/23/19 15:30 Respiratory Effort Non-Labored 12/23/19 14:25 Respiratory Depth Normal 12/23/19 14:25 Respiratory Pattern Normal 12/23/19 14:25 Blood Pressure 164/90 H 12/23/19 15:30 Blood Pressure Mean 79 12/18/19 20:01 Blood Pressure Position Supine 12/18/19 15:15 Pulse Oximetry 96 12/23/19 15:30 Oxygen Delivery Method Room Air 12/23/19 15:30 Oxygen Flow Rate 0 12/23/19 15:30 Pain Level 0 12/23/19 15:30 Comment 12/22/19 19:42 Intake & Output 12/22/19 12/23/19 12/23/19 23:59 11:59 23:59 Intake Total 1530 / 2130 1227.417 / 1227.417 Output Total 1300 / 2425 1550 / 1550 Balance 230 / -295 -322.583 / -322.583 Weight 77.2 kg Intake: IV 1050 / 1050 987.417 / 987.417 Oral 480 / 1080 240 / 240 Output: Urine 1300 / 2425 1550 / 1550 Other: Urine Color Light Rose Light Rose Urine Appearance Clear Clear Clear Stool Size Large Large Stool Characteristics Soft Soft Formed Formed Brown Brown Laboratory Results WBC 6.14 k/cumm (4.4-10.8) 12/23/19 06:30 RBC 3.50 m/cumm (4.00-5.20) L 12/23/19 06:30 Hgb 11.2 g/dL (12.0-15.5) L 12/23/19 06:30 Hct 33.4 % (36.0-46.0) L 12/23/19 06:30 MCV 95.4 fL (80-95) H 12/23/19 06:30 MCH 32.0 pg (27.0-33.0) 12/23/19 06:30 MCHC 33.5 g/dL (32.0-36.0) 12/23/19 06:30 RDW 13.3 % (11.7-14.6) 12/23/19 06:30 Plt Count 238 x1000/uL (130-400) 12/23/19 06:30 MPV 10.7 fL (8.0-11.0) 12/23/19 06:30 Immature Gran % 0.8 % 12/23/19 06:30 Neutrophils % 63.5 12/23/19 06:30 Lymphocytes % 19.5 12/23/19 06:30 Monocytes % 10.7 12/23/19 06:30 Eosinophils % 5.2 12/23/19 06:30 Basophils % 0.3 12/23/19 06:30 Absolute Neutrophils 3.89 k/cumm (1.2-6.7) 12/23/19 06:30 Absolute Lymphocytes 1.20 k/cumm (1.2-3.4) 12/23/19 06:30 Absolute Monocytes 0.66 k/cumm (0.11-0.7) 12/23/19 06:30 Absolute Eosinophils 0.32 k/cumm (0.0-0.7) 12/23/19 06:30 Absolute Basophils 0.02 k/cumm (0.0-0.2) 12/23/19 06:30 Sodium 138 mmol/L (136-145) 12/23/19 06:30 Potassium 3.9 mmol/L (3.5-5.1) 12/23/19 06:30 Chloride 105 mmol/L (98-107) 12/23/19 06:30 Carbon Dioxide 27.5 mmol/L (21.0-32.0) 12/23/19 06:30 Anion Gap 5.5 mmol/L (3-11) 12/23/19 06:30 BUN 16 mg/dL (7-18) 12/23/19 06:30 Creatinine 1.03 mg/dL (0.55-1.02) H 12/23/19 06:30 Estimated GFR/1.73 m2 51.82 (mL/min/1.73m2) 12/23/19 06:30 Glucose 105 mg/dL (74-106) 12/23/19 06:30 Hemoglobin A1c 6.4 % (3.8-5.6) H 12/22/19 06:40 Calcium 8.9 mg/dL (8.5-10.1) 12/23/19 06:30 Magnesium 2.0 mg/dL (1.8-2.4) 12/23/19 06:30 Total Bilirubin 0.3 mg/dL (0.2-1.0) 12/19/19 06:28 AST 49 U/L (15-37) H 12/19/19 06:28 ALT 44 U/L (14-59) 12/19/19 06:28 Alkaline Phosphatase 70 U/L (46-116) 12/19/19 06:28 C-Reactive Protein 9.70 mg/dL (0.0-0.3) H 12/22/19 06:40 Total Protein 6.5 g/dL (6.4-8.2) 12/19/19 06:28 Albumin 2.7 g/dL (3.4-5.0) L 12/19/19 06:28 Triglycerides 155 mg/dL (<150) H 12/22/19 06:40 Total Cholesterol 141 mg/dL (<200) 12/22/19 06:40 LDL Cholesterol, Calc 87 mg/dL (<100) 12/22/19 06:40 HDL Cholesterol 23 mg/dL (40-60) L 12/22/19 06:40 25-OH Vitamin D Total 19.3 ng/ml (30-100) L 12/22/19 06:40 Procalcitonin 8.4 ng/mL 12/22/19 06:40 TSH 2.74 uIU/mL (0.36-3.74) 12/18/19 15:30 Urine Color Yellow (Yellow) 12/18/19 17:00 Urine Clarity Clear (Clear) 12/18/19 17:00 Urine pH 7.5 (5-8) 12/18/19 17:00 Ur Specific [place] 1.020 (1.005-1.025) 12/18/19 17:00 Urine Protein 100 mg/dL (Negative) H 12/18/19 17:00 Urine Ketones Negative mg/dL (Negative) 12/18/19 17:00 Urine Blood Moderate (Negative) H 12/18/19 17:00 Urine Nitrite Negative (Negative) 12/18/19 17:00 Urine Bilirubin Negative (Negative) 12/18/19 17:00 Urine Urobilinogen 0.2 EU/dL (Up TO 0.2) 12/18/19 17:00 Ur Leukocyte Esterase Large (Negative) H 12/18/19 17:00 Urine RBC Negative HPF (0-2) 12/18/19 17:00 Urine WBC >50 HPF (0-5) H 12/18/19 17:00 Ur Epithelial Cells Negative HPF (Negative) 12/18/19 17:00 Urine Crystals Negative HPF (Negative) 12/18/19 17:00 Urine Bacteria Negative HPF (Negative) 12/18/19 17:00 Urine Mucus Negative (Negative) 12/18/19 17:00 Urine Other Few renal (Negative) 12/18/19 17:00 Ur Culture Indicated? Yes 12/18/19 17:00 Urine Glucose Negative mg/dL (Negative) 12/18/19 17:00 Salicylates Cancelled 12/20/19 09:14 COVID-19 PCR Negative (Negative) 12/18/19 19:46 Nasopharyn COVID-19 PCR Not Applicable 12/18/19 19:46 Ref Test Perform Site [facility] lab 12/18/19 19:46 Brain MRI: Small area of acute or subacute an infarction in the periventricular white matter of the posterior right frontal lobe. Brain MRA: Normal MRA examination of the [place]. Neck MRA: Somewhat limited exam due to pulsation artifact and vascular tortuosity. No significant plaque or stenosis is visible..
--- NOTE | 2019-12-23 17:55 | CMPROGNOTE_ITS ---
- If Service Date Differs Date of service: 12/23/19 Time of Service: 17:55 Care Management Progress Note S/O: Charity was sitting up in her chair when CM met with her. She reported that she had a 'busy day'. 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 She met with Palliative care today and completed a new COLST form, which she requested her daughter, Kristy look over for her as well. She reported that she was feeling tired, but improving since she arrived. CM will continue to follow. A: Charity is a 79 year old female admitted to [facility] on 12/18/19 for Obstructing ureteral stone on the right with hydronephrosis and possible pyelonephritis. P: Anticipate Charity will return home with continued support from her daughter and family once medically cleared. Evaluations needed to determine additional support/services upon discharge. She will be transported by family via private vehicle, when ready. She will follow up with her PCP, and Urology, as recommended. CM will continue to follow and support discharge planning considerations.
[2019-12-23] MEDS: cefTRIAXone 2 GM/50 ML BAG IVPB (20:27)
[2019-12-23] MEDS: Normal Saline Flush 10 ML SYR IVP (20:27)
[2019-12-23] MEDS: Oxybutynin-CR 5 MG TABCR PO (21:52)
[2019-12-23] MEDS: Simvastatin 20 MG TAB PO (21:52)
[2019-12-24] VITALS (7 sets, daily range): BP systolic 114–185; BP diastolic 66–113; PULSE 62–86; RESP 17–18; TEMP 36.6–37.2; O2SAT 92–97
[2019-12-24] MEDS: Levothyroxine 50 MCG TAB PO (06:02)
[2019-12-24] MEDS: Heparin 5,000 UNITS/ML VIAL 5000 UNITS SC ×3 (06:02→21:57)
[2019-12-24 07:04] LABS: Abs Immature Grans 0.12 k/cumm (0.0-0.09); Absolute Basophil Count 0.03 k/cumm (0.0-0.2); Absolute Eosinophil Count 0.29 k/cumm (0.0-0.7); Absolute Lymphocyte Count 1.46 k/cumm (1.2-3.4); Basophils % 0.4; Eosinophils % 4.3; HCT 37.5 % (36.0-46.0); HGB 12.6 g/dL (12.0-15.5); Immature Grans % 1.8 %; Lymphocytes % 21.8; Mean Corp. HGB Concentration 33.6 g/dL (32.0-36.0); Mean Corpuscular Volume 95.2 fL (80-95); Mean Platelet Volume 10.8 fL (8.0-11.0); Monocytes % 10.4; Neutrophils % 61.3; Platelet Count 285 x1000/uL (130-400); RBC 3.94 m/cumm (4.00-5.20); RBC Distribution Width 13.4 % (11.7-14.6)
[2019-12-24 07:13] LABS: Anion Gap 9.5 mmol/L (3-11); BUN 17 mg/dL (7-18); C-Reactive Protein 3.55 mg/dL (0.0-0.3); CO2 26.5 mmol/L (21.0-32.0); CREATININE 1.07 mg/dL (0.55-1.02); Calcium 9.6 mg/dL (8.5-10.1); Chloride 101 mmol/L (98-107); Glucose 119 mg/dL (74-106); Magnesium 1.8 mg/dL (1.8-2.4); Potassium 3.8 mmol/L (3.5-5.1); Sodium 137 mmol/L (136-145)
[2019-12-24] MEDS: Metoclopramide 10 MG TAB PO (08:19)
[2019-12-24] MEDS: Thiamine 100 MG TAB PO (08:19)
[2019-12-24] MEDS: Multivitamin TAB 1 TAB PO (08:20)
[2019-12-24] MEDS: Venlafaxine 37.5 MG CAPCR 75 MG PO (08:20)
[2019-12-24] MEDS: Omeprazole 20 MG CAPCR PO (08:20)
[2019-12-24] MEDS: Folic Acid 1 MG TAB PO (08:20)
[2019-12-24] MEDS: Aspirin 81 MG CHEW PO (08:20)
[2019-12-24] MEDS: Clopidogrel 75 MG TAB PO (08:20)
[2019-12-24] MEDS: Tamsulosin 0.4 MG CAPCR PO (08:20)
--- NOTE | 2019-12-24 08:22 | PDOC.CMPRO ---
Care Management Progress Note S/O: Charity remains pleasant in interaction. She remains on Tele, declined a swallow eval and will continue on IV ceftriaxone until next week when she has a planned stone retrieval with Dr. Holman, CM continues to follow. She was aware of her treatment plan, and stated she was awaiting determination of whether the planned surgical intervention would take place at [facility], or if she would be deemed high risk due to concern for CVA risk. CM continues to follow. A: Charity is a 79 year old female admitted to [facility] on 12/18/19 for Obstructing ureteral stone on the right with hydronephrosis and possible pyelonephritis. P: Charity will return home with continued support from her daughter and family once medically cleared. Evaluations needed to determine additional support/services upon discharge. She will be transported by family via private vehicle, when ready. She will follow up with her PCP, and Urology, as recommended. CM will continue to follow and support discharge planning considerations.
--- NOTE | 2019-12-24 11:50 | W.NUTRFU ---
Date of service: 12/24/19 Time of Service: 11:50 Nutritional Follow up NOTE: Met with Charity today to review optimal diet to avoid diabetes, as with elevated A1C. Reviewed balanced meal options and provided literature on how to follow diet that is high in complex carbs, low in simple carbs and meals balanced with adequate protein and fiber. She was receptive to education and is willing to make some diet changes for improved health. Initial plan is for her to reduce her fruit juice and popcorn intake and to eat 3 meals daily and incorporate exercise as allowed by MD. Appears to be tolerating current meal plan and meeting nutrient needs. Time Spent in Nutritional Counseling and Treatment: 15 min spent face to face
--- NOTE | 2019-12-24 12:45 | PT.INTREAT ---
Date of service: 12/24/19 Time of Service: 12:45 PT Notes Visit Reasons: PYELONEPHRITIS POST OBSTRUCTIVE WITH URETEROLITHIA Inpatient Physical Therapy Treatment Note [facility] Date: 12/24/2019 PRECAUTIONS: Fall. Standard. Activity as tolerated. Left-sided hemiparesis. SUBJECTIVE: Charity states I want to get this hand (referring to her left)moving so I can play the piano again! She wonders though why her belly seems to be increasing in size since she got to the hospital. She expressed how sad she is about having to go somewhere else to have her stone removed. She remembers what the doctor said about having a possibility of another stroke during surgery so she needed to go somewhere else. She states If I have another stroke, they just need to let me go. She goes on to ask this PT where she could get a mirror so she can inspect her face. Per nurse Savita, patient's left knee buckled last night. OBJECTIVE: Telemetry monitoring in place. Oropeza catheter in place. L facial drooping observed. PAIN: None reported. Denies headache. BED MOBILITY/TRANSFERS Supine to sit with HOB at 30 degrees contact-guard with minimal verbal cueing for safe technique Sit to supine contact-guard assist with minimal verbal cueing for safe technique Sit to stand contact-guard assist with minimal verbal cues needed for B hand placement, left hand is secured to the walker handle using ETHAN wraps Stand to sit contact-guard assist with minimal verbal cues needed for B hand placement, left hand is secured to the walker handle using ETHAN wraps Bed to chair contact-guard assist with minimal verbal cues needed for B hand placement, left hand is secured to the walker handle using TEHAN wraps Chair to bed contact-guard assist with minimal verbal cues needed for B hand placement, left hand is secured to the walker handle using ETHAN wraps GAIT: Patient tolerated level surface ambulation of 100 feet +120 feet using front wheeled walker with full weigh bearing requiring moderate assist of PT and wheelchair follow of TELEPHONE QUOTATION CLERK Melquiades. Patient exhibited increasing trunk lean to L which needed TELEPHONE QUOTATION CLERK Melquiades to support patient's right side and have TELEPHONE QUOTATION CLERK Chad follow with wheelchair. Active forge operator remains diminished requiring use of ETHAN wraps to secure left hand onto left walker handle. Decreased dorsiflexion on L. Increased inversion on L needing verbal cueing to increase L knee and hip flexion for safe gait pattern. NEURO RE-ED and THERA EX: Patient continues to tolerate static and dynamic sitting balance and tolerance activities with weight bearing encouraged through the left upper extremity with the elbow extended and the fingers flat on the edge of bed, minimal assist provided to facilitate elbow extension during weight shifting activities. Patient tolerated this for 15 minutes while performing lower extremity range of motion exercises consisting of long arc quads for 10?2, seated hip flexion 10?2, ankle pumps 20?2. Patient also performed shoulder flexion with hands clasped together for 10?2, bringing clasped hands together forward for 10?2, clasped hands with diagonal chop pattern to R x 10 and to L x 10. Patient also stood up 3 times for 2 minutes for the first and 5 minutes for the second trial now more able to tolerate weight shifting right to left and facilitating trunk extension while standing with minimal assist of PT. 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 Her gait pattern remains unsafe which increases risk for falling. She required motivation to participate in therapy today but was cheerful later during the afternoon session. She continues to demonstrate impairments and strength, range of motion, and mobility level requiring skilled physical therapy services. Plan of Care/Treatment Plan: 1-2x/day, 7 days/week x 1 week. Plan of care has been reviewed with the INTERNATIONAL FLIGHT ATTENDANT providing the service under Physical Therapy direction. Continue with physical Therapy intervention for strengthening, bed mobility, transfers, gait, stairs, balance training, use of assistive device. DISCHARGE RECOMMENDATIONS: Patient will benefit from retirement facility placement (or swing bed level 1) placement for continued skilled physical therapy services in order to progress mobility level, strength, and balance in preparation for a safe discharge to home. TREATMENT CODE/TIME: Session 1??66586 x 15 minutes, [id number] x 15 minutes, and 09671 x 16 minutes beginning at 9:03 AM. Session 2??[id number] x 30 minutes beginning at 12:45 PM.
--- NOTE | 2019-12-24 13:27 | PGE_ITS ---
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 We went ahead and canceled her procedure for Friday. I enter imaging pushed down to [facility] and asked for an urgent referral by the urology team to see if and w hen they would be agreeable to surgically treat her stones. I specifically asked them to weigh in on antibiotic coverage as well as if/when we would need to hold her anticoagulants. It may take a few days to get a response as I would expect urology would need to consult with anesthesia and neurology before coming up with a final answer. Subjective Subjective Interval history since last seen: Chief complaint: Bilateral kidney stones The patient is not having any fevers or flank pain, but she did developed a left sided weakness from an apparent thrombotic stroke involving the right middle cerebral artery. She is now on Plavix and aspirin. We had originally planned on bringing her back to the operating room on December 26 for ureteroscopy and holmium laser lithotripsy of her stones. In discussing the situation with our anesthesia providers, given the recent stroke, they would feel much more comfortable if any anesthetic be given to her and a larger tertiary care center rather than here at a small critical [facility]. Exam Narrative Exam Narrative: She does not look septic or toxic Her Oropeza catheter has clear urine Objective Objective Clinical Data: Abnormal lab results 12/22/19 12/24/19 12/24/19 Range/Units 06:40 06:30 06:30 RBC 3.94 L (4.00-5.20) m/cumm MCV 95.2 H (80-95) fL Creatinine 1.07 H (0.55-1.02) mg/dL Glucose 119 H (74-106) mg/dL C-Reactive Protein 3.55 H (0.0-0.3) mg/dL 25-OH Vitamin D Total 19.3 L (30-100) ng/ml Vital Signs Temperature 36.9 C 12/24/19 11:15 Temperature Source Tympanic 12/24/19 11:15 Pulse 78 12/24/19 11:15 Pulse Rhythm Regular 12/24/19 08:20 Pulse 88 05/23/20 20:01 Respiratory Rate 18 12/24/19 11:15 Respiratory Effort 12/24/19 08:20 Respiratory Depth Normal 12/24/19 08:20 Respiratory Pattern Normal 12/24/19 08:20 Blood Pressure 185/113 H 12/24/19 11:15 Blood Pressure Mean 79 12/18/19 20:01 Blood Pressure Position Supine 12/18/19 15:15 Pulse Oximetry 97 12/24/19 11:15 Oxygen Delivery Method Room Air 12/24/19 11:15 Oxygen Flow Rate 0 12/24/19 11:15 Pain Level 0 12/24/19 11:15 Comment 12/23/19 23:53 Intake & Output 12/23/19 12/24/19 12/24/19 23:59 11:59 23:59 Intake Total 240 / 1467.417 Output Total 450 / 1999 850 / 850 Balance -210 / -532.583 -850 / -850 Weight 77.5 kg Intake: Oral 240 / 480 Output: Urine 450 / 1999 850 / 850 Other: Urine Color Pale Straw Yellow Urine Appearance Clear Clear Stool Size Moderate Stool Characteristics Soft Laboratory Results WBC 6.70 k/cumm (4.4-10.8) 12/24/19 06:30 RBC 3.94 m/cumm (4.00-5.20) L 12/24/19 06:30 Hgb 12.6 g/dL (12.0-15.5) 12/24/19 06:30 Hct 37.5 % (36.0-46.0) 12/24/19 06:30 MCV 95.2 fL (80-95) H 12/24/19 06:30 MCH 32.0 pg (27.0-33.0) 12/24/19 06:30 MCHC 33.6 g/dL (32.0-36.0) 12/24/19 06:30 RDW 13.4 % (11.7-14.6) 12/24/19 06:30 Plt Count 285 x1000/uL (130-400) 12/24/19 06:30 MPV 10.8 fL (8.0-11.0) 12/24/19 06:30 Immature Gran % 1.8 % 12/24/19 06:30 Neutrophils % 61.3 12/24/19 06:30 Lymphocytes % 21.8 12/24/19 06:30 Monocytes % 10.4 12/24/19 06:30 Eosinophils % 4.3 12/24/19 06:30 Basophils % 0.4 12/24/19 06:30 Absolute Neutrophils 4.10 k/cumm (1.2-6.7) 12/24/19 06:30 Absolute Lymphocytes 1.46 k/cumm (1.2-3.4) 12/24/19 06:30 Absolute Monocytes 0.70 k/cumm (0.11-0.7) 12/24/19 06:30 Absolute Eosinophils 0.29 k/cumm (0.0-0.7) 12/24/19 06:30 Absolute Basophils 0.03 k/cumm (0.0-0.2) 12/24/19 06:30 Sodium 137 mmol/L (136-145) 12/24/19 06:30 Potassium 3.8 mmol/L (3.5-5.1) 12/24/19 06:30 Chloride 101 mmol/L (98-107) 12/24/19 06:30 Carbon Dioxide 26.5 mmol/L (21.0-32.0) 12/24/19 06:30 Anion Gap 9.5 mmol/L (3-11) 12/24/19 06:30 BUN 17 mg/dL (7-18) 12/24/19 06:30 Creatinine 1.07 mg/dL (0.55-1.02) H 12/24/19 06:30 Estimated GFR/1.73 m2 49.60 (mL/min/1.73m2) 12/24/19 06:30 Glucose 119 mg/dL (74-106) H 12/24/19 06:30 Hemoglobin A1c 6.4 % (3.8-5.6) H 12/22/19 06:40 Calcium 9.6 mg/dL (8.5-10.1) 12/24/19 06:30 Magnesium 1.8 mg/dL (1.8-2.4) 12/24/19 06:30 Total Bilirubin 0.3 mg/dL (0.2-1.0) 12/19/19 06:28 AST 49 U/L (15-37) H 12/19/19 06:28 ALT 44 U/L (14-59) 12/19/19 06:28 Alkaline Phosphatase 70 U/L (46-116) 12/19/19 06:28 C-Reactive Protein 3.55 mg/dL (0.0-0.3) H 12/24/19 06:30 Total Protein 6.5 g/dL (6.4-8.2) 12/19/19 06:28 Albumin 2.7 g/dL (3.4-5.0) L 12/19/19 06:28 Triglycerides 155 mg/dL (<150) H 12/22/19 06:40 Total Cholesterol 141 mg/dL (<200) 12/22/19 06:40 LDL Cholesterol, Calc 87 mg/dL (<100) 12/22/19 06:40 HDL Cholesterol 23 mg/dL (40-60) L 12/22/19 06:40 25-OH Vitamin D Total 19.3 ng/ml (30-100) L 12/22/19 06:40 Procalcitonin 8.4 ng/mL 12/22/19 06:40 TSH 2.74 uIU/mL (0.36-3.74) 12/18/19 15:30 Urine Color Yellow (Yellow) 12/18/19 17:00 Urine Clarity Clear (Clear) 12/18/19 17:00 Urine pH 7.5 (5-8) 12/18/19 17:00 Ur Specific [place] 1.020 (1.005-1.025) 12/18/19 17:00 Urine Protein 100 mg/dL (Negative) H 12/18/19 17:00 Urine Ketones Negative mg/dL (Negative) 12/18/19 17:00 Urine Blood Moderate (Negative) H 12/18/19 17:00 Urine Nitrite Negative (Negative) 12/18/19 17:00 Urine Bilirubin Negative (Negative) 12/18/19 17:00 Urine Urobilinogen 0.2 EU/dL (Up TO 0.2) 12/18/19 17:00 Ur Leukocyte Esterase Large (Negative) H 12/18/19 17:00 Urine RBC Negative HPF (0-2) 12/18/19 17:00 Urine WBC >50 HPF (0-5) H 12/18/19 17:00 Ur Epithelial Cells Negative HPF (Negative) 12/18/19 17:00 Urine Crystals Negative HPF (Negative) 12/18/19 17:00 Urine Bacteria Negative HPF (Negative) 12/18/19 17:00 Urine Mucus Negative (Negative) 12/18/19 17:00 Urine Other Few renal (Negative) 12/18/19 17:00 Ur Culture Indicated? Yes 12/18/19 17:00 Urine Glucose Negative mg/dL (Negative) 12/18/19 17:00 Salicylates Cancelled 12/20/19 09:14 COVID-19 PCR Negative (Negative) 12/18/19 19:46 Nasopharyn COVID-19 PCR Not Applicable 12/18/19 19:46 Ref Test Perform Site [facility] lab 12/18/19 19:46
--- NOTE | 2019-12-24 15:07 | PGE_ITS ---
Date of Service Date of service: 12/24/19 Time of Service: 15:07 Assessment and Plan Assessment and plan (1) Ischemic cerebrovascular accident (CVA): Status: Acute Assessment and plan: Continue asa 81 mg PO daily, plavix, simvastatin 20 mg PO qhs. Reintroduce ryan-i. Continue to monitor on tele. Will need residential cardiac monitoring. Continue PT/OT. Patient was not interested in a swallow eval. Plavix may have to be discontinued in light of upcoming stone retrieval - awaiting Dr Holman's recommendations (we should know later today). (2) HTN (hypertension): Status: Chronic Assessment and plan: Resume lisinopril 5 mg PO daily. Qualifiers: Hypertension type: essential hypertension Qualified Code(s): I10 - Essential (primary) hypertension (3) Proteus septicemia: Status: Acute Assessment and plan: Due to proteus UTI complicated by obstructive nephrolithiasis on R and nonobstructive on left, s/p cysto/B stent placement by Dr Holman on 12/18/2019. Repeat blood cultures negative. Case discussed with [facility] as well as with Dr Holman: continue IV ceftriaxone 2 grams through stone removal, planned for next week - will have to be at [facility], but when is unclear at this time. We are awaiting further information. (4) Ureteral calculus: Status: Acute Assessment and plan: Bilateral. As above (5) Hyperlipidemia: Status: Acute Assessment and plan: Continue simvastatin Qualifiers: Hyperlipidemia type: unspecified Qualified Code(s): E78.5 - Hyperlipidemia, unspecified (6) Esophageal abnormality: Status: Chronic Assessment and plan: Patient has a history of esophageal dysmotility and esophageal stricture, previously requiring dilatation. It appears that in July of 2019, there was a dilatation performed at [facility]. It is unclear if the patient's dysphagia is oropharyngeal or esophageal-phase. There is also mild right facial weakness. Patient was not interested in speech therapy/swallowing evaluation. (7) Wenckebach block: Status: Acute Assessment and plan: While asleep, asymptomatic. Benign rhythm. Continue to monitor on tele. (8) DACIA (acute kidney injury): Status: Resolved Assessment and plan: Multifactorial - obstructive and due to sepsis. Cr about the same as yesterday. Encourage PO fluids. Monitor Cr with resumption of ryan-i. (9) DVT prophylaxis: Status: Acute Assessment and plan: Heparin SC (10) Discharge planning issues: Status: Acute Assessment and plan: DNR/DNI Palliative care saw patient for COLST form completion Awaiting further surgical plans - until then, work on BP in inpatient status. Will likely be able to be transitioned into swing bed level 1 over the weekend. Subjective Subjective Interval history since last seen: Ms Joyner states she is doing well today. She spent some time in the chair and went for a walk in the hallway. Denies dizziness, chest pain, shortness of breath, nausea, vomiting. Exam Narrative Exam Narrative: General: Very pleasant obese female, laying comfortably in bed, A&Ox3 Neuro: A&Ox3, slight R nasolabial fold flattening - better today, 4/5 strength LUE, also better today, 4+/5 strength LLE HEENT: EOMI, MMM Heart: RRR Lungs: CTAB Abdomen: soft, nontender, nondistended Extremities: no e/c/c BLE's Objective Objective Clinical Data: Abnormal lab results 12/24/19 12/24/19 Range/Units 06:30 06:30 RBC 3.94 L (4.00-5.20) m/cumm MCV 95.2 H (80-95) fL Creatinine 1.07 H (0.55-1.02) mg/dL Glucose 119 H (74-106) mg/dL C-Reactive Protein 3.55 H (0.0-0.3) mg/dL Vital Signs Temperature 36.9 C 12/24/19 11:15 Temperature Source Tympanic 12/24/19 11:15 Pulse 78 12/24/19 11:15 Pulse Rhythm Regular 12/24/19 08:20 Pulse 88 12/18/19 20:01 Respiratory Rate 18 12/24/19 11:15 Respiratory Effort 12/24/19 08:20 Respiratory Depth Normal 12/24/19 08:20 Respiratory Pattern Normal 12/24/19 08:20 Blood Pressure 185/113 H 12/24/19 11:15 Blood Pressure Mean 79 12/18/19 20:01 Blood Pressure Position Supine 12/18/19 15:15 Pulse Oximetry 97 12/24/19 11:15 Oxygen Delivery Method Room Air 12/24/19 11:15 Oxygen Flow Rate 0 12/24/19 11:15 Pain Level 0 12/24/19 11:15 Comment 12/23/19 23:53 Intake & Output 12/23/19 12/24/19 12/24/19 23:59 11:59 23:59 Intake Total 240 / 1467.417 Output Total 1999 850 / 850 Balance -210 / -532.583 -850 / -850 Weight 77.5 kg Intake: Oral 240 / 480 Output: Urine 1999 850 / 850 Other: Urine Color Pale Straw Yellow Urine Appearance Clear Clear Stool Size Moderate Stool Characteristics Soft Laboratory Results WBC 6.70 k/cumm (4.4-10.8) 12/24/19 06:30 RBC 3.94 m/cumm (4.00-5.20) L 12/24/19 06:30 Hgb 12.6 g/dL (12.0-15.5) 12/24/19 06:30 Hct 37.5 % (36.0-46.0) 12/24/19 06:30 MCV 95.2 fL (80-95) H 12/24/19 06:30 MCH 32.0 pg (27.0-33.0) 12/24/19 06:30 MCHC 33.6 g/dL (32.0-36.0) 12/24/19 06:30 RDW 13.4 % (11.7-14.6) 12/24/19 06:30 Plt Count 285 x1000/uL (130-400) 12/24/19 06:30 MPV 10.8 fL (8.0-11.0) 12/24/19 06:30 Immature Gran % 1.8 % 12/24/19 06:30 Neutrophils % 61.3 12/24/19 06:30 Lymphocytes % 21.8 12/24/19 06:30 Monocytes % 10.4 12/24/19 06:30 Eosinophils % 4.3 12/24/19 06:30 Basophils % 0.4 12/24/19 06:30 Absolute Neutrophils 4.10 k/cumm (1.2-6.7) 12/24/19 06:30 Absolute Lymphocytes 1.46 k/cumm (1.2-3.4) 12/24/19 06:30 Absolute Monocytes 0.70 k/cumm (0.11-0.7) 12/24/19 06:30 Absolute Eosinophils 0.29 k/cumm (0.0-0.7) 12/24/19 06:30 Absolute Basophils 0.03 k/cumm (0.0-0.2) 12/24/19 06:30 Sodium 137 mmol/L (136-145) 12/24/19 06:30 Potassium 3.8 mmol/L (3.5-5.1) 12/24/19 06:30 Chloride 101 mmol/L (98-107) 12/24/19 06:30 Carbon Dioxide 26.5 mmol/L (21.0-32.0) 12/24/19 06:30 Anion Gap 9.5 mmol/L (3-11) 12/24/19 06:30 BUN 17 mg/dL (7-18) 12/24/19 06:30 Creatinine 1.07 mg/dL (0.55-1.02) H 12/24/19 06:30 Estimated GFR/1.73 m2 49.60 (mL/min/1.73m2) 12/24/19 06:30 Glucose 119 mg/dL (74-106) H 12/24/19 06:30 Hemoglobin A1c 6.4 % (3.8-5.6) H 12/22/19 06:40 Calcium 9.6 mg/dL (8.5-10.1) 12/24/19 06:30 Magnesium 1.8 mg/dL (1.8-2.4) 12/24/19 06:30 Total Bilirubin 0.3 mg/dL (0.2-1.0) 12/19/19 06:28 AST 49 U/L (15-37) H 12/19/19 06:28 ALT 44 U/L (14-59) 12/19/19 06:28 Alkaline Phosphatase 70 U/L (46-116) 12/19/19 06:28 C-Reactive Protein 3.55 mg/dL (0.0-0.3) H 12/24/19 06:30 Total Protein 6.5 g/dL (6.4-8.2) 12/19/19 06:28 Albumin 2.7 g/dL (3.4-5.0) L 12/19/19 06:28 Triglycerides 155 mg/dL (<150) H 12/22/19 06:40 Total Cholesterol 141 mg/dL (<200) 12/22/19 06:40 LDL Cholesterol, Calc 87 mg/dL (<100) 12/22/19 06:40 HDL Cholesterol 23 mg/dL (40-60) L 12/22/19 06:40 25-OH Vitamin D Total 19.3 ng/ml (30-100) L 12/22/19 06:40 Procalcitonin 8.4 ng/mL 12/22/19 06:40 TSH 2.74 uIU/mL (0.36-3.74) 12/18/19 15:30 Urine Color Yellow (Yellow) 12/18/19 17:00 Urine Clarity Clear (Clear) 12/18/19 17:00 Urine pH 7.5 (5-8) 12/18/19 17:00 Ur Specific [place] 1.020 (1.005-1.025) 12/18/19 17:00 Urine Protein 100 mg/dL (Negative) H 12/18/19 17:00 Urine Ketones Negative mg/dL (Negative) 12/18/19 17:00 Urine Blood Moderate (Negative) H 12/18/19 17:00 Urine Nitrite Negative (Negative) 12/18/19 17:00 Urine Bilirubin Negative (Negative) 12/18/19 17:00 Urine Urobilinogen 0.2 EU/dL (Up TO 0.2) 12/18/19 17:00 Ur Leukocyte Esterase Large (Negative) H 12/18/19 17:00 Urine RBC Negative HPF (0-2) 12/18/19 17:00 Urine WBC >50 HPF (0-5) H 12/18/19 17:00 Ur Epithelial Cells Negative HPF (Negative) 12/18/19 17:00 Urine Crystals Negative HPF (Negative) 12/18/19 17:00 Urine Bacteria Negative HPF (Negative) 12/18/19 17:00 Urine Mucus Negative (Negative) 12/18/19 17:00 Urine Other Few renal (Negative) 12/18/19 17:00 Ur Culture Indicated? Yes 12/18/19 17:00 Urine Glucose Negative mg/dL (Negative) 12/18/19 17:00 Salicylates Cancelled 12/20/19 09:14 COVID-19 PCR Negative (Negative) 12/18/19 19:46 Nasopharyn COVID-19 PCR Not Applicable 12/18/19 19:46 Ref Test Perform Site [facility] lab 12/18/19 19:46
[2019-12-24] MEDS: Lisinopril 5 MG TAB PO (15:18)
[2019-12-24] MEDS: Acetaminophen 325 MG TAB 650 MG PO (20:12)
[2019-12-24] MEDS: Normal Saline Flush 10 ML SYR IVP (20:13)
[2019-12-24] MEDS: cefTRIAXone 2 GM/50 ML BAG IVPB (20:13)
[2019-12-24] MEDS: Oxybutynin-CR 5 MG TABCR PO (21:57)
[2019-12-24] MEDS: Simvastatin 20 MG TAB PO (21:57)
[2019-12-25 03:24] VITALS: BP 147/78; PULSE 80; RESP 18; TEMP 37.1; O2SAT 95
[2019-12-25] MEDS: Heparin 5,000 UNITS/ML VIAL 5000 UNITS SC ×3 (06:18→21:43)
[2019-12-25] MEDS: Levothyroxine 50 MCG TAB PO (06:18)
[2019-12-25 07:19] VITALS: BP 137/87; PULSE 65; RESP 17; TEMP 36.6; O2SAT 96
[2019-12-25] MEDS: Thiamine 100 MG TAB PO (08:24)
[2019-12-25] MEDS: Aspirin 81 MG CHEW PO (08:24)
[2019-12-25] MEDS: Tamsulosin 0.4 MG CAPCR PO (08:24)
[2019-12-25] MEDS: Lisinopril 5 MG TAB PO (08:24)
[2019-12-25] MEDS: Folic Acid 1 MG TAB PO (08:24)
[2019-12-25] MEDS: Omeprazole 20 MG CAPCR PO (08:24)
[2019-12-25] MEDS: Multivitamin TAB 1 TAB PO (08:25)
[2019-12-25] MEDS: Metoclopramide 10 MG TAB PO (08:25)
[2019-12-25] MEDS: Venlafaxine 37.5 MG CAPCR 75 MG PO (08:25)
[2019-12-25] MEDS: Clopidogrel 75 MG TAB PO (08:25)
--- NOTE | 2019-12-25 09:35 | PTTR_ITS ---
Date of service: 12/25/19 Time of Service: 08:30 PT Notes Visit Reasons: PYELONEPHRITIS POST OBSTRUCTIVE WITH URETEROLITHIA Date of service: 12/24/19 Time of Service: 12:45 PT Notes Visit Reasons: PYELONEPHRITIS POST OBSTRUCTIVE WITH URETEROLITHIA Inpatient Physical Therapy Treatment [facility] Date: 12/24/2019 PRECAUTIONS: Fall. Standard. Activity as tolerated. Left-sided hemiparesis. SUBJECTIVE: Charity states I am feeling more tired than usual today. I want to get going. OBJECTIVE: Telemetry monitoring in place. Oropeza catheter in place. L facial drooping observed. PAIN: None reported. Denies headache. BED MOBILITY/TRANSFERS Sit to stand mod assist with minimal verbal cues needed for B hand placement, left hand is secured to the walker handle using ETHAN wraps Stand to sit contact-guard assist with minimal verbal cues needed for B hand placement, left hand is secured with manual assist GAIT: Patient tolerated level surface ambulation of 50 ft x 4 using front wheeled walker with full weigh bearing requiring moderate assist of PT and wheelchair follow of DARIANA Moreno. Patient exhibited increasing trunk lean to L, with a few episodes of fall prevention assist. Active dragline mechanic remains diminished with manual assist to secure hand on walker. Decreased dorsiflexion on L. Cue for proper lean to right during right stance, and better swing of L LE, with heel to toe effort. NEURO RE-ED and THERA EX: Completed per flow sheet. 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 Her gait pattern remains unsafe which increases risk for falling. More fatigued today. She continues to demonstrate impairments and strength, range of motion, and mobility level requiring skilled physical therapy services. Plan of Care/Treatment Plan: 1-2x/day, 7 days/week x 1 week. Plan of care has been reviewed with the CLINICAL CYTOGENETICIST SCIENTIST providing the service under Physical Therapy direction. Continue with physical Therapy intervention for strengthening, bed mobility, transfers, gait, stairs, balance training, use of assistive device. DISCHARGE RECOMMENDATIONS: Patient will benefit from nursing home facility placement (or swing bed level 1) placement for continued skilled physical therapy services in order to progress mobility level, strength, and balance in preparation for a safe discharge to home. TREATMENT CODE/TIME: Session 1??85723 x 15 minutes, 85324 x 15 minutes, and 16105 x 16 minutes beginning at 9:03 AM. Session 2??[id number] x 30 minutes beginning at 12:45 PM.
--- NOTE | 2019-12-25 10:25 | CMPROGNOTE_ITS ---
Care Management Progress Note S/O: Charity remains pleasant in interaction. Per MD, planned surgical intervention will be deferred to [facility], due to concerns of CVA risk. Anticipate Charity will remain at [facility] through the weekend at this time, she remains on IV ABX. CM continues to follow. A: Charity is a 79 year old female admitted to [facility] on 12/18/19 for Obstructing ureteral stone on the right with hydronephrosis and possible pyelonephritis. P: Anticipate Charity will transfer to [facility] once transfer can be coordinated, and a bed becomes available. Anticipate she will remain at [facility] over the weekend as she is not deemed an emergent transfer. CM continues to follow.
--- NOTE | 2019-12-25 10:25 | PDOC.CMPRO ---
Care Management Progress Note S/O: Charity remains pleasant in interaction. Per MD, planned surgical intervention will be deferred to [facility], due to concerns of CVA risk. Anticipate Charity will remain at [facility] through the weekend at this time, she remains on IV ABX. CM continues to follow. A: Charity is a 79 year old female admitted to [facility] on 12/18/19 for Obstructing ureteral stone on the right with hydronephrosis and possible pyelonephritis. P: Anticipate Charity will transfer to [facility] once transfer can be coordinated, and a bed becomes available. Anticipate she will remain at [facility] over the weekend as she is not deemed an emergent transfer. CM continues to follow.
[2019-12-25 11:09] VITALS: BP 145/82; PULSE 77; RESP 17; TEMP 36.9; O2SAT 96
--- NOTE | 2019-12-25 15:14 | PGE_ITS ---
Date of Service Date of service: 12/25/19 Time of Service: 15:14 Assessment and Plan Assessment and plan (1) Ischemic cerebrovascular accident (CVA): Status: Acute Assessment and plan: Continue asa 81 mg PO daily, plavix, simvastatin 20 mg PO qhs. I will put hold parameters on her lisinopril dose as her blood pressure has come down considerably since her lisinopril was restarted yesterday. We will watch for any future neurologic changes. She will remain on dual antiplatelet therapy. (2) HTN (hypertension): Status: Chronic Assessment and plan: Lisinopril was resumed at a dose of 5 mg daily. There is been a market decrease in her blood pressures since yesterday. Blood pressure came down from 185/113 yesterday morning and her current blood pressure readings of 130s to 140 systolic with diastolic readings in the 70s to 80s. I am going to put a hold parameter on her lisinopril to keep her systolic blood pressure above 140. Qualifiers: Hypertension type: essential hypertension Qualified Code(s): I10 - Essential (primary) hypertension (3) Proteus septicemia: Status: Acute Assessment and plan: Due to proteus UTI complicated by obstructive nephrolithiasis on R and nonobstructive on left, s/p cysto/B stent placement by Dr Holman on 12/18/2019. Repeat blood cultures negative. Case discussed with [facility] as well as with Dr Holman: continue IV ceftriaxone 2 grams through stone removal, planned for next week - will have to be at [facility], but when is unclear at this time. We are awaiting further information. (4) Ureteral calculus: Status: Acute Assessment and plan: Bilateral. As above (5) Hyperlipidemia: Status: Acute Assessment and plan: Discontinue simvastatin in favor of high-dose atorvastatin Qualifiers: Hyperlipidemia type: unspecified Qualified Code(s): E78.5 - Hyperlipidemia, unspecified (6) Wenckebach block: Status: Acute Assessment and plan: Patient continues to demonstrate Mobitz type I Wenke block second-degree AV block. While asleep she will drop her heart rate down into the 40s. She is asymptomatic from this. We will continue to monitor her for now. She is not currently on any rate controlling medications. Because of her multiple comorbidities anesthesia department here at [facility] will not accept her for an procedure. We are awaiting Dr. Holman's arrangement for her to be transferred to [facility] urology service early next week. (7) DACIA (acute kidney injury): Status: Resolved Assessment and plan: Multifactorial - obstructive and due to sepsis. Cr about the same as yesterday. Encourage PO fluids. Monitor Cr with resumption of her lisinopril. Will give her iv fluids for now to try to achieve better hydration and improve her blood pressures. (8) DVT prophylaxis: Status: Acute Assessment and plan: Heparin SC (9) Discharge planning issues: Status: Acute Assessment and plan: DNR/DNI Palliative care saw patient for COLST form completion Awaiting further surgical plans - until then, work on BP in inpatient status. Not candidate for swing bed status while her neurologic status is in flux and her BP are labile. Will monitor over the weekend and put hold parameters on her lisinopril. Subjective Subjective Interval history since last seen: Patient is discouraged by her stroke. She states that she feels that her left arm strength is a little less than it was yesterday. Otherwise no acute changes. She is wondering as to when she will have her surgery for her renal stones. I explained her that Dr. Holman is trying to arrange with the urologists at [facility] to perform her surgery next week. The surgery will need to be coordinated with neurology because of her recent stroke and need for dual antiplatelet therapy. She denies any headaches or dyspnea or chest pain and denies any nausea or vomiting or dysfunction. Exam Narrative Exam Narrative: Elderly female lying in bed appears to be depressed. She is alert and oriented person place time and circumstance. Speech is clear and coherent. Lungs are clear to auscultation. Heart regular but bradycardic Neuro exam reveals no significant facial asymmetry no dysarthric speech extraocular motions intact. Left arm strength is diminished. She is able to hold left arm up against gravity but with a significant drop. I would rate her strength at 3 out of 5. And mail handler assistant strength is weak also 3 out of 5. There is diminished sensation over the left forearm and hand and upper arm to light touch. Left leg strength is normal. Sensation of the left leg is normal. Objective Objective Clinical Data: Vital Signs Temperature 36.9 C 12/25/19 11:09 Temperature Source Tympanic 12/25/19 11:09 Pulse 77 12/25/19 11:09 Pulse Rhythm Irregular 12/25/19 08:29 Pulse 88 12/18/19 20:01 Respiratory Rate 17 12/25/19 11:09 Respiratory Effort Non-Labored 12/25/19 08:29 Respiratory Depth Normal 12/25/19 08:29 Respiratory Pattern Normal 12/25/19 08:29 Blood Pressure 145/82 H 12/25/19 11:09 Blood Pressure Mean 79 12/18/19 20:01 Blood Pressure Position Supine 12/18/19 15:15 Pulse Oximetry 96 12/25/19 11:09 Oxygen Delivery Method Room Air 12/25/19 11:09 Oxygen Flow Rate 0 12/25/19 11:09 Pain Level 0 12/25/19 11:09 Comment 12/23/19 23:53 Intake & Output 12/24/19 12/25/19 12/25/19 23:59 11:59 23:59 Intake Total 400 / 400 200 / 440 240 / 440 Output Total 550 / 1400 375 / 375 Balance -150 / -1000 -175 / 65 240 / 65 Weight 75.8 kg Intake: Oral 400 / 400 200 / 440 240 / 440 Output: Urine 550 / 1400 375 / 375 Other: Urine Color Yellow Light Rose Urine Appearance Clear Clear Stool Size Large Stool Characteristics Soft Formed Brown Laboratory Results WBC 6.70 k/cumm (4.4-10.8) 12/24/19 06:30 RBC 3.94 m/cumm (4.00-5.20) L 12/24/19 06:30 Hgb 12.6 g/dL (12.0-15.5) 12/24/19 06:30 Hct 37.5 % (36.0-46.0) 12/24/19 06:30 MCV 95.2 fL (80-95) H 12/24/19 06:30 MCH 32.0 pg (27.0-33.0) 12/24/19 06:30 MCHC 33.6 g/dL (32.0-36.0) 12/24/19 06:30 RDW 13.4 % (11.7-14.6) 12/24/19 06:30 Plt Count 285 x1000/uL (130-400) 12/24/19 06:30 MPV 10.8 fL (8.0-11.0) 12/24/19 06:30 Immature Gran % 1.8 % 12/24/19 06:30 Neutrophils % 61.3 12/24/19 06:30 Lymphocytes % 21.8 12/24/19 06:30 Monocytes % 10.4 12/24/19 06:30 Eosinophils % 4.3 12/24/19 06:30 Basophils % 0.4 12/24/19 06:30 Absolute Neutrophils 4.10 k/cumm (1.2-6.7) 12/24/19 06:30 Absolute Lymphocytes 1.46 k/cumm (1.2-3.4) 12/24/19 06:30 Absolute Monocytes 0.70 k/cumm (0.11-0.7) 12/24/19 06:30 Absolute Eosinophils 0.29 k/cumm (0.0-0.7) 12/24/19 06:30 Absolute Basophils 0.03 k/cumm (0.0-0.2) 12/24/19 06:30 Sodium 137 mmol/L (136-145) 12/24/19 06:30 Potassium 3.8 mmol/L (3.5-5.1) 12/24/19 06:30 Chloride 101 mmol/L (98-107) 12/24/19 06:30 Carbon Dioxide 26.5 mmol/L (21.0-32.0) 12/24/19 06:30 Anion Gap 9.5 mmol/L (3-11) 12/24/19 06:30 BUN 17 mg/dL (7-18) 12/24/19 06:30 Creatinine 1.07 mg/dL (0.55-1.02) H 12/24/19 06:30 Estimated GFR/1.73 m2 49.60 (mL/min/1.73m2) 12/24/19 06:30 Glucose 119 mg/dL (74-106) H 12/24/19 06:30 Hemoglobin A1c 6.4 % (3.8-5.6) H 12/22/19 06:40 Calcium 9.6 mg/dL (8.5-10.1) 12/24/19 06:30 Magnesium 1.8 mg/dL (1.8-2.4) 12/24/19 06:30 Total Bilirubin 0.3 mg/dL (0.2-1.0) 12/19/19 06:28 AST 49 U/L (15-37) H 12/19/19 06:28 ALT 44 U/L (14-59) 12/19/19 06:28 Alkaline Phosphatase 70 U/L (46-116) 12/19/19 06:28 C-Reactive Protein 3.55 mg/dL (0.0-0.3) H 12/24/19 06:30 Total Protein 6.5 g/dL (6.4-8.2) 12/19/19 06:28 Albumin 2.7 g/dL (3.4-5.0) L 12/19/19 06:28 Triglycerides 155 mg/dL (<150) H 12/22/19 06:40 Total Cholesterol 141 mg/dL (<200) 12/22/19 06:40 LDL Cholesterol, Calc 87 mg/dL (<100) 12/22/19 06:40 HDL Cholesterol 23 mg/dL (40-60) L 12/22/19 06:40 25-OH Vitamin D Total 19.3 ng/ml (30-100) L 12/22/19 06:40 Procalcitonin 8.4 ng/mL 12/22/19 06:40 TSH 2.74 uIU/mL (0.36-3.74) 12/18/19 15:30 Urine Color Yellow (Yellow) 12/18/19 17:00 Urine Clarity Clear (Clear) 12/18/19 17:00 Urine pH 7.5 (5-8) 12/18/19 17:00 Ur Specific [place] 1.020 (1.005-1.025) 12/18/19 17:00 Urine Protein 100 mg/dL (Negative) H 12/18/19 17:00 Urine Ketones Negative mg/dL (Negative) 12/18/19 17:00 Urine Blood Moderate (Negative) H 12/18/19 17:00 Urine Nitrite Negative (Negative) 12/18/19 17:00 Urine Bilirubin Negative (Negative) 12/18/19 17:00 Urine Urobilinogen 0.2 EU/dL (Up TO 0.2) 12/18/19 17:00 Ur Leukocyte Esterase Large (Negative) H 12/18/19 17:00 Urine RBC Negative HPF (0-2) 12/18/19 17:00 Urine WBC >50 HPF (0-5) H 12/18/19 17:00 Ur Epithelial Cells Negative HPF (Negative) 12/18/19 17:00 Urine Crystals Negative HPF (Negative) 12/18/19 17:00 Urine Bacteria Negative HPF (Negative) 12/18/19 17:00 Urine Mucus Negative (Negative) 12/18/19 17:00 Urine Other Few renal (Negative) 12/18/19 17:00 Ur Culture Indicated? Yes 12/18/19 17:00 Urine Glucose Negative mg/dL (Negative) 12/18/19 17:00 Salicylates Cancelled 12/20/19 09:14 COVID-19 PCR Negative (Negative) 12/18/19 19:46 Nasopharyn COVID-19 PCR Not Applicable 12/18/19 19:46 Ref Test Perform Site [facility] lab 12/18/19 19:46
[2019-12-25 15:30] VITALS: BP 138/80; PULSE 69; RESP 17; TEMP 36.7; O2SAT 96
[2019-12-25] MEDS: cefTRIAXone 2 GM/50 ML BAG IVPB (20:20)
[2019-12-25] MEDS: Normal Saline Flush 10 ML SYR IVP (20:21)
[2019-12-25 21:37] VITALS: BP 130/68; PULSE 63; RESP 18; TEMP 37; O2SAT 95
[2019-12-25] MEDS: Oxybutynin-CR 5 MG TABCR PO (21:43)
[2019-12-25] MEDS: Normal Saline 1,000 ML 150 ML IV (21:58)
[2019-12-26] VITALS (8 sets, daily range): BP systolic 100–169; BP diastolic 63–98; PULSE 58–90; RESP 16–97; TEMP 36.1–37.2; O2SAT 90–98
[2019-12-26] MEDS: Levothyroxine 50 MCG TAB PO (06:09)
[2019-12-26] MEDS: Heparin 5,000 UNITS/ML VIAL 5000 UNITS SC ×3 (06:09→22:08)
[2019-12-26] MEDS: Multivitamin TAB 1 TAB PO (07:59)
[2019-12-26] MEDS: Metoclopramide 10 MG TAB PO (07:59)
[2019-12-26] MEDS: Aspirin 81 MG CHEW PO (07:59)
[2019-12-26] MEDS: Lisinopril 5 MG TAB PO (07:59)
[2019-12-26] MEDS: Folic Acid 1 MG TAB PO (07:59)
[2019-12-26] MEDS: Clopidogrel 75 MG TAB PO (07:59)
[2019-12-26] MEDS: Venlafaxine 37.5 MG CAPCR 75 MG PO (08:00)
[2019-12-26] MEDS: Tamsulosin 0.4 MG CAPCR PO (08:00)
[2019-12-26] MEDS: Omeprazole 20 MG CAPCR PO (08:00)
[2019-12-26] MEDS: Thiamine 100 MG TAB PO (08:00)
--- NOTE | 2019-12-26 09:24 | W.PM.PROGNOT ---
Date of Service Date of service: 12/26/19 Time of Service: 09:24 Assessment and Plan Assessment and plan (1) Ischemic cerebrovascular accident (CVA): Status: Acute Assessment and plan: Continue asa 81 mg PO daily, plavix, simvastatin 20 mg PO qhs. I will put hold parameters on her lisinopril dose as her blood pressure has come down considerably since her lisinopril was restarted yesterday. We will watch for any future neurologic changes. She will remain on dual antiplatelet therapy. This morning she was mildly hypertensive with pressure 169/98 however couple hours after her lisinopril her blood pressure dropped to 100/65. Now at lunchtime is back up to 143/75. We will reduce her lisinopril dose down to 2.5 mg still with the parameters to hold if her systolic pressure is below 140 (2) HTN (hypertension): Status: Chronic Assessment and plan: As above. Qualifiers: Hypertension type: essential hypertension Qualified Code(s): I10 - Essential (primary) hypertension (3) Proteus septicemia: Status: Acute Assessment and plan: Due to proteus UTI complicated by obstructive nephrolithiasis on R and nonobstructive on left, s/p cysto/B stent placement by Dr Holman on 12/18/2019. Repeat blood cultures negative. Case discussed with [facility] as well as with Dr Holman: continue IV ceftriaxone 2 grams through stone removal, planned for next week - will have to be [place] [facility] but when is unclear at this time. We are awaiting further information. (4) Ureteral calculus: Status: Acute Assessment and plan: Bilateral. As above (5) Hyperlipidemia: Status: Acute Assessment and plan: Discontinue simvastatin in favor of high-dose atorvastatin Qualifiers: Hyperlipidemia type: unspecified Qualified Code(s): E78.5 - Hyperlipidemia, unspecified (6) Wenckebach block: Status: Acute Assessment and plan: Patient continues to demonstrate Mobitz type I Wenke block second-degree AV block. While asleep she will drop her heart rate down into the 40s. She is asymptomatic from this. We will continue to monitor her for now. She is not currently on any rate controlling medications. Because of her multiple comorbidities anesthesia department here at [facility] will not accept her for an procedure. We are awaiting Dr. Holman's arrangement for her to be transferred to [facility] urology service early next week. (7) DACIA (acute kidney injury): Status: Resolved Assessment and plan: Multifactorial - obstructive and due to sepsis. Cr about the same as yesterday. Encourage PO fluids. Monitor Cr with resumption of her lisinopril. (8) DVT prophylaxis: Status: Acute Assessment and plan: Heparin SC (9) Discharge planning issues: Status: Acute Assessment and plan: DNR/DNI Palliative care saw patient for COLST form completion Awaiting further surgical plans - until then, work on BP in inpatient status. Not candidate for swing bed status while her neurologic status is in flux and her BP are labile. Will monitor over the weekend and put hold parameters on her lisinopril. Subjective Subjective Interval history since last seen: Patient is doing better today. She ambulated with physical therapy with the use of front wheeled walker with assistance from 2 therapists. Patient feels that she has more strength in her left arm today. Blood pressures are running on the higher side today which I think she needs. She has no other complaints. No shortness of breath no chest pain or palpitations. Review of her telemetry continues to show that she has bradycardia when she is asleep with heart rates in the 40s. Otherwise she has sinus rhythm with type I second-degree AV block. Exam Narrative Exam Narrative: Elderly female sitting up in her chair alert and oriented person place time circumstance. HEENT is unremarkable. Lungs are clear to auscultation. Heart is regular with occasional extra systolic beat and some pauses. 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 Cardiology Coordinator strength is improved today but still weak and left arm strength is still weak but she is able to raise her arm up overhead against gravity but still has drifting of the left arm with prolonged elevation. Objective Objective Clinical Data: Vital Signs Temperature 36.7 C 12/26/19 07:33 Temperature Source Tympanic 12/26/19 07:33 Pulse 66 12/26/19 07:33 Pulse Rhythm Irregular 12/26/19 08:00 Pulse 88 12/18/19 20:01 Respiratory Rate 16 12/26/19 07:33 Respiratory Effort Non-Labored 12/26/19 08:00 Respiratory Depth Normal 12/26/19 08:00 Respiratory Pattern Normal 12/26/19 08:00 Blood Pressure 169/98 H 12/26/19 07:33 Blood Pressure Mean 79 12/18/19 20:01 Blood Pressure Position Supine 12/18/19 15:15 Pulse Oximetry 93 L 12/26/19 08:00 Oxygen Delivery Method Room Air 12/26/19 08:00 Oxygen Flow Rate 0 12/26/19 08:00 Pain Level 0 12/26/19 07:33 Comment 12/23/19 23:53 Intake & Output 12/25/19 12/25/19 12/26/19 11:59 23:59 11:59 Intake Total 200 / 560 360 / 560 540 / 540 Output Total 375 / 825 450 / 825 550 / 550 Balance -175 / -265 -90 / -265 -10 / -10 Weight 75.8 kg 76 kg Intake: Oral 200 / 560 360 / 560 540 / 540 Output: Urine 375 / 825 450 / 825 550 / 550 Other: Urine Color Light Rose Light Rose Yellow Urine Appearance Clear Clear Clear Stool Size Large Stool Characteristics Soft Formed Laboratory Results WBC 6.70 k/cumm (4.4-10.8) 12/24/19 06:30 RBC 3.94 m/cumm (4.00-5.20) L 12/24/19 06:30 Hgb 12.6 g/dL (12.0-15.5) 12/24/19 06:30 Hct 37.5 % (36.0-46.0) 12/24/19 06:30 MCV 95.2 fL (80-95) H 12/24/19 06:30 MCH 32.0 pg (27.0-33.0) 12/24/19 06:30 MCHC 33.6 g/dL (32.0-36.0) 12/24/19 06:30 RDW 13.4 % (11.7-14.6) 12/24/19 06:30 Plt Count 285 x1000/uL (130-400) 12/24/19 06:30 MPV 10.8 fL (8.0-11.0) 12/24/19 06:30 Immature Gran % 1.8 % 12/24/19 06:30 Neutrophils % 61.3 12/24/19 06:30 Lymphocytes % 21.8 12/24/19 06:30 Monocytes % 10.4 12/24/19 06:30 Eosinophils % 4.3 12/24/19 06:30 Basophils % 0.4 12/24/19 06:30 Absolute Neutrophils 4.10 k/cumm (1.2-6.7) 12/24/19 06:30 Absolute Lymphocytes 1.46 k/cumm (1.2-3.4) 12/24/19 06:30 Absolute Monocytes 0.70 k/cumm (0.11-0.7) 12/24/19 06:30 Absolute Eosinophils 0.29 k/cumm (0.0-0.7) 12/24/19 06:30 Absolute Basophils 0.03 k/cumm (0.0-0.2) 12/24/19 06:30 Sodium 137 mmol/L (136-145) 12/24/19 06:30 Potassium 3.8 mmol/L (3.5-5.1) 12/24/19 06:30 Chloride 101 mmol/L (98-107) 12/24/19 06:30 Carbon Dioxide 26.5 mmol/L (21.0-32.0) 12/24/19 06:30 Anion Gap 9.5 mmol/L (3-11) 12/24/19 06:30 BUN 17 mg/dL (7-18) 12/24/19 06:30 Creatinine 1.07 mg/dL (0.55-1.02) H 12/24/19 06:30 Estimated GFR/1.73 m2 49.60 (mL/min/1.73m2) 12/24/19 06:30 Glucose 119 mg/dL (74-106) H 12/24/19 06:30 Hemoglobin A1c 6.4 % (3.8-5.6) H 12/22/19 06:40 Calcium 9.6 mg/dL (8.5-10.1) 12/24/19 06:30 Magnesium 1.8 mg/dL (1.8-2.4) 12/24/19 06:30 Total Bilirubin 0.3 mg/dL (0.2-1.0) 12/19/19 06:28 AST 49 U/L (15-37) H 12/19/19 06:28 ALT 44 U/L (14-59) 12/19/19 06:28 Alkaline Phosphatase 70 U/L (46-116) 12/19/19 06:28 C-Reactive Protein 3.55 mg/dL (0.0-0.3) H 12/24/19 06:30 Total Protein 6.5 g/dL (6.4-8.2) 12/19/19 06:28 Albumin 2.7 g/dL (3.4-5.0) L 12/19/19 06:28 Triglycerides 155 mg/dL (<150) H 12/22/19 06:40 Total Cholesterol 141 mg/dL (<200) 12/22/19 06:40 LDL Cholesterol, Calc 87 mg/dL (<100) 12/22/19 06:40 HDL Cholesterol 23 mg/dL (40-60) L 12/22/19 06:40 25-OH Vitamin D Total 19.3 ng/ml (30-100) L 12/22/19 06:40 Procalcitonin 8.4 ng/mL 12/22/19 06:40 TSH 2.74 uIU/mL (0.36-3.74) 12/18/19 15:30 Urine Color Yellow (Yellow) 12/18/19 17:00 Urine Clarity Clear (Clear) 12/18/19 17:00 Urine pH 7.5 (5-8) 12/18/19 17:00 Ur Specific [place] 1.020 (1.005-1.025) 12/18/19 17:00 Urine Protein 100 mg/dL (Negative) H 12/18/19 17:00 Urine Ketones Negative mg/dL (Negative) 12/18/19 17:00 Urine Blood Moderate (Negative) H 12/18/19 17:00 Urine Nitrite Negative (Negative) 12/18/19 17:00 Urine Bilirubin Negative (Negative) 12/18/19 17:00 Urine Urobilinogen 0.2 EU/dL (Up TO 0.2) 12/18/19 17:00 Ur Leukocyte Esterase Large (Negative) H 12/18/19 17:00 Urine RBC Negative HPF (0-2) 12/18/19 17:00 Urine WBC >50 HPF (0-5) H 12/18/19 17:00 Ur Epithelial Cells Negative HPF (Negative) 12/18/19 17:00 Urine Crystals Negative HPF (Negative) 12/18/19 17:00 Urine Bacteria Negative HPF (Negative) 12/18/19 17:00 Urine Mucus Negative (Negative) 12/18/19 17:00 Urine Other Few renal (Negative) 12/18/19 17:00 Ur Culture Indicated? Yes 12/18/19 17:00 Urine Glucose Negative mg/dL (Negative) 12/18/19 17:00 Salicylates Cancelled 12/20/19 09:14 COVID-19 PCR Negative (Negative) 12/18/19 19:46 Nasopharyn COVID-19 PCR Not Applicable 12/18/19 19:46 Ref Test Perform Site [facility] lab 12/18/19 19:46
--- NOTE | 2019-12-26 10:17 | PTTR_ITS ---
Date of service: 12/26/19 Time of Service: 08:30 PT Notes Visit Reasons: PYELONEPHRITIS POST OBSTRUCTIVE WITH URETEROLITHIA PRECAUTIONS: Fall. Standard. Activity as tolerated. Left-sided hemiparesis. SUBJECTIVE: I did not sleep well last night. I did a lot of my exercies while I was awake, really working my leg. I keep squeezing my sponge. I want to go home soon. OBJECTIVE: Telemetry monitoring in place. Oropeza catheter in place. L facial drooping observed. PAIN: None reported. Denies headache. BED MOBILITY/TRANSFERS Sit to stand Min to CG assist with minimal verbal cues needed for B hand placement, left hand is secured to the walker handle using therapist manual assist Stand to sit contact-guard assist with minimal verbal cues needed for B hand p lacement, left hand is secured with manual assist. verbal cues to control descent into chair. GAIT: Patient tolerated level surface ambulation of 100 ft x 3 using front wheeled walker with full weigh bearing requiring assist of PT to hold L hand on walker, and to limit L left sway and falls intermittently. However, patient demonstrating remarkable improvement in endurance, stride length, and good clearance of left foot today. Wheelchair follow of Kate WE[place]BROOK. Cue for proper lean to right during right stance, and better swing of L LE, with heel to toe effort. NEURO RE-ED and THERA EX: Completed per flow sheet, adding additional weightbearing and push/pull neuro-miroslava activities. 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 Her gait pattern remains unsafe which increases risk for falling. Demonstrated improved gait pattern today, and less fatigue. She continues to demonstrate impairments and strength, range of motion, and mobility level requiring skilled physical therapy services. No functional use of L hand, and requires assist for ambulation. Plan of Care/Treatment Plan: 1-2x/day, 7 days/week x 1 week. Plan of care has been reviewed with the PATROL CAPTAIN providing the service under Physical Therapy direction. Continue with physical Therapy intervention for strengthening, bed mobility, transfers, gait, stairs, balance training, use of assistive device. DISCHARGE RECOMMENDATIONS: Patient will benefit from nursing home facility placement (or swing bed level 1) placement for continued skilled physical therapy services in order to progress mobility level, strength, and balance in preparation for a safe discharge to home. TREATMENT CODE/TIME: 66089, 39510, 21506, 45 minutes, beginning at 8:30 a.m.
--- NOTE | 2019-12-26 12:22 | CMPROGNOTE_ITS ---
Care Management Progress Note S/O: Charity remains pleasant in interaction. Per MD, planned surgical intervention will be deferred to [facility] [place], due to concerns of CVA risk. Anticipate Charity will remain at [facility] through the weekend at this time, she remains on IV ABX. Per MD, Dr. Holman will work towards transfer to [facility] this week. Charity's daughter Kristy would like to see her mother discharge from [facility] to a intensive recovery rehab such as [facility], per MD. CM continues to follow. A: Charity is a 79 year old female admitted to [facility] on 12/18/19 for Obstructing ureteral stone on the right with hydronephrosis and possible pyelonephritis. P: Anticipate Charity will transfer to [facility] once transfer can be coordinated, and a bed becomes available. Anticipate she will remain at [facility] over the weekend as she is not deemed an emergent transfer. CM continues to follow.
--- NOTE | 2019-12-26 12:22 | PDOC.CMPRO ---
Care Management Progress Note S/O: Charity remains pleasant in interaction. Per MD, planned surgical intervention will be deferred to [facility], due to concerns of CVA risk. Anticipate Charity will remain at [facility] through the weekend at this time, she remains on IV ABX. Per MD, Dr. Holman will work towards transfer to [facility] this week. Charity's daughter Kristy would like to see her mother discharge from [facility] to a intensive recovery rehab such as [facility], per MD. CM continues to follow. A: Charity is a 79 year old female admitted to [facility] on 12/18/19 for Obstructing ureteral stone on the right with hydronephrosis and possible pyelonephritis. P: Anticipate Charity will transfer to [facility] once transfer can be coordinated, and a bed becomes available. Anticipate she will remain at [facility] over the weekend as she is not deemed an emergent transfer. CM continues to follow.
--- NOTE | 2019-12-26 14:39 | NUR.NOTE ---
pt does not want to be woken up at this time. heparin not given
[2019-12-26] MEDS: Normal Saline Flush 10 ML SYR IVP (20:02)
[2019-12-26] MEDS: cefTRIAXone 2 GM/50 ML BAG IVPB (20:02)
[2019-12-26] MEDS: Atorvastatin 40 MG TAB 80 MG PO (20:06)
[2019-12-26] MEDS: Refresh PLUS Eye Drops 0.4ml OU (20:17)
[2019-12-26] MEDS: Oxybutynin-CR 5 MG TABCR PO (20:21)
[2019-12-26] MEDS: Acetaminophen 325 MG TAB 650 MG PO (23:02)
[2019-12-27 03:32] VITALS: BP 146/94; PULSE 65; RESP 19; TEMP 37.2; O2SAT 96
[2019-12-27] MEDS: Heparin 5,000 UNITS/ML VIAL 5000 UNITS SC ×3 (06:07→21:42)
[2019-12-27] MEDS: Levothyroxine 50 MCG TAB PO (06:07)
[2019-12-27 07:09] LABS: HCT 35.8 % (36.0-46.0); HGB 11.8 g/dL (12.0-15.5); Mean Corpuscular Hemoglobin 32.2 pg (27.0-33.0); Mean Corpuscular Volume 97.5 fL (80-95); Mean Platelet Volume 10.7 fL (8.0-11.0); Platelet Count 403 x1000/uL (130-400); RBC 3.67 m/cumm (4.00-5.20); RBC Distribution Width 14.2 % (11.7-14.6); White Blood Cell Count 6.28 k/cumm (4.4-10.8)
[2019-12-27 07:16] LABS: Anion Gap 8.9 mmol/L (3-11); BUN 24 mg/dL (7-18); CO2 27.1 mmol/L (21.0-32.0); CREATININE 1.05 mg/dL (0.55-1.02); Calcium 9.4 mg/dL (8.5-10.1); Chloride 104 mmol/L (98-107); Estimated GFR 50.69 (mL/min/1.73m2); Glucose 108 mg/dL (74-106); Potassium 3.9 mmol/L (3.5-5.1); Sodium 140 mmol/L (136-145)
[2019-12-27 07:39] VITALS: BP 133/79; PULSE 67; RESP 20; TEMP 37.1; O2SAT 95
--- NOTE | 2019-12-27 08:03 | OTTR_ITS ---
Date of service: 12/27/19 Time of Service: 07:30 Occupational Therapy Notes Occupational Therapy Inpatient Treatment Note Date: 12/27/19 PRECAUTIONS: Fall, Standard, DNR/DNI, (L) side weakness SUBJECTIVE: Pt was sitting in the chair when OT arrived. She was agreeable to OT session and notes that she has been performing her (L) UE exercises throughout the day and night. OBJECTIVE: PAIN: no c/o pain BATHING: sitting in chair with max (A) set up Upper Body: Able to (I) wash face and (L) UE with use of (R) UE, Max (A) for (R) UE due to decreased functional ROM of (L) UE at this time. Lower Body: Mod (A) (B) LE DRESSING: Lower Extremity: Max (A) don and doffing (B) socks and shoes Upper Extremity: Mod (A) don and doffing [facility] gown ASSESSMENT/PLAN: Pt was able to perform bathing routine with (A), she has decreased functional use of her (L) UE but is able to lift her arm up to about 100* AROM. TREATMENT CODES/TIME: [id number], 25 minutes (07:30) Archana Feliciano, OTR/L [facility]
[2019-12-27] MEDS: Aspirin 81 MG CHEW PO (09:27)
[2019-12-27] MEDS: Venlafaxine 37.5 MG CAPCR 75 MG PO (09:27)
[2019-12-27] MEDS: Lisinopril 5 MG TAB 2.5 MG PO (09:27)
[2019-12-27] MEDS: Metoclopramide 10 MG TAB PO (09:27)
[2019-12-27] MEDS: Tamsulosin 0.4 MG CAPCR PO (09:27)
--- NOTE | 2019-12-27 09:27 | PGE_ITS ---
Date of Service Date of service: 12/27/19 Time of Service: 09:27 Assessment and Plan Assessment and plan (1) Ischemic cerebrovascular accident (CVA): Status: Acute Assessment and plan: Slow improvement in her motor movements in her left arm. It is encouraging that she is get some feeling in her left hand. She seems to do better when her blood pressures are running on the higher side in the 140-150 range. Her daughter gave that would like her mother to go to a highly skilled rehabilitation center such as [facility] or [facility]. I have discussed this w/ CMargaretMMargaret (Tess) who will relay this on to [facility] once she is transferred there for her urologic procedure. Continue asa 81 mg PO daily, plavix, simvastatin 20 mg PO qhs (2) HTN (hypertension): Status: Chronic Assessment and plan: Lisinopril dose was reinstituted at a lower dose of 2.5 mg daily. This seems to be keeping her blood pressure within acceptable parameters with systolic blood pressures running between 140-150 and diastolic readings from 75-90. Qualifiers: Hypertension type: essential hypertension Qualified Code(s): I10 - Essential (primary) hypertension (3) Proteus septicemia: Status: Acute Assessment and plan: Remains on ceftriaxone [address] Holman's office is arranging referral to [facility] urology to the service of Dr. Chiang. All records and images have been sent. We are awaiting their decision about acceptance of the patient (4) Ureteral calculus: Status: Acute Assessment and plan: Bilateral. As above (5) Hyperlipidemia: Status: Acute Assessment and plan: Discontinue simvastatin in favor of high-dose atorvastatin Qualifiers: Hyperlipidemia type: unspecified Qualified Code(s): E78.5 - Hyperlipidemia, unspecified (6) Wenckebach block: Status: Acute Assessment and plan: Patient continues to demonstrate Mobitz type I Wenke block second-degree AV block. While asleep she will drop her heart rate down into the 40s. She is asymptomatic from this. We will continue to monitor her for now. She is not currently on any rate controlling medications. Because of her multiple comorbidities anesthesia department here at [facility] will not accept her for an procedure. We are awaiting Dr. Holman's arrangement for her to be transferred to [facility] urology service early next week. (7) DVT prophylaxis: Status: Acute Assessment and plan: Heparin SC (8) Discharge planning issues: Status: Acute Assessment and plan: DNR/DNI Palliative care saw patient for COLST form completion Awaiting further surgical plans - until then, work on BP in inpatient status. Not candidate for swing bed status while her neurologic status is in flux and her BP are labile. Will monitor over the weekend and put hold parameters on her lisinopril. Subjective Subjective Interval history since last seen: Patient has no acute complaints. No shortness of breath chest pain or dizziness. Left arm strength is improving although she still has significant paraparesis particularly in the distal left arm and hand. However she states that she started to get some feeling on the dorsum of her left hand. She does seem to be more hopeful today. I saw her while she was sitting up in her chair eating breakfast this morning. She has yet to do physical therapy this morning. We are still awaiting word from [facility] urology regarding whether or not they will accept the patient in transfer for treatment of her obstructive uropathy and renal stones. Exam Narrative Exam Narrative: Elderly female sitting up in a chair eating breakfast using her right hand to feed herself. She is alert and oriented person place time circumstance. Lungs are clear to auscultation. Heart regular rate and rhythm no appreciable gallop or rub or extrasystole Neurologic exam she has no dysarthric speech no facial asymmetry. Left arm shows some improvement in the strength. Proximal strength is better than distal strength. She is able to hold the left arm up against gravity without drifting. 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 Finger are still clumsy. She can weakly dorsiflex at the wrist. She is not able to resist me with flexion and extension at the elbow. Left lower extremity strength is normal Objective Objective Clinical Data: Abnormal lab results 12/27/19 12/27/19 Range/Units 06:30 06:30 RBC 3.67 L (4.00-5.20) m/cumm Hgb 11.8 L (12.0-15.5) g/dL Hct 35.8 L (36.0-46.0) % MCV 97.5 H (80-95) fL Plt Count 403 H (130-400) x1000/uL BUN 24 H (7-18) mg/dL Creatinine 1.05 H (0.55-1.02) mg/dL Glucose 108 H (74-106) mg/dL Vital Signs Temperature 37.1 C 12/27/19 07:39 Temperature Source Tympanic 12/27/19 07:39 Pulse 67 12/27/19 07:39 Pulse Rhythm Irregular 12/27/19 03:36 Pulse 88 12/18/19 20:01 Respiratory Rate 20 12/27/19 07:39 Respiratory Effort Non-Labored 12/27/19 03:36 Respiratory Depth Normal 12/27/19 03:36 Respiratory Pattern Normal 12/27/19 03:36 Blood Pressure 133/79 12/27/19 07:39 Blood Pressure Mean 79 12/18/19 20:01 Blood Pressure Position Supine 12/18/19 15:15 Pulse Oximetry 95 12/27/19 07:39 Oxygen Delivery Method Room Air 12/27/19 07:39 Oxygen Flow Rate 0 12/27/19 07:39 Pain Level 0 12/27/19 07:39 Comment 12/23/19 23:53 Intake & Output 12/26/19 12/26/19 12/27/19 11:59 23:59 11:59 Intake Total 540 / 540 240 / 240 Output Total 550 / 1950 1400 / 1950 700 / 700 Balance -10 / -1410 -1400 / -1410 -460 / -460 Weight 76 kg 76.8 kg Intake: Oral 540 / 540 240 / 240 Output: Urine 550 / 1950 1400 / 1950 700 / 700 Other: Urine Color Yellow Yellow Yellow Urine Appearance Clear Clear Clear Urine Odor Normal Stool Size Large Stool Characteristics Soft Formed Voiding Methods Indwelling Catheter Laboratory Results WBC 6.28 k/cumm (4.4-10.8) 12/27/19 06:30 RBC 3.67 m/cumm (4.00-5.20) L 12/27/19 06:30 Hgb 11.8 g/dL (12.0-15.5) L 12/27/19 06:30 Hct 35.8 % (36.0-46.0) L 12/27/19 06:30 MCV 97.5 fL (80-95) H 12/27/19 06:30 MCH 32.2 pg (27.0-33.0) 12/27/19 06:30 MCHC 33.0 g/dL (32.0-36.0) 12/27/19 06:30 RDW 14.2 % (11.7-14.6) 12/27/19 06:30 Plt Count 403 x1000/uL (130-400) H 12/27/19 06:30 MPV 10.7 fL (8.0-11.0) 12/27/19 06:30 Immature Gran % 1.8 % 12/24/19 06:30 Neutrophils % 61.3 12/24/19 06:30 Lymphocytes % 21.8 12/24/19 06:30 Monocytes % 10.4 12/24/19 06:30 Eosinophils % 4.3 12/24/19 06:30 Basophils % 0.4 12/24/19 06:30 Absolute Neutrophils 4.10 k/cumm (1.2-6.7) 12/24/19 06:30 Absolute Lymphocytes 1.46 k/cumm (1.2-3.4) 12/24/19 06:30 Absolute Monocytes 0.70 k/cumm (0.11-0.7) 12/24/19 06:30 Absolute Eosinophils 0.29 k/cumm (0.0-0.7) 12/24/19 06:30 Absolute Basophils 0.03 k/cumm (0.0-0.2) 12/24/19 06:30 Sodium 140 mmol/L (136-145) 12/27/19 06:30 Potassium 3.9 mmol/L (3.5-5.1) 12/27/19 06:30 Chloride 104 mmol/L (98-107) 12/27/19 06:30 Carbon Dioxide 27.1 mmol/L (21.0-32.0) 12/27/19 06:30 Anion Gap 8.9 mmol/L (3-11) 12/27/19 06:30 BUN 24 mg/dL (7-18) H 12/27/19 06:30 Creatinine 1.05 mg/dL (0.55-1.02) H 12/27/19 06:30 Estimated GFR/1.73 m2 50.69 (mL/min/1.73m2) 12/27/19 06:30 Glucose 108 mg/dL (74-106) H 12/27/19 06:30 Hemoglobin A1c 6.4 % (3.8-5.6) H 12/22/19 06:40 Calcium 9.4 mg/dL (8.5-10.1) 12/27/19 06:30 Magnesium 1.8 mg/dL (1.8-2.4) 12/24/19 06:30 Total Bilirubin 0.3 mg/dL (0.2-1.0) 12/19/19 06:28 AST 49 U/L (15-37) H 12/19/19 06:28 ALT 44 U/L (14-59) 12/19/19 06:28 Alkaline Phosphatase 70 U/L (46-116) 12/19/19 06:28 C-Reactive Protein 3.55 mg/dL (0.0-0.3) H 12/24/19 06:30 Total Protein 6.5 g/dL (6.4-8.2) 12/19/19 06:28 Albumin 2.7 g/dL (3.4-5.0) L 12/19/19 06:28 Triglycerides 155 mg/dL (<150) H 12/22/19 06:40 Total Cholesterol 141 mg/dL (<200) 12/22/19 06:40 LDL Cholesterol, Calc 87 mg/dL (<100) 12/22/19 06:40 HDL Cholesterol 23 mg/dL (40-60) L 12/22/19 06:40 25-OH Vitamin D Total 19.3 ng/ml (30-100) L 12/22/19 06:40 Procalcitonin 8.4 ng/mL 12/22/19 06:40 TSH 2.74 uIU/mL (0.36-3.74) 12/18/19 15:30 Urine Color Yellow (Yellow) 12/18/19 17:00 Urine Clarity Clear (Clear) 12/18/19 17:00 Urine pH 7.5 (5-8) 12/18/19 17:00 Ur Specific [place] 1.020 (1.005-1.025) 12/18/19 17:00 Urine Protein 100 mg/dL (Negative) H 12/18/19 17:00 Urine Ketones Negative mg/dL (Negative) 12/18/19 17:00 Urine Blood Moderate (Negative) H 12/18/19 17:00 Urine Nitrite Negative (Negative) 12/18/19 17:00 Urine Bilirubin Negative (Negative) 12/18/19 17:00 Urine Urobilinogen 0.2 EU/dL (Up TO 0.2) 12/18/19 17:00 Ur Leukocyte Esterase Large (Negative) H 12/18/19 17:00 Urine RBC Negative HPF (0-2) 12/18/19 17:00 Urine WBC >50 HPF (0-5) H 12/18/19 17:00 Ur Epithelial Cells Negative HPF (Negative) 12/18/19 17:00 Urine Crystals Negative HPF (Negative) 12/18/19 17:00 Urine Bacteria Negative HPF (Negative) 12/18/19 17:00 Urine Mucus Negative (Negative) 12/18/19 17:00 Urine Other Few renal (Negative) 12/18/19 17:00 Ur Culture Indicated? Yes 12/18/19 17:00 Urine Glucose Negative mg/dL (Negative) 12/18/19 17:00 Salicylates Cancelled 12/20/19 09:14 COVID-19 PCR Negative (Negative) 12/18/19 19:46 Nasopharyn COVID-19 PCR Not Applicable 12/18/19 19:46 Ref Test Perform Site [facility] lab 12/18/19 19:46
[2019-12-27] MEDS: Omeprazole 20 MG CAPCR PO (09:28)
[2019-12-27] MEDS: Clopidogrel 75 MG TAB PO (09:28)
[2019-12-27 10:31] LABS: Vitamin D 25 Total 21.3 ng/ml (30-100)
--- NOTE | 2019-12-27 10:35 | CMPROGNOTE_ITS ---
- If Service Date Differs Date of service: 12/27/19 Time of Service: 10:35 Care Management Progress Note S/O: Charity was sitting up in her chair when CM met with her. She was pleasant and engaged in conversation. She reported that her plan is to go to [facility] for surgery. She stated that she hopes it all goes well and that her concern is having another stroke. She stated that her daughter, Kristy, is very supportive and has been helping her take care of her bills while she is at [facility]. Per repo rt, Dr. Holman was attempting to transfer Charity, pending bed availability. Later in the day, the provider stated that she would not be transferred to [facility], and that she would follow up as an outpatient. She now is ready to be transferred to a rehab facility. CM sent a referral to [facility] for rehab at the request of Kristy. CM will continue to follow. A: Charity is a 79 year old female admitted to [facility] on 12/18/19 for Obstructing ureteral stone on the right with hydronephrosis and possible pyelonephritis. P: Anticipate Charity will transfer to a rehab facility for short term rehab prior to returning home. At the families request, CM sent a referral to [facility] for consideration. CM will follow up and continue to support discharge planning considerations.
[2019-12-27 12:10] VITALS: BP 134/88; PULSE 82; RESP 18; TEMP 37.1; O2SAT 96
--- NOTE | 2019-12-27 13:53 | CHAPLAIN ---
Charity was up in a chair this morning when I visited. She'd had her hair washed and said that felt good. She anticipates being taken to [facility] [place] for a procedure to remove some stones that are embedded in her kidney, she tells me. She worries that there is a possibility of her having another stroke. Charity talks about how frustrating it is not to be able to move her left as she wants to. We talked about her brother Humberto, who recently. Charity was close to him. Her three years ago. We talked about how life can seem very unfair at times, and she said she is going through a very unlucky time right now. Charity's daughter, Kirsty, is an ICU nurse here. Her other daughter lives in [facility]. Charity relies on them to help her make decisions, especially medical decisions. She said she often has difficulty when medical issues are explained to her in Amharic, as Arabic is her first language.
[2019-12-27 15:20] VITALS: BP 116/74; PULSE 71; RESP 18; TEMP 36.5; O2SAT 96
--- NOTE | 2019-12-27 15:36 | PT.INTREAT ---
Date of service: 12/27/19 Time of Service: 15:36 PT Notes Visit Reasons: PYELONEPHRITIS POST OBSTRUCTIVE WITH URETEROLITHIA Physical Therapy Inpatient Treatment Note Date: 12/27/2019 PRECAUTIONS: Fall. Standard. Activity as tolerated. Left-sided hemiparesis. SUBJECTIVE: Patient expresses how she has been trying to move her hand and her leg on the left side. She is still not sure about when her surgery to remove stone is. Later in the afternoon, patient was a little taken aback by the information she received from daughter Kristy about the possibility of delaying the surgery to 30 days after she had her stroke to reduce the risk of a recurrence. She was a little upset knowing that she may stay longer in an acute facility for her stroke rehab while awaiting aid surgery. OBJECTIVE: Telemetry monitoring in place. Oropeza catheter in place. L facial drooping observed. PAIN: None reported. Denies headache. BED MOBILITY/TRANSFERS Supine to sit with HOB at 30 degrees minimal assist with minimal verbal cueing for safe technique Sit to supine contact-guard assist with minimal verbal cueing for safe technique Sit to stand contact-guard assist with minimal verbal cues needed for B hand placement, left hand is secured to the walker handle with manual assist Stand to sit contact-guard assist with minimal verbal cues needed for B hand placement, left hand is secured to the walker handle with manual assist Bed to chair contact-guard assist with minimal verbal cues needed for B hand placement, left hand is secured to the walker handle using ETHAN wraps GAIT: Patient tolerated level surface ambulation of 100 feet + 100 feet using front wheeled walker with full weigh bearing requiring minimal ssist of PT and wheelchair follow of DARIANA Chiu. Patient exhibited no trunk lean to the left during the first 100 feet. Left hand secured onto the left handle with manual assist due to poor passenger car cleaning supervisor on the left. Decreased dorsiflexion on L continue to be observed. Increased inversion on L during swing phase requiring verbal cueing to increase step height to clear foot effectively. At the start of the second trip from the gym back to patient's room, patient left knee gave way and she was assisted to sit back onto the wheelchair by PT and DARIANA Chiu. She was unable to walk the second 100 feet with moderate verbal cueing for safety. NEURO RE-ED and THERA EX: Patient continues to tolerate static and dynamic sitting balance and tolerance activities with weight bearing encouraged through the left upper extremity with the elbow extended and the fingers flat on the edge of bed, minimal assist provided to facilitate elbow extension during weight shifting activities. Patient tolerated this for 10 minutes while performing lower extremity resistance exercises consisting of long arc quads for 10, seated hip flexion 10 using 2 pound ankle weights on both sides. Patient also performed shoulder flexion with hands clasped together x 10, bringing clasped hands together forward x 10, clasped hands with diagonal chop pattern to R x 10 and to L x 10. Patient also worked on foam squares medicinal plant picker and drop x 5 with most movement coming through elbow and wrist but with no functional finger flexion seen. 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 No functional use of left hand at this time. Partial hemineglect and continued weakness on left UE results to ineffective passenger car cleaning supervisor on left walker handle. Although left lateral pushing has significantly diminished, patient's gait pattern remains unsafe which increases risk for falling. She continues to demonstrate impairments in strength, range of motion, and mobility level requiring skilled physical therapy services. Plan of Care/Treatment Plan: 1-2x/day, 7 days/week x 1 week. Plan of care has been reviewed with the CANAL EQUIPMENT MAINTENANCE SUPERVISOR providing the service under Physical Therapy direction. Continue with physical Therapy intervention for strengthening, bed mobility, transfers, gait, stairs, balance training, use of assistive device. DISCHARGE RECOMMENDATIONS: Patient will benefit from acute stroke rehab facility placement in order to maximize return to previous functional mobility level. TREATMENT CODE/TIME: Session 1??[id number] x 24 minutes, 62310 x 30 minutes beginning at 11:00 AM. Session 2??[id number] x 26 minutes beginning at 15:36 PM.
[2019-12-27 19:00] VITALS: BP 125/67; PULSE 64; RESP 18; TEMP 37.1; O2SAT 98
[2019-12-27] MEDS: Acetaminophen 325 MG TAB 650 MG PO (19:09)
[2019-12-27] MEDS: cefTRIAXone 2 GM/50 ML BAG IVPB (20:14)
[2019-12-27] MEDS: Atorvastatin 40 MG TAB 80 MG PO (20:15)
[2019-12-27] MEDS: Oxybutynin-CR 5 MG TABCR PO (21:41)
[2019-12-27 22:50] VITALS: BP 137/84; PULSE 64; RESP 17; TEMP 37.9; O2SAT 94
[2019-12-28 03:35] VITALS: BP 149/93; PULSE 68; RESP 18; TEMP 36.9; O2SAT 96
[2019-12-28] MEDS: Heparin 5,000 UNITS/ML VIAL 5000 UNITS SC (06:35)
[2019-12-28] MEDS: Levothyroxine 50 MCG TAB PO (06:35)
[2019-12-28 08:15] VITALS: BP 137/88; PULSE 70; RESP 17; TEMP 37.2; O2SAT 95
[2019-12-28] MEDS: Lisinopril 5 MG TAB 2.5 MG PO (08:26)
[2019-12-28] MEDS: Clopidogrel 75 MG TAB PO (08:27)
[2019-12-28] MEDS: Aspirin 81 MG CHEW PO (08:28)
[2019-12-28] MEDS: Tamsulosin 0.4 MG CAPCR PO (08:28)
[2019-12-28] MEDS: Omeprazole 20 MG CAPCR PO (08:28)
[2019-12-28] MEDS: Venlafaxine 37.5 MG CAPCR 75 MG PO (08:29)
[2019-12-28] MEDS: Metoclopramide 10 MG TAB PO (08:29)
--- NOTE | 2019-12-28 09:33 | OTTR_ITS ---
Date of service: 12/28/19 Time of Service: 08:45 Occupational Therapy Notes Occupational Therapy Inpatient Treatment Note Date: 12/28/19 PRECAUTIONS: Fall, Standard, DNR/DNI SUBJECTIVE: Pt was sitting in chair when OT arrived. She is agreeable to OT session and reports that she would like to get washed up. OBJECTIVE: PAIN:no c/o pain BATHING: sitting in chair with max (A) set up (I) with use of (R) UE for (L) UE and face as well as abdomen and (B) LE to knees. Pt attempted to wash (R) UE with (L) but was unable to reach with her AROM at this time. EATING: Seated in chair (I) PLAN: Pts (L) UE is limited in terms of strength and AROM at this time. She is able to perform shoulder flexion and abduction (I) to (A) (R) UE when performing bathing but she is unable to functionally use her (L) UE for performance of bathing routine. She is working on performance of (L) UE gross motor control and notes that she was attempting to lift her cup with her (L) hand. She is presenting with less of a neglect and had awareness of placement of her (L) UE in the seated position. TREATMENT CODES/TIME: 67221, 15 minutes (08:45) Archana Feliciano, OTR/[facility]
--- NOTE | 2019-12-28 10:23 | INDS_ITS ---
Date of service: 12/29/19 Time of Service: 10:23 PT Notes Visit Reasons: PYELONEPHRITIS POST OBSTRUCTIVE WITH URETEROLITHIA Physical Therapy Inpatient discharge summary initial Evaluation Date: 12/28/2019 Dates of service: 12/22/2019 through 12/28/2019 Referring Doctor: Markus Figueredo MD PT Orders: PT CONSULT: Fall safety assessment. Evaluate and treat left hemiparesis, status post ischemic CVA. Precautions: Fall. Standard. Activity as tolerated. Patient Profile/Admitting Diagnosis: Charity is a 79-year-old female who presented to the ED on 12/18/2019 with chief complaints of low back pain that has worsened 4 days prior to admission. She developed acute fever while at the ED and became less responsive. Patient is diagnosed with urinary tract infection, ureteral calculus and is status post cystoscopy with bilateral retrograde pyelogram and insertion of bilateral ureteral stents. She is also found to have proteus septicemia, hyperlipidemia, and esophageal abnormality as of 12/19/2019. Patient had a fall the previous night and was also diagnosed with ischemic CVA with referral for skilled services in order to address functional mobility decline and facilitate discharge to home. PMHX: Medical History (Updated 12/22/19 @ 15:33 by Iman Brooke MD) Bilateral kidney stones (Acute) CAD (coronary artery disease), [place] coronary artery (Acute) Depression (Chronic) DNI (do not intubate) (Acute) DNR (do not resuscitate) (Acute) Fatty infiltration of liver (Acute) GERD (gastroesophageal reflux disease) (Chronic) Glaucoma (Chronic) Goals of care, counseling/discussion (Acute) HTN (hypertension) (Chronic) Hyperlipidemia (Acute) Hypothyroid (Chronic) OAB (overactive bladder) (Acute) Obesity (BMI 30.0-34.9) (Acute) Osteoarthritis (Chronic) Palliative care patient (Chronic) POLST (Physician Orders for Life-Sustaining Treatment) (Acute) done 12/22/19 Proteus septicemia (Acute) Right frontal lobe lesion (Chronic) stroke 12/21/19 Surgical History (Updated 12/22/19 @ 15:10 by Iman Brooke MD) Nephrostomy status (Acute) Social History/Home Situation: Patient lives alone in her private home in [place], [place]. She has 1 step to enter her house and has no other steps once inside as it is just 1 level. Daughter Hayde is an ICU nurse at this hospital. Charity is independent with all aspects of ADLs prior to admission. She stated that she has had more than 5 falls in the past 12 months due to some balance issues. Equipment Owned/DME: None Subjective: Patient is agreeable to transfer to an acute care stroke rehab facility and continues to expect surgery for her stone retrieval in a month or so as instructed by MD. Patient appeared anxious about what can happen to her and whether she will be able to go home as soon as she wanted. Objective: General Observation: Telemetry monitoring in place. Oropeza catheter in place. Bilateral knee-high TEDS on. Mental Status: Alert and oriented as to person, place, time, and purpose Pain: None reported ROM: Right Upper Extremity: Shoulder Flexion WFL. Shoulder abduction WFL. Elbow flexion WFL. Wrist flexion WFL. Opening and closing of hand WFL. Left Upper Extremity: Shoulder Flexion allows about 0-30 degrees. Shoulder abduction allows about 0-30 degrees. Elbow flexion WFL. Unable to actively make a fist. Opening and closing of hand severely impaired. Right Lower Extremity: Hip flexion WFL. Hip abduction WFL. Knee flexion WFL. Ankle dorsiflexion WFL. Ankle plantarflexion WFL. Left Lower Extremity: Hip flexion about 10 degrees while seated at edge of bed. Hip abduction about 10 degrees on gravity?eliminated plane. Knee flexion about 3 0 degrees. Knee extension -20 degrees. Ankle dorsiflexion absent. Minimal foot slap seen during transfer activity. Strength: Right Upper Extremity: Shoulder flexors 4/5. Shoulder abductors 4/5. Elbow flexors 4/5. Elbow extensors 4/5. Water Resource Engineering Specialist strong. Left Upper Extremity: Shoulder flexors 3-/5. Shoulder abductors 3-/5. Elbow flexors 3/5. Elbow extensors 3-/5. Water Resource Engineering Specialist absent. Right Lower Extremity: Hip flexors 5/5. Hip abductors 5/5. Knee flexors 5/5. Knee extensors 5/5. Ankle dorsiflexors 5/5. Ankle plantarflexors 5/5. Left Lower Extremity:Hip flexors 3-/5. Hip abductors 3/5. Knee flexors 4/5. Knee extensors 4/5. Ankle dorsiflexors 4/5. Ankle plantarflexors 4/5. Sensation: Intact as to pain and pressure on R upper and lower extremities, diminished on L UE/LE. Bed Mobility/Transfers: Supine to sit moderate assist using right UEs for support Sit to supine moderate assist with support to B LE needed Sit to stand moderate assist with moderate verbal cueing for sequence and safety using front wheeled walker Stand to sit moderate assist with moderate verbal cueing for sequence and safety Bed to chair moderate assist with moderate verbal cueing for sequence and safety using front wheeled walker Chair to bed moderate assist with moderate verbal cueing for sequence and safety using front wheeled walker Gait: Patient tolerated 60 feet +50 feet +100 feet of level surface ambulation using front wheeled walker with full weight bearing requiring moderate assist with moderate to maximal verbal cueing for sequence and overall safety. Wheelchair follow provided as patient has a pre-existing increased tendency to buckle on the left knee. Manual assist provided to left hand to remain on the left walker handle. Mild to moderate lateral pushing syndrome to the left felt and observed today. Patient continues to demonstrate decreased dorsiflexion on the left. Increased inversion on the left foot during swing phase seen. Verbal cues provided to increase hip and knee flexion for safety during swing. Balance: Static Sitting: Good Dynamic Sitting: Fair Static Standing: Poor Dynamic Standing: Poor Assessment: Patient continues to demonstrate left-sided hemiparesis resulting to functional mobility decline, balance impairment, increased fall risk, and inability to thrive at home alone. She will highly benefit from skilled physical therapy services in order to mitigate existing impairment level finding and functional limitations listed below. Patient was provided with skilled physical therapy services addressing impairment level findings and functional limitations listed below. Patient continues to present with clinical signs and symptoms consistent with current/admitting diagnoses that have resulted to mobility limitations, gait instability, generalized weakness, and impairment of motor control as demonstrated by the following impairment level findings: 1. Decreased strength to L UE/LE major muscle groups lack of functional use of left hand 2. Impaired sitting/standing balance 3. Impaired activity tolerance 4. Limitation of joint range of motion in L UE/LE 5. Mild lateral pushing syndrome to the left Impairments are continuing to contribute to the following functional limitations: 1. Dependent bed mobility skills 2. Increased dependence with transfers 3. Inability to safely ambulate without assistive device and physical assistance 4. Increase completion time for mobility ADL performance 5. Increased fall risk 6. Inability to negotiate steps alone safely Goals: Goals X1 week 1. Supine-Sit independent NOT MET 2. Sit-Supine independent NOT MET 3. Sit-Stand standby assist NOT MET 4. Stand-Sit standby assist NOT MET 5. Bed-Chair standby assist NOT MET 6. Chair-Bed standby assist NOT MET 7. Standby assist gait on level surface with use of least restrictive device for at least 300 feet without report of pain nor dyspnea NOT MET 8. Standby assist stair negotiation while holding onto bilateral rails for at least 10 steps without report of pain nor dyspnea NOT MET 9. Independent with home exercise program NOT MET 10. Good static and dynamic standing balance/tolerance NOT MET DISCHARGE RECOMMENDATIONS: Patient will be transferred to an acute care stroke rehab facility at [facility] today for continued rehabilitation. TREATMENT CODE/TIME: 42466 x 34 minutes beginning at 10:23 AM. Thank you very much for this referral. Lyndsey Haile PT, DPT, CLT [facility] [place], [place]
--- NOTE | 2019-12-28 11:01 | DSE_ITS ---
Date of service: 12/28/19 Time of Service: 11:01 DS: Diagnosis Discharge Diagnosis (1) Ischemic cerebrovascular accident (CVA): Status: Acute Asessment and Plan: Patient noted early in hospitalization for sepsis to have new onset left-sided motor deficits. Presumed thrombotic stroke related to acute inflammatory condition during sepsis. MRI of the brain showed changes of chronic microvascular ischemia with an acute infarct right frontal lobe near the right lateral ventricle. No evidence for an embolic source on echocardiogram. No significant intracranial atherosclerotic disease on MRA of the neck and brain. No dysrhythmias on telemetry monitoring. Extended cardiac monitoring recommended for 30 days post event. Dual antiplatelet therapy recommended for 30 days post event then transition to aspirin long-term. Permissive hypertension initially, targeting systolics around 140-150 given transient worsening of left arm weakness when blood pressures were lower. Continues to have left arm/hand weakness on discharge as well as possible worsening of memory impairment. (2) HTN (hypertension): Status: Chronic Asessment and Plan: Historically hypertensive. Blood pressures allowed to run high initially following her stroke. Lisinopril was introduced at her outpatient dose but then blood pressures, better controlled into the 120s, resulted in transient worsening of her left arm weakness. The dose was reduced to 2.5 mg with subsequent blood pressures in the 130-140 range systolic and slight improvement in neurologic functioning of her left hand. (3) Proteus septicemia: Status: Resolved Asessment and Plan: Initial presentation of sepsis with fever as high as 40.2 elevated inflammatory markers including procalcitonin of 35.8, white blood cell count of 12.8. Urinalysis with significant pyuria with subsequent urine and blood cultures growing Proteus mirabilis for which she received 10 days of IV antibiotics. Found to have bilateral obstructive ureteral lithiasis requiring urgent stenting. With relief of obstruction and antibiotics, defervesced and had no further fever elevations. Second set of blood cultures negative at 120 hours. (4) Ureteral calculus: Status: Acute Asessment and Plan: Bilateral kidney stones too large to expect spontaneo us passage. Presenting with obstruction and sepsis (as above) and urgent stents placed. Subsequently had CVA and felt that definitive management of her stones would need to be done in a tertiary center. Consultation between local urologist, Dr. Holman, and [facility] urology team took place, initial plans to transfer for management of her stones, on reconsideration, deferred to the outpatient setting. Stents remain in place and she has not had discomfort or hematuria with the stents. Planning for outpatient management of her stones needs to be completed?contact with [facility] urology will be needed from the rehab facility to determine timing and nature of further intervention for her bilateral stones. (5) Hyperlipidemia: Status: Chronic Asessment and Plan: Chronically on a statin for hyperlipidemia, the dose was changed to high-dose atorvastatin following her CVA. No adverse effects i dentified thus far with a higher dose. (6) Wenckebach block: Status: Chronic Asessment and Plan: Asymptomatic episodic second-degree heart block, Wenckebach type noted on heart monitoring. No symptoms associated with this. She was never on any AV parag blocking medications during this hospitalization. (7) DVT prophylaxis: Status: Acute Asessment and Plan: She received low-dose subcutaneous heparin for DVT prophylaxis during this hospitalization in addition to dual antiplatelet therapy. No bleeding complications encountered. (8) Pre-diabetes: Status: Chronic Asessment and Plan: Has a label of diabetes from outpatient notes, unknown at the time of admission and labeled as prediabetes based on hemoglobin A1c of 6.4%. Managed with carbohydrate controlled diet. (9) Discharge planning issues: Status: Acute Asessment and Plan: Following stroke, patient and family desires aggressive rehabilitation. Ultimate goal is to return home. (10) Lab test negative for COVID-19 virus: Status: Ruled-out Asessment and Plan: PCR for COVID-19 negative (11) Hypothyroid: Status: Chronic Asessment and Plan: No changes were made to her outpatient dose of levothyroxine. Discharge Plan Disposition Patient Disposition: [facility] Condition: Improving Discharge Details Chief Complaint: Nk/Back Pain Reason For Visit: PYELONEPHRITIS POST OBSTRUCTIVE WITH URETEROLITHIA Admit Date/Time: 12/18/19 21:12 Admit Provider: Grover Castro Attending Provider: Grover Castro Primary Care Provider: Sierra Stafford ED Provider: Bk Mancia Hospital Course Hospital Course: 79-year-old community dwelling woman presented to the emergency room December 17 with a 4-day history of low back pain and fever. Found on ER evaluation to have pyuria, elevated inflammatory markers, and CT scan showing bilateral hydronephr osis and stones, nearly 1 cm each. She had urgent placement of bilateral stents, blood and urine cultures drawn and empiric antibiotics initiated. Please refer to the above problems for hospital course by problem. Following her CVA, medications were adjusted as noted above. She had no further fever spikes, completed 10 days of antibiotics. Initiated physical therapy and had slight improvement in function of her left hand and arm. At the time of discharge, urology plans are still undefined in terms of definitive management of her ureteral stents and stones. She is felt to be not a candidate for treatment of her stones and our critical [facility]. [facility] urology is aware of her status and have requested outpatient follow-up but did not specify or schedule an appointment at the time of discharge. Home Meds and New Rx's Prescriptions: New atorvastatin [Lipitor] 40 mg Tablet 80 mg PO QPM Qty: 30 RF: 0 polyethylene glycol 3350 17 gram Powder In Packet 17 g PO DAILY PRN PRN (Reason: Constipation) Qty: 30 RF: 0 clopidogrel [Plavix] 75 mg Tablet 75 mg PO DAILY Qty: 30 RF: 0 docusate sodium [Colace] 100 mg Capsule 100 mg PO TID PRN PRNQty: 30 RF: 0 lisinopril 5 mg Tablet 2.5 mg PO DAILY Qty: 30 RF: 0 Refresh Plus 0.5 % Dropperette 0 ea OU PRN PRNQty: 1 RF: 0 pantoprazole 20 mg tablet,delayed release (DR/EC) 20 mg PO DAILY Qty: 30 RF: 0 Continued levothyroxine [Synthroid] 50 MCG tablet 50 mcg PO DAILY AM RF: 0 nitroglycerin [Nitrostat] 0.4 MG tablet, sublingual 0.4 mg Sublingual DIRECTED PRNRF: 0 aspirin 81 MG tablet,chewable 81 mg PO DAILY AM RF: 0 timolol maleate 15 ML drops 5 ml Ophthalmic DAILY AM RF: 0 oxybutynin chloride 5 MG tablet extended release 24hr 5 mg PO HS RF: 0 venlafaxine 75 mg Tablet 75 mg PO DAILY AM RF: 0 acetaminophen [Tylenol Extra Strength] 500 mg Tablet 1,000 mg PO HS RF: 0 metoclopramide HCl [Reglan] 10 mg Tablet 10 mg PO DAILY AM RF: 0 Discontinued simvastatin 20 MG tablet 20 mg PO HS RF: 0 omeprazole 20 MG capsule,delayed release(DR/EC) 20 mg PO DAILY AM RF: 0 mometasone 45 GM cream 15 gm Topical DAILY PRN PRNRF: 0 Gerber Multivitamin with Mineral 1 EACH tablet 1 ea PO HS RF: 0 celecoxib [Celebrex] 200 MG capsule 200 mg PO DAILY AM RF: 0 lisinopril 5 mg Tablet 5 mg PO HS RF: 0 Discharge Instructions Activity:: Activity as Tolerated Equipment/Supplies:: No Equipment Needed Diet:: Carb Counting Discharge Orders Discharge Orders: Discharge Order (Routine); Ordered 12/28/19 Ordered By: Jame Delgado DS: Summary Status at Discharge Functional status at discharge: uses cane/walker Overall status at discharge: patient is not back to baseline Mental Status: other Speech and Movement: delayed speech Mood: congruent mood and other Affect: normal affect Time Spent with Patient providing and/or coordinating discharge services: Greater than 30 minutes Exam Narrative Exam Narrative: On the morning of admission she is awake, forgetful, calm affect. She has some equivocal anisocoria, extraocular movements are intact and no reported diplopia. Temperature 37.2 blood pressure 137/88 sinus bradycardia on telemetry with occasional winky block. Weight 75.1 kg SaO2 on room air 95%. No JVD. Lungs clear. Regular heart rhythm with no S3 or S4 heard. Nontender abdomen with active bowel sounds. Extremities are warm with 1+ pulses in the lower extremities and no pitting edema. She has antigravity power in the left arm with some pronator drift. Limited bilingual social worker strength of the left hand. Antigravity power present in the left leg. Sits up unassisted without truncal ataxia. She knows she is in the hospital and why. Psych Mental Status: other Speech and Movement: delayed speech Mood: congruent mood and other Affect: normal affect DS: Data Vitals/I&O Vitals and I&O: Vital Signs Temperature 37.2 C 12/28/19 08:15 Temperature Source Tympanic 12/28/19 08:15 Pulse 70 12/28/19 08:15 Pulse Rhythm Regular 12/28/19 08:32 Pulse 88 12/18/19 20:01 Respiratory Rate 17 12/28/19 08:15 Respiratory Effort Non-Labored 12/28/19 08:32 Respiratory Depth Normal 12/28/19 08:32 Respiratory Pattern Normal 12/28/19 08:32 Blood Pressure 137/88 12/28/19 08:15 Blood Pressure Mean 79 12/18/19 20:01 Blood Pressure Position Supine 12/18/19 15:15 Pulse Oximetry 95 12/28/19 08:15 Oxygen Delivery Method Room Air 12/28/19 08:15 Oxygen Flow Rate 0 12/28/19 08:15 Pain Level 0 12/28/19 08:15 Comment 12/27/19 17:18 Intake & Output 12/27/19 12/27/19 12/28/19 11:59 23:59 11:59 Intake Total 240 / 1250 1010 / 1250 720 / 720 Output Total 700 / 1225 525 / 1225 475 / 475 Balance -460 / 25 485 / 25 245 / 245 Weight 76.8 kg 75.1 kg Intake: IV 50 / 50 Oral 240 / 1200 960 / 1200 720 / 720 Output: Urine 700 / 1225 525 / 1225 475 / 475 Other: Urine Color Yellow Yellow Yellow Urine Appearance Clear Clear Clear Urine Odor Normal Stool Size Large Stool Characteristics Formed Hard Echocardiogram performed December 18, 2019 with normal LV size and function, estimated LVEF 60%. No valvular abnormalities or evidence of vegetations. MRI of the neck and brain as noted above by problem. TSH 2.74. 25 hydroxy vitamin D slightly low at 21.3, 1, 25 dihydroxy vitamin D is pending at the time of this dictation. Total cholesterol 141, LDL cholesterol 87. BUN 24 creatinine 1.05. Hemoglobin A1c 6.4%. Hemoglobin 11.8 hematocrit 35.8 platelet count 403,000 white count 6.28 [facility] Medical History Bilateral kidney stones (Acute) CAD (coronary artery disease), [place] coronary artery (Acute) Depression (Chronic) DNI (do not intubate) (Acute) DNR (do not resuscitate) (Acute) Fatty infiltration of liver (Acute) GERD (gastroesophageal reflux disease) (Chronic) Glaucoma (Chronic) Goals of care, counseling/discussion (Acute) HTN (hypertension) (Chronic) Hyperlipidemia (Acute) Hypothyroid (Chronic) OAB (overactive bladder) (Acute) Obesity (BMI 30.0-34.9) (Acute) Osteoarthritis (Chronic) Palliative care patient (Chronic) POLST (Physician Orders for Life-Sustaining Treatment) (Acute) done 12/22/19 Proteus septicemia (Acute) Right frontal lobe lesion (Chronic) stroke 12/21/19 Surgical History Nephrostomy status (Acute) Family History Mother , age 82 on hospice from lung cancer Lung cancer Father , age 65 from acute OR Myocardial infarction Daughter No problems noted. 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 Her sense of time around his is inaccurate. Still grieving. Lives alone in [place]. Daughter Kristy in [facility]. Kristy has encouraged her mother to be more active; she resists. Very afraid of getting rabies from foxes and coyotes; hates to go o [place].
--- NOTE | 2019-12-28 11:55 | W.NUTRFU ---
Date of service: 12/28/19 Time of Service: 11:56 Nutritional Follow up NOTE: Charity continues to meet nutrient and fluid needs. No new nutritional recommendations at this time. Time Spent in Nutritional Counseling and Treatment: 0
[2019-12-28 12:12] VITALS: BP 116/72; PULSE 79; RESP 18; TEMP 36.1; O2SAT 96
[2019-12-28] MEDS: Acetaminophen 325 MG TAB 650 MG PO (13:08)
--- NOTE | 2019-12-28 13:57 | PDOC.CMDIS ---
- If Service Date Differs Date of service: 12/28/19 Time of Service: 13:57 LACE Index Scoring Tool - Questions: Length of Stay (in days): 7 - 13 Acuity (Admit via E.D.?): Yes Comorbidities: Cerebrovascular Disease, Mild Liver/Renal Disease E.D. Visits: 1 - Answers: Total Score: 12 Risk of Readmission: High Risk Care Management Discharge Reason for Hospitalization: Obstructing ureteral stone on the right with hydronephrosis and possible pyelonephritis. Discharge Plan: Charity will go to the [facility] Acute inpatient rehab facility for acute rehab post CVA. She will transport via [facility], coordinated by RICK. RICK spoke to Talon, her daughter, who was happy to hear that her mother was accepted. Charity will follow up with Urology at [facility] after rehab. Patient/Family Education Needs: Review discharge instructions with pt, family, and staff at [facility]. RICK spoke to Kristy regarding plans for her mother post discharge from [facility], as she may need continued care. RICK sent a referral to [facility] for options counseling. Services Needed at Discharge: Residential Facility ([facility], Acute rehab), Transportation ([facility])
--- NOTE | 2019-12-28 14:09 | CHAPLAIN ---
Charity was going to be transferred to [facility] yesterday to remove kidney stones, then plans changed has she was discharged to [facility]. She said she hopes to gain movement and strength back in her left arm and hand so she can play the piano again. She was hoping to see her daughter, Kristy, an [facility] nurse, before she left. I don't know if that happened. Charity is grateful for the help she receives from Kristy, and another daughter who lives in [place], [place]. Charity's three years ago and her brother Humberto, a few weeks ago. Charity gave me permission to contact the sound printer, . Natividad Linn, at [facility] and ask her to visit Charity.
--- NOTE | 2019-12-29 07:32 | OTDS_ITS ---
Date of service: 12/29/19 Time of Service: 07:32 Occupational Therapy Notes Occupational Therapy Inpatient Discharge Summary Date: 12/29/19 Dates of Service: 12/23/19-12/29/19 Referring Doctor: Yudi Hu MD OT Orders: Non-Urgent, Evaluate and Treat Precautions: Fall, Standard, DNR/DNI This document serves as a summary of care, no skilled OT services provided for this documentation. PATIENT PROFILE/ADMITTING DIAGNOSIS: Pt is a 79 year old female who presented to the ER on 12/18/19 with c/o neck and back pain for 4 days prior. She was seen for a urology consult at that time ad it was determined that she had sepsis syndrome and uretal calculus. She was admitted to [facility] for IV antibiotics and drainage of presumed infected (R) kidney with an operation performed by Dr. Holman on 12/18/19. It was determined that pt had an obstructing uretal stone on (R) with hydronephrosis and possible pyelonephritis. She was admitted with the following dx at the time; UTI, uretal calculus, esophageal abnormalty, hyperlipidemia, HTN, DACIA, hypothyroid, DVT prophylaxis. Pt had a fall recently and was also diagnosed with ischemic CVA with (L) hemiparesis. OT consult was requested for evaluation of pts functional (I) in regards to her ADL/IADL routines. Past Medical History- Medical History (Updated 12/22/19 @ 15:33 by Iman Brooke MD) Bilateral kidney stones (Acute) CAD (coronary artery disease), mo[place] coronary artery (Acute) Depression (Chronic) DNI (do not intubate) (Acute) DNR (do not resuscitate) (Acute) Fatty infiltration of liver (Acute) GERD (gastroesophageal reflux disease) (Chronic) Glaucoma (Chronic) Goals of care, counseling/discussion (Acute) HTN (hypertension) (Chronic) Hyperlipidemia (Acute) Hypothyroid (Chronic) OAB (overactive bladder) (Acute) Obesity (BMI 30.0-34.9) (Acute) Osteoarthritis (Chronic) Palliative care patient (Chronic) POLST (Physician Orders for Life-Sustaining Treatment) (Acute) done 12/22/19 Proteus septicemia (Acute) Right frontal lobe lesion (Chronic) stroke 12/21/19 Surgical History (Updated 12/22/19 @ 15:10 by Iman Brooke MD) Nephrostomy status (Acute) Social History/Home Situation: Pt lives alone in [place], [place]. Her daughter is her support person. She has been previously driving (I) but per daughters report she has noticed increased blind spots. PCP did do testing for pt which all came back negative at the time. Pt states that she has a neighbor who she is very close with. She notes that she has one step to enter her home. She has railings in place. She reports that she is (I) at baseline. She has a tub/shower with a shower bench. She has a raised toilet seat and a walker that she bought for her when he was alive. She notes that she has two daughters both of which work in the medical field. Equipment owned/DME: shower bench, FWW, raised toilet seat, shoe horn, sock aid. SUBJECTIVE: NT OBJECTIVE: ROM: RUE AROM WFL L UE Actively pt is able to achieve 100* flexion, increased performance time and she can achieve elbow flexion and extension with decreased gross and fine motor control, when supported (I) with ideal wrist extension. STRENGTH: RUE 4/5 throughout LUE Shoulder flexion 2-/5, bicep/tricep 2/5, daily release and dupe printer is weak SENSATION: Intact per pt report (B) FUNCTIONAL MOBILITY/ADLS: Transfers with FWW BATHING: sitting in chair with max (A) set up (I) with use of (R) UE for (L) UE and face as well as abdomen and (B) LE to knees. Pt attempted to wash (R) UE with (L) but was unable to reach with her AROM at this time. EATING: Seated in chair (I) DRESSING Sitting in chair Dressing LE Max (A) don and doffing (B) socks and shoes, she denies any adaptive equipment. GROOMING Able to (I) brush her hair in seated position with (R) UE, can touch hair with (L) with decreased gross and fine motor control. TOILETING NT BALANCE: Static sitting Normal Dynamic Sitting Good ASSESSMENT: Patient is a 79-year-old female referred to occupational therapy services with diagnosis of UTI, uretal calculus, esophageal abnormalty, hyperlipidemia, HTN, DACIA, hypothyroid, DVT prophylaxis. Pt was seen for 4 skilled OT sessions. She has made gains in terms of her (L) UE ROM but is still limited at this time. She was discharged on 12/28/19 to [facility] for further rehabilitation. OT feels that pt will benefit from this to increase her functional activity tolerance and overall functional (I) in ADL/IADL routines. GOALS 1. Transfers with FWW (S) 2. Dressing mod (I) with don and doffing (B) socks, (I) don and doffing hospital gown - not met 3. Bathing seated position (I) UE with min (A) (B) LE- not met 4. Toileting on toilet min (A)- progressing towards 5. Eating (I)- met PLAN OF CARE/TREATMENT PLAN: Pt was discharged on 12/28/19 to [facility]. DISCHARGE RECOMMENDATIONS Based on pts current level of functional and demonstration of (L) side neglect pt will require (A) in order to perform her ADL/IADLs at this time. OT recommends that pt go to SNF for short term stay, if pt does return home she will require HH services and (A) in order to perform her ADLs/IADLs in the home setting. TREATMENT TIME/MINUTES/CODES N/A Archana Feliciano OTR/L [facility] [place], [place]
[2019-12-30 00:56] LABS: 1,25-Dihydroxyvitamin D 26 pg/mL (18-78)
== END 2019-12-28 13:20 | disposition short-term general hospital (02) | DRG 853 ==
LOC: ER 19:25 → DSU 20:23 → MS 21:51 → DSU 12-21 10:39 → ER 12-21 10:39
PROVIDERS: Internal Medicine; Nurse Practitioner Family; Urology; Admitting Provider Family Medicine; Emergency Provider Emergency Medicine; PCP Nurse Practitioner Family; Visit Provider Internal Medicine
PROC: 0T788DZ Dilation of Bilateral Ureters with Intraluminal Device, Via Natural or Artificial Opening Endoscopic (ICD-10-PCS; CPT 52332; principal; 2019-12-18 19:45)
DX: A41.89 Other specified sepsis (principal); I63.311 Cerebral infarction due to thrombosis of right middle cerebral artery; N13.6 Pyonephrosis; N20.1 Calculus of ureter; N17.9 Acute kidney failure, unspecified; G81.94 Hemiplegia, unspecified affecting left nondominant side; Z16.11 Resistance to penicillins; Z16.23 Resistance to quinolones and fluoroquinolones; Z16.29 Resistance to other single specified antibiotic; N20.0 Calculus of kidney; I10 Essential (primary) hypertension; R13.10 Dysphagia, unspecified; R29.810 Facial weakness; R41.3 Other amnesia; H53.9 Unspecified visual disturbance; Z51.5 Encounter for palliative care; Z71.89 Other specified counseling; E78.5 Hyperlipidemia, unspecified; I44.1 Atrioventricular block, second degree; R73.03 Prediabetes; Z03.818 Encounter for observation for suspected exposure to other biological agents ruled out; E03.9 Hypothyroidism, unspecified; F32.9 Major depressive disorder, single episode, unspecified; K21.9 Gastro-esophageal reflux disease without esophagitis; I25.10 Atherosclerotic heart disease of native coronary artery without angina pectoris; Z87.440 Personal history of urinary (tract) infections; Z79.82 Long term (current) use of aspirin; R29.704 NIHSS score 4; Z66 Do not resuscitate; Z78.9 Other specified health status; H40.9 Unspecified glaucoma; F10.10 Alcohol abuse, uncomplicated
CPT/HCPCS: 52332; 52005; 36415; 36416; 70544; 70547; 76000; 80048; 80053; 80061; 82306; 82962; 84145; 85027; 87040; 87077; 93306; 96361; 96365; 96374; 97110; 97112; 97162; 97166; 97530; 97535; 99222; 99223; 99232; 99233; 99239; 99253; 99255; 99285; U0003; 70450; 70551; 71046; 74176; 74420; 80329; 81003; 81015; 82652; 83036; 83735; 84443; 85025; 86140; 87086; 87186; 99356; J0131; J0696; J1644; J1885; J2001; J2405; Q9967

== ENCOUNTER → 2019-12-22 08:18 | Outpatient (BNVA) | payer MEDICARE, OTHER, SELFPAY | PROVIDERS: PCP Nurse Practitioner Family; Referring Provider Nurse Practitioner Family; Visit Provider Psychiatry & Neurology Neurology | DX: R69 Illness, unspecified (principal) ==

== ENCOUNTER 2021-05-15 12:41 | Outpatient (CLI) | payer MEDICARE, OTHER, SELFPAY ==
--- NOTE | 2021-05-15 | DI.US_ITS ---
APPROVED REPORT EXAM: Comprehensive 2D, Doppler, and color-flow Echocardiogram Patient Location: Out-Patient Incubator Machine Operator: Kelly Downs RDCS (AE) Indications: Bradycardia, Near Syncope Other Information Study Quality: Adequate Conclusion Normal left ventricular wall thickness and chamber size. Estimated ejection fraction is 60%. There are no segmental wall motion abnormalities Normal right ventricular size and systolic function Both atria are normal in size Aortic valve is mildly sclerotic and trileaflet with trace regurgitation Mild mitral annular calcification. Mild mitral regurgitation Normal tricuspid valve with trace to mild regurgitation. Estimated right ventricular systolic pressu re is 22 mmHg Mildly dilated ascending aorta measuring 3.6 cm Wall motion Left Ventricle The left ventricle is grossly normal size. The left ventricular systolic function is normal. The left ventricular ejection fraction is within the normal range. There is normal left ventricular wall thic kness. There is normal LV segmental wall motion. There is no ventricular septal defect visualized. LV EF is 60%. Right Ventricle The right ventricle is normal size. The right ventricular systolic function is normal. The RVSP is 22 .1 mmHg. Atria The left atrium size is normal. The right atrium size is normal. The interatrial septum is intact wit h no evidence for an atrial septal defect. Aortic Valve The Aortic valve is mildly sclerotic. Aortic valve is trileaflet. There is no aortic valvular stenosi s. Trace aortic regurgitation. Mitral Valve Mild mitral annular calcification. No evidence of mitral valve stenosis. Mild mitral regurgitation. Tricuspid Valve The tricuspid valve is normal in structure. There is no tricuspid valve stenosis. Trace to mild tricu spid regurgitation. Pulmonic Valve The pulmonary valve is normal in structure. There is no pulmonic valvular stenosis. Trace pulmonic re gurgitation. Great Vessels The aortic root is normal in size. The ascending aorta is mildly dilated.3.6 cm Aortic arch is not we ll visualized. IVC is normal in size and collapses >50% with inspiration. Pericardium There is no pericardial effusion. 2D Dimensions IVSD d PLAX 1.02 cm F: 0.6-1.0 LV Vol A2C d MOD 64.8 mL LVPW d PLAX 1.00 cm F: 0.6 - 1.0 LV Vol A4C d MOD 60.7 mL LVID d PLAX 4.36 cm F: 3.8 - 5.2 LA vol/ BSA A2C s A-L 13.1 mL/m2 LVDs 2.95 cm F: 2.2 - 3.5 LA vol/ BSA A4C s A-L 19.3 mL/m2 Ao Root d 2.38 cm F: 2.7 - 3.3 LA Vol/ BSA Biplane s A-L 18.8 mL/m2 RA Area A4C 10.01 cm2 LA Area A4C s MOD 14.67 cm2 RA Vol/ BSA A4C s A-L 11.6 mL/m2 LA Area A2C s MOD 10.19 cm2 Ao Asc Diam d 3.60 cm F: 2.3 - 3.1 LV EF A4C MOD 60.3 % LV EF Teichholz 59.6 % LV EF A2C MOD 62.0 % LVEF (Goldberg's) 59.16 % F: 54 - 74 LV EF Biplane MOD 59.2 % LV Volume 50.62 mL F: 46 - 106 SV 38.50 mL LV Volume Index 28.12 mL/m2 F: 29 - 61 SV Index 21.39 mL/m2 LV Vol Biplane MOD 65.1 mL FS 31.40 % M-Mode TAPSE 2.41 cm (M/F) >1.7 LV Diastology MV E' medial 0.081 (>0.07 m/s) E/A Ratio 0.9 LV E/e MED 9.35 (<14) MV E Vmax 0.76 (0.4-1.3 m/s) MV E' lateral 0.100 (>0.1 m/s) MV A Vmax 0.85 (0.4-1.3 m/s) LV E/e LAT 7.60 (<14) MV E/A Ratio 0.85 MV E/E' medial 9.40 MV E/E' lateral 7.65 Aortic Valve LVOT Area 3.05 cm2 AoV Area Vmax 2.66 cm2 LVOT Vmax 1.19 m/s AoV Area/ BSA (Vmax) 1.48 cm2/m2 LVOT Mean Jovon. 0.83 m/s AMILCAR Mean Jovon. 2.51 cm2 LVOT Peak Grad 5.7 mmHg AMILCAR Mean Jovon. Index 1.39 cm2/m2 LVOT Mean Grad 3.0 mmHg AR DT 2796 msec LVOT VTI 0.248 m AR PHT 811 msec LVOT Diam s 1.95 cm AoV Vmax 1.37 m/s Velocity Ratio 0.86 AoV Mean Jovon. 1.01 m/s AoV Peak Grad 7.5 mmHg LVOT SV 75.79 mL AoV Mean Grad 4.5 mmHg AoV VTI 0.285 m AoV Area VTI 2.66 cm2 AoV Area/ BSA (VTI) 1.48 cm/m2 Mitral Valve MV DT 204 (160-240 msec) MR Vmax 4.19 m/s MV PHT 59 msec MR VTI 1.375 m MV Area PHT 3.72 cm2 MR Peak Grad 70.2 mmHg MV VTI 0.231 m MR Mean Grad 56.7 mmHg MV Area VTI 3.28 (4.0-6.0 cm2) MR PISA Radius 0.54 cm MR EROA 0.16 cm2 MR Aliasing Velocity 0.35 m/s MR PISA 1.86 cm2 Pulmonary Valve PV Vmax 1.00 (0.5-1.5 m/s) RVOT Peak Gr. 1.38 mmHg PV Peak Grad 4.0 mmHg RVOT Mean Gr. 0.75 mmHg PV Mean Grad 2.7 mmHg RVOT VTI 0.104 m PV VTI 0.195 m RVOT Vmax 0.59 m/s Tricuspid Valve TR Peak Grad 19.1 mmHg TR Vmax 2.19 m/s RA Pressure 3.00 mmHg RVSP (TR) 22.1 mmHg
== END 2021-05-15 13:01 ==
PROVIDERS: Visit Provider Internal Medicine Cardiovascular Disease
DX: R55 Syncope and collapse (principal); I08.1 Rheumatic disorders of both mitral and tricuspid valves; I77.810 Thoracic aortic ectasia
CPT/HCPCS: 93306

== ENCOUNTER → 2021-08-31 10:15 | Outpatient (BNVA) | payer MEDICARE, OTHER, SELFPAY | PROVIDERS: Visit Provider Student in an Organized Health Care Education/Training Program | DX: M17.11 Unilateral primary osteoarthritis, right knee (principal) | CPT/HCPCS: 20610; J1040 ==